=== PATIENT | male | born 1965 | race Caucasian/White ===

== ENCOUNTER 2017-01-27 14:23 | Inpatient (IN) ==
--- NOTE | 2017-01-27 16:00 | Emergency Department Note ---
Disposition Clinical Impression: Left upper arm pain Deep venous thrombosis of upper extremity Qualifiers: Affected thrombotic vein of extremity: other upper extremity vein Chronicity: acute Laterality: left Qualified Code(s): I82.622 - Acute embolism and thrombosis of deep veins of left upper extremity Disposition: Admitted As Inpatient Condition: Fair Time of Disposition: 19:52 General Adult HPI - General Chief complaint: ED Chest Pain Stated complaint: Left shoulder pain x 7 days Time Seen by Provider: 01/27/17 15:16 Source: patient Limitations: no limitations Nursing Notes Reviewed: Yes Vital Signs Reviewed: Yes - History of Present Illness HPI Narrative: [id number] male presents to ED for onset of left arm pain 8 days ago. Patient presents with abnormal vitals of tachycardia and hypertension, and is diaphoretic Patient states gradual onset of fairly noticeable pain that progressively worsened to 8 out of 10 sharp almost constant pain in his left arm. Patient states he has never had this before. Patient has a history of previous DVT in the right leg secondary to crush injury and muscle rupture. Patient has a history of hyper lipidemia, hypertension, diabetes, back fracture. Pain Scale: 8 - Related Data Home Medications Medication Instructions Recorded Confirmed metFORMIN [Glucophage] 1,000 mg PO BID 10/06/15 01/27/17 Amitriptyline [Elavil] 10 mg PO HS 01/27/17 01/27/17 Lisinopril/Hydrochlorothiazide 1 each PO QAM 01/27/17 01/27/17 [Zestoretic 20-12.5 mg Tablet] Meloxicam [Meloxicam] 7.5 mg PO DAILY 01/27/17 01/27/17 Metoprolol Succinate [Metoprolol 100 mg PO QPM 01/27/17 01/27/17 Succinate] amLODIPine [Norvasc] 5 mg PO DAILY 01/27/17 01/27/17 Allergies Allergy/AdvReac Type Severity Reaction Status Date / Time gabapentin AdvReac Gastrointestinal Verified 01/27/17 19:56 Upset Review of Systems: Patient denies fever, chills, cough, headache, nausea vomiting or diarrhea, vision changes, lightheadedness, chest pain, heart palpitations All systems ED: reviewed and negative except as stated. Review of Systems: As Per HPI Past Medical History - Past Medical History Attestation: Yes The following information was validated with the patient. Source: patient Medical history: Reports: DVT, diabetes, hypertension, kidney stones, other Psychiatric history: Reports: no psych history - Social History Smoking Status: Never smoker Smokeless Tobacco Status: Yes Alcohol use: Reports: occasionally Drug use: Reports: none Physical Exam Vital Signs Temperature 98.5 F 01/27/17 14:43 Pulse Rate 147 01/27/17 14:43 Respiratory Rate 20 01/27/17 14:43 Blood Pressure 144/94 01/27/17 14:43 O2 Sat by Pulse Oximetry 96 01/27/17 14:43 Temperature 97.5 F L 01/27/17 22:57 Pulse Rate 106 01/27/17 22:57 Respiratory Rate 18 01/27/17 22:57 Blood Pressure 130/95 01/27/17 22:57 O2 Sat by Pulse Oximetry 97 01/27/17 22:57 Oxygen Delivery Oxygen Delivery Room Air -General Appearance: Patient is a 51-year-old male who is alert and oriented 3 in no acute distress patient is uncomfortable secondary to pain in the left upper extremity -Neurological exam: Cranial nerves II-12 intact, no focal deficits observed, strength 5/5 right upper extremity and 4/5 of the upper extremity, no pronator drift, decreased sensation in left upper Extremity compared to right upper extremity, decreased net sql developer strength. Patient also has has decreased sensation to touch when compared to right upper extremity. No signs of trauma. - Head Head exam: atraumatic, normocephalic, normal inspection - Eye Eye exam: Present: normal appearance, PERRL, EOMI, negative for scleral icterus negative for conjunctival pallor - ENT ENT exam: normal exam, normal oropharynx, mucous membranes moist - Neck Neck exam: Present: normal inspection, full ROM, trachea midline, negative JVD - Chest Chest inspection: Present: Patient has bilateral equal rise and fall of chest wall. Non-tender to palpation. - Respiratory Respiratory exam: Clear to auscultation bilaterally without wheezes rales or rhonchi Cardiovascular Cardiovascular exam: Present: Fast rate normal rhythm no murmur rubs or gallops - Abdominal Exam Abdominal exam: Present: soft, nondistended, Non-Tender light and deep palpation in all quadrants. Bowel sounds normoactive throughout all 4 quadrants. Negative for hyper or hyperresonance. - Extremities Exam Extremities exam: Present: normal inspection, full ROM - Back Exam Back exam: Present: normal inspection, full ROM. Absent: tenderness, CVA tenderness (R), CVA tenderness (L) - Psychiatric Psychiatric exam: Present: normal affect, normal mood - Skin Skin exam: Present: warm, dry, intact, normal color - General Limitations: no limitations General appearance: alert Course - Reevaluation(s) Reevaluation #1: On reexamination patient's pain is 1/10 after 2 mg of morphine but still painful to palpation. Patient's skin tone and left upper extremity is more tender than right and slightly swollen. Patient has an elevated d-dimer 703 at this raises concern for possible DVT in her left upper extremity 1 and ACS at this time. We will perform X Violette Doppler. Patient's troponin is 0.00. Of note patient has a newly elevated creatinine for acute ALIREZA. Patient also states he has not IVC filter in place. Ordered 4 mg morphine as patient will be going for Doppler study. Time: 17:28 Reevaluation #2: Patient received a second dose of medications and is pain-free. Patient's Doppler study revealed DVT of basilic vein and left forearm. Patient has been informed and agrees to begin treatment with heparin and admission. Time: 19:46 - Consultations Consultation #1: Patient was scheduled for admission by hospitalist Dr. Jenkins Time: 19:56 Vital Signs Temperature 98.5 F 01/27/17 14:43 Pulse Rate 147 01/27/17 14:43 Respiratory Rate 20 01/27/17 14:43 Blood Pressure 144/94 01/27/17 14:43 O2 Sat by Pulse Oximetry 96 01/27/17 14:43 Temperature 97.5 F L 01/27/17 22:57 Pulse Rate 106 01/27/17 22:57 Respiratory Rate 18 01/27/17 22:57 Blood Pressure 130/95 01/27/17 22:57 O2 Sat by Pulse Oximetry 97 01/27/17 22:57 Oxygen Delivery Oxygen Delivery Room Air Medical Decision Making - [facility] Narrative Medical decision making narrative: Patient presented to the ED with concerns for possible ACS/NE, PE, DVT, CVA/ stroke/TIA, thoracic outlet obstruction. Given patient's history of previous DVT (provoked secondary to crush injury ) and worsening symptoms over the past 8 days along with presenting extremity showing slight edema and increase tanning of the skin from proximal forearm through distal part of forearm my clinical suspicion for DVT is high. I discussed this with my attending Dr. Plunkett who concurred with my assessment. After ruling out ACS with negative EKG, chest x-ray and troponins patient's d-dimer was elevated and so I ordered Doppler study of left upper extremity which showed basilic vein DVT. Patient was started on heparin and admitted to the hospital. Patient understands and agrees to treatment and plan. Patient's currently doing well in no acute distress and resting comfortably. - Medical Records Medical records reviewed: Yes I reviewed the patient's medical records. Old Records show MRI imaging for patient's history concerning lumbar fractures and patient has seen pain management past for his back injuries - Lab Data Lab results reviewed: Yes I reviewed the patient's lab results. Lab results narrative: Short CBC 01/27/17 Range/Units 15:38 WBC 6.3 (4.3-11.1) K/mcL Hgb 15.9 (12.9-16.9) g/dL Hct 46.5 (37.5-50.1) % Plt Count 193 (140-400) K/mcL Neutrophils # 4.1 (1.6-8.9) K/mcL BMP 01/27/17 Range/Units 15:38 Sodium 139 (136-145) mEq/L Potassium 4.4 (3.5-4.5) mEq/L Chloride 104 (98-109) mEq/L Carbon Dioxide 24 (19-29) mEq/L BUN 24 (8-26) mg/dL Creatinine 1.32 H (0.72-1.25) mg/dL Glucose 318 H (70-99) mg/dL Calcium 10.0 (8.6-10.8) mg/dL Cardiac Enzymes 01/27/17 01/27/17 Range/Units 20:27 15:38 Troponin I 0.00 0.00 (0-0.03) ng/mL Result diagrams: 01/27/17 15:38 01/27/17 15:38 Lab Results 01/27/17 01/27/17 01/27/17 Range/Units 15:38 15:38 15:38 WBC 6.3 (4.3-11.1) K/mcL RBC 5.37 (4.19-5.50) M/mcL Hgb 15.9 (12.9-16.9) g/dL Hct 46.5 (37.5-50.1) % MCV 86.6 (83.0-100.0) fL MCH 29.6 (28.0-33.3) pg MCHC 34.2 (31.6-35.5) g/dL RDW 12.5 (11.5-14.5) % Plt Count 193 (140-400) K/mcL MPV 10.1 (9.4-12.4) fL Immature Gran % 0.6 (0-4) % Seg Neutrophils % 64.6 % Lymphocytes % 25.6 % Monocytes % 7.0 % Eosinophils % 1.6 % Basophils % 0.6 % Neutrophils # 4.1 (1.6-8.9) K/mcL Lymphocytes # 1.6 (0.6-4.6) K/mcL Monocytes # 0.4 (0.0-1.3) K/mcL Eosinophils # 0.1 (0.0-0.6) K/mcL Basophils # 0.0 (0.0-0.2) K/mcL PT (9.4-12.1) Seconds INR APTT (26.0-36.0) Seconds Fibrinogen (169-393) mg/dL D-Dimer (0-500) ng/mLFEU Heparin Anti-Xa, Unfract (0.30-0.70) IU/mL Sodium 139 (136-145) mEq/L Potassium 4.4 (3.5-4.5) mEq/L Chloride 104 (98-109) mEq/L Carbon Dioxide 24 (19-29) mEq/L BUN 24 (8-26) mg/dL Creatinine 1.32 H (0.72-1.25) mg/dL Est GFR ( Amer) > 60 (> 60) Est GFR (Non-Af Amer) 58 L (> 60) BUN/Creatinine Ratio 18 (6-26) Glucose 318 H (70-99) mg/dL Calculated Osmolality 304 H (280-300) Calcium 10.0 (8.6-10.8) mg/dL Troponin I 0.00 (0-0.03) ng/mL 01/27/17 01/27/17 01/27/17 Range/Units 15:38 20:27 20:27 WBC (4.3-11.1) K/mcL RBC (4.19-5.50) M/mcL Hgb (12.9-16.9) g/dL Hct (37.5-50.1) % MCV (83.0-100.0) fL MCH (28.0-33.3) pg MCHC (31.6-35.5) g/dL RDW (11.5-14.5) % Plt Count (140-400) K/mcL MPV (9.4-12.4) fL Immature Gran % (0-4) % Seg Neutrophils % % Lymphocytes % % Monocytes % % Eosinophils % % Basophils % % Neutrophils # (1.6-8.9) K/mcL Lymphocytes # (0.6-4.6) K/mcL Monocytes # (0.0-1.3) K/mcL Eosinophils # (0.0-0.6) K/mcL Basophils # (0.0-0.2) K/mcL PT 10.5 (9.4-12.1) Seconds INR 1.0 APTT 24.8 L (26.0-36.0) Seconds Fibrinogen 267 (169-393) mg/dL D-Dimer 703 H 826 H (0-500) ng/mLFEU Heparin Anti-Xa, Unfract 0.01 L (0.30-0.70) IU/mL Sodium (136-145) mEq/L Potassium (3.5-4.5) mEq/L Chloride (98-109) mEq/L Carbon Dioxide (19-29) mEq/L BUN (8-26) mg/dL Creatinine (0.72-1.25) mg/dL Est GFR ( Amer) (> 60) Est GFR (Non-Af Amer) (> 60) BUN/Creatinine Ratio (6-26) Glucose (70-99) mg/dL Calculated Osmolality (280-300) Calcium (8.6-10.8) mg/dL Troponin I 0.00 (0-0.03) ng/mL - Radiology Data Radiology results reviewed: Yes I reviewed the patient's radiology results. Chest X-Ray 01/27/17 16:03 IMPRESSION: No acute process. D/ / Avni Temple MD / Avni Temple MD Interpreting Provider: Avni Temple MD
[2017-01-27] MEDS ORDERED: Aspirin 81 MG TAB.CHEW PO ONE (16:18)
--- NOTE | 2017-01-27 16:25 | Emergency Department Note ---
START Narrative - START START: I examined this patient and my medical decision-making was reviewed with the ELECTRIC MOTOR ASSEMBLER AND TESTER/PA/Advanced Practice Nurse/Resident Physician. I agree with the documented findings, disposition and treatment plan as described except to the extent set forth below. ED attending note: I saw this Patient with the emergency medicine resident Dr. BAEZ. Please see a copy of his note for details of the H&P, evaluation, management and disposition of this emergency Department patient. We independently had oepy-ca-eowy contact with the patient. Briefly: A 51-year-old male drove himself from the [facility] for 8 days of atraumatic left arm pain and numbness. Patient has past medical history significant for chronic back pain hypertension hyperlipidemia tobacco use and diabetes. He has had no cardiac workup in the past. His father had his first heart attack in his mid 30s. Patient arrives tachycardic between 125 and 135 sinus rhythm. He is slightly tremulous and appears anxious and he says he is "in a heck of a lot of pain". He states he gets like this when the pain gets real bad. Denies fever, sputum, chills, ill contacts, recent travel or medication changes. His neurologic examination showed that he has some dysesthesias but no focal motor weakness. He has no skin changes. Denies IV drug use. Denies any trauma to his upper extremity. States she has been feeling a little short of breath as well. Patient will be getting parenteral fluids anti-medics pain medicine and anxiolytics and will screen for acute coronary syndrome with troponin chest x-ray and other screening labs. Patient does have a prior history of DVT that was provoked from a muscle tear. We will also obtain a d-dimer since he is low risk. Providing 30 minutes of critical care services for this patient. Disposition pending.
[2017-01-27] MEDS ORDERED: 0.9 % Sodium Chloride 500 ML IVC ONE (16:26)
[2017-01-27] MEDS ORDERED: Ondansetron 4 MG/2 ML VIAL IVP ONE ×2 (16:27→20:02)
[2017-01-27] MEDS ORDERED: *HR* LORazepam 2 MG/ML VIAL IVP ONE ×2 (16:28→19:46)
[2017-01-27] MEDS ORDERED: *HR* Morphine 2 MG/ML SYRINGE IVP PRN (16:29)
[2017-01-27 16:45] LABS: Basophils % 0.6 %; Eosinophils # 0.1 K/mcL (0.0-0.6); Eosinophils % 1.6 %; Hematocrit 46.5 % (37.5-50.1); Hemoglobin 15.9 g/dL (12.9-16.9); Immature Granulocytes % 0.6 % (0-4); Lymphocytes # 1.6 K/mcL (0.6-4.6); Lymphocytes % 25.6 %; Mean Corpuscular HGB Conc 34.2 g/dL (31.6-35.5); Mean Corpuscular Hemoglobin 29.6 pg (28.0-33.3); Mean Corpuscular Volume 86.6 fL (83.0-100.0); Mean Platelet Volume 10.1 fL (9.4-12.4); Monocytes # 0.4 K/mcL (0.0-1.3); Neutrophils # 4.1 K/mcL (1.6-8.9); Platelet Count 193 K/mcL (140-400); Red Blood Count 5.37 M/mcL (4.19-5.50); Red Cell Distribution Width 12.5 % (11.5-14.5); Segmented Neutrophils % 64.6 %
[2017-01-27 16:52] LABS: BUN/Creatinine Ratio 18 (6-26); Blood Urea Nitrogen 24 mg/dL (8-26); Carbon Dioxide 24 mEq/L (19-29); Chloride 104 mEq/L (98-109); Glucose 318 mg/dL (70-99); Osmolality,Calculated 304 (280-300); Potassium 4.4 mEq/L (3.5-4.5); Sodium 139 mEq/L (136-145); eGFR For African Americans > 60 (> 60); eGFR For Non-African Americans 58 (> 60)
[2017-01-27] MEDS ORDERED: *HR* Morphine 2 MG/ML SYRINGE IVP ONE (17:26)
[2017-01-27] MEDS ORDERED: *HR* HYDROmorphone (PF) 1 MG/ML SYRINGE IVP ONE (18:41)
[2017-01-27] MEDS ORDERED: *HR* Heparin 5,000 UNIT/ML VIAL IVP PRN (19:45)
[2017-01-27] MEDS ORDERED: *HR* Heparin 5,000 UNIT/ML VIAL IVP ONE (19:45)
[2017-01-27 21:01] LABS: Heparin anti-factor XA UFH 0.01 IU/mL (0.30-0.70)
[2017-01-27 21:03] LABS: Activated Partial Thrombo Time 24.8 Seconds (26.0-36.0)
[2017-01-27 21:04] LABS: Prothrombin Time 10.5 Seconds (9.4-12.1)
[2017-01-27] MEDS ORDERED: Dextrose Gel 15 GM PO PRN ×2 (21:31)
[2017-01-27] MEDS ORDERED: *HR* Dextrose 50 % in Water (Syg) 50 ML SYRINGE IVP PRN (21:31)
[2017-01-27] MEDS ORDERED: D5% in Water 1,000 ML IVC PRN (21:31)
[2017-01-27] MEDS ORDERED: Acetaminophen 325 MG TABLET PO PRN (21:35)
--- NOTE | 2017-01-27 21:35 | Event Note ---
Date of Encounter: 01/27/17 Time of Encounter: 21:33 Patient seen and examined with nurse practitioner. Agree with that assessment and plan. Patients with prior history of provoked right leg DVT after crush injury in 2008 presents today with unprovoked left arm DVT. HyperCoagulable workup sent. Start antiregulation with heparin. Hematology consultation.
--- NOTE | 2017-01-27 21:39 | Internal Med History&Physical ---
Date of Encounter: 01/27/17 Time of Encounter: 21:39 Assessment and Plan (1) Deep venous thrombosis of upper extremity Current visit: Yes Status: Acute 1 patient has been experiencing left upper arm pain for approximately 8 days. Left upper extremity venous doppler done, patient appears positive for DVT, there is a thrombus seen in the left brachial vein. He denies any injury to his This appears to be unprovoked. We will obtain a hypercoagulable panel. Initiate heparin drip 2 we will consult heme/onc -due to unprovoked Qualifiers: Affected thrombotic vein of extremity: other upper extremity vein Chronicity: acute Laterality: left Qualified Code(s): I82.622 - Acute embolism and thrombosis of deep veins of left upper extremity (2) ALIREZA (acute kidney injury) Current visit: Yes Status: Acute Patient's creatinine is 1.31. His baseline less than 1. He has been taking NSAIDs OLU and diuretic. We will hold this for now we will give IV fluids overnight recheck creatinine in a.m. 2 avoid nephrotoxins (3) Diabetes Current visit: No Status: Chronic 1 Accu-Cheks before meals at bedtime with sliding scale insulin for now. We will hold metformin and resume once discharge 2 diabetic diet Qualifiers: Diabetes mellitus type: type 2 Diabetes mellitus complication status: without complication Diabetes mellitus terminal operations manager insulin use: without jail use Qualified Code(s): E11.9 - Type 2 diabetes mellitus without complications (4) Hypertension Current visit: No Status: Chronic 1 we will continue with home medications we will hold his lisinopril and hydrochlorothiazide for now due to some AK I resumed once back to baseline 2 low sodium diet Qualifiers: Hypertension type: essential hypertension Qualified Code(s): I10 - Essential (primary) hypertension (5) DVT prophylaxis Current visit: Yes Status: Acute 1 heparin drip Internal Medicine - H&P: HPI Chief complaint: L arm pain Admitted From: Emergency Dept Plans for Post Hospital Care: Home History of present illness: Mr. Knight is a 51 year old male with past medical history of diabetes per tension hyperlipidemia DVT secondary to trauma. Patient has been experiencing left arm pain which started approximately 8 days ago. This was a gradual onset starting at the shoulder and radiating down to just below the elbow. The pain progressively worsened over time to the point where he felt it was unbearable. He had 8 out of 10 and was constant and there were no relieving or aggravating factors. He did note that his left arm was swollen. He does have a past history of DVT in his right leg secondary to a trauma however he denies any other incidences of DVT. He states that his father had experienced blood clots in the past he had a MS at 38 and he from CVA in 2016. He denies any fevers chills nausea vomiting diarrhea, pain chest pain or shortness of breath this time. He presented to the ER the above complaints. Upon presentation patient was tachycardic and hypertensive and diaphoretic at work was obtained which did reveal some AK creatinine 1.2 his d-dimer was elevated at 73 troponin was 0. Left upper extremity venous Doppler completed which was positive for DVT thrombus in the left brachial vein. Patient has been admitted for further workup and evaluation. Presently the patient denies any chest pain or shortness of breath he does complain of left arm pain requesting pain medication as well as helping to eat. His lung sounds are clear heart sounds are regular S1 and S2 with no rubs clicks, murmurs noted. EKG sinus tachycardia left arm is swollen and tender to touch he has brisk capillary refill extremities pink and warm palpable pulses. I reviewed this case with DR Jenkins who agrees with plan Past Med Surg Social Fam HX - Past Medical History Medical history: DVT, diabetes, hypertension, kidney stones, other Psychiatric history: no psych history - Past Surgical History Surgical History: herniorrhaphy, vasectomy, other - Social History Smoking Status: Never smoker Smokeless Tobacco Status: Yes Alcohol use: occasionally Drug use: none - Family History Father Living Status: Cause of : CVA Hx Family Cardiac Disorders: Yes (MS) Mother Living Status: Cause of : Cancer Internal Medicine - H&P: Meds metFORMIN [Glucophage] 1,000 mg PO BID 10/06/15 [History] Amitriptyline [Elavil] 10 mg PO HS 01/27/17 [History] Lisinopril/Hydrochlorothiazide [Zestoretic 20-12.5 mg Tablet] 1 each PO QAM 09/10 [History] Meloxicam [Meloxicam] 7.5 mg PO DAILY 01/27/17 [History] Metoprolol Succinate [Metoprolol Succinate] 100 mg PO QPM 01/27/17 [History] amLODIPine [Norvasc] 5 mg PO DAILY 01/27/17 [History] Allergies gabapentin Adverse Reaction (Verified 01/27/17 19:56) Gastrointestinal Upset All Systems PM: A 10-system review of systems was performed and is negative for pertinent findings except as documented above in the HPI. - Constitutional Constitutional: no chills, no fever(s), no night sweats - EENT Eyes: no change in vision, no discharge, no pain, no photophobia Ears: no ear discharge, no ear pain, no tinnitus Nose, mouth and throat: no dysphagia, no nasal discharge, no neck pain, no sore throat - Cardiovascular Cardiovascular ROS IM: no chest pain, no diaphoresis, no dyspnea, no lightheadedness, no palpitations, no syncope - Respiratory Respiratory: no cough, no dyspnea, no wheezing, no excessive phlegm production - Musculoskeletal Musculoskeletal ROS IM: numbness Additional comments: Swelling to the left arm - Integumentary Integumentary IM: no rash, no unusual bruising - Neurological Neurological ROS: no confusion, no convulsions, no focal weakness, no numbness, no tingling, no tremor(s) - Hematologic/Lymphatic Hematologic/Lymphatic: no easy bruising - Constitutional Vitals: Temp Pulse Resp BP Pulse Ox 98.5 F 109 16 141/101 97 01/27/17 14:43 01/27/17 18:46 01/27/17 21:03 01/27/17 21:03 01/27/17 18:46 General appearance: Present: A&O X 3, answers questions appropriately - Head Head exam: Present: atraumatic, normocephalic - Eye Eye exam: Present: PERRL, conjuntiva pink, sclera anicteric Pupils: Present: PERRL - Neck Neck exam general surgery: Present: supple, trachea midline. Absent: lymphadenopathy - Respiratory Respiratory exam: Present: CTAB. Absent: accessory muscle use, rales, rhonchi, wheezes - Cardiovascular Cardiovascular exam: Present: RRR, +S1, +S2. Absent: diastolic murmur, gallop, rubs, systolic murmur - GI/Abdominal GI/Abdominal exam: Present: normal bowel sounds, soft, no peritoneal signs. Absent: distended, tenderness - Extremities Exam Extremities exam: Present: warm, radial pulses palpable and symetrical. Absent : calf tenderness, cyanotic, pedal edema - Expanded Upper Extremities Exam Upper Arm exam: Present: swelling, tenderness Internal Med - H&P Results - Labs CBC & Chem 7: 01/27/17 15:38 01/27/17 15:38 - EKG Data EKG shows normal: sinus rhythm Rate: tachycardia - EKG Data Prior EKG available for review: yes When compared to previous EKG: there is no significant change - Diagnostic Studies Other Images Additional comments: Chest X-Ray 01/27/17 16:03 IMPRESSION: No acute process. D/ / Avni Temple MD / Avni Temple MD Interpreting Provider: Avni Temple MD
[2017-01-27] MEDS ORDERED: 0.9 % Sodium Chloride 1,000 ML IVC SCH (21:45)
[2017-01-27] MEDS: Metoprolol XL (24 HR) Succ 50 MG TAB.ER.24H PO SCH (22:45)
[2017-01-27] MEDS: *HR* HYDROcodone/Acet 5/325 mg TABLET PO PRN (22:45)
[2017-01-27] MEDS: Heparin 25,000 UNIT/500 ML D5W 25,000 UNIT/500 ML MLS IVC SCH (23:01)
[2017-01-28] MEDS: hydrOXYzine pamoate 25 MG CAPSULE PO PRN ×2 (00:06→21:06)
[2017-01-28] MEDS: *HR* HYDROcodone/Acet 5/325 mg TABLET PO PRN ×4 (04:32→22:52)
[2017-01-28] MEDS ORDERED: *HR* HYDROmorphone (PF) 1 MG/ML SYRINGE IVP ONE (04:37)
[2017-01-28] MEDS: Ondansetron 4 MG/2 ML VIAL IVP PRN ×2 (05:19→15:37)
[2017-01-28 05:27] LABS: Basophils % 0.4 %; Eosinophils # 0.1 K/mcL (0.0-0.6); Eosinophils % 1.8 %; Immature Granulocytes % 0.4 % (0-4); Lymphocytes # 1.5 K/mcL (0.6-4.6); Lymphocytes % 25.7 %; Mean Corpuscular HGB Conc 34.3 g/dL (31.6-35.5); Mean Corpuscular Volume 87.7 fL (83.0-100.0); Mean Platelet Volume 9.9 fL (9.4-12.4); Monocytes # 0.3 K/mcL (0.0-1.3); Neutrophils # 3.7 K/mcL (1.6-8.9); Platelet Count 156 K/mcL (140-400); Red Blood Count 4.56 M/mcL (4.19-5.50); Red Cell Distribution Width 12.5 % (11.5-14.5); Segmented Neutrophils % 65.7 %
[2017-01-28 05:28] LABS: Hemoglobin 13.7 g/dL (12.9-16.9)
[2017-01-28 05:46] LABS: BUN/Creatinine Ratio 18 (6-26); Blood Urea Nitrogen 21 mg/dL (8-26); Calcium 9.3 mg/dL (8.6-10.8); Carbon Dioxide 26 mEq/L (19-29); Chloride 102 mEq/L (98-109); Chol/HDL Ratio 6.8 (0-4.9); Glucose 277 mg/dL (70-99); HDL Cholesterol 35 mg/dL (40-59); Magnesium 1.4 mg/dL (1.6-2.6); Osmolality,Calculated 295 (280-300); Potassium 4.7 mEq/L (3.5-4.5); Sodium 136 mEq/L (136-145); Triglycerides 462 mg/dL (< 150); eGFR For African Americans > 60 (> 60); eGFR For Non-African Americans > 60 (> 60)
[2017-01-28 05:47] LABS: Cholesterol 239 mg/dL (< 200)
[2017-01-28] MEDS: Insulin LISPRO 300 UNITS/3 ML VIAL SQ SCH ×4 (07:59→21:20)
[2017-01-28] MEDS: amLODIPine 5 MG TABLET PO SCH (07:59)
[2017-01-28] MEDS ORDERED: Magnesium Sulfate 2 GM in D5% in Water 100 ML IVPB ONE (08:10)
--- NOTE | 2017-01-28 08:21 | Internal Med Progress Note ---
Date of Encounter: 01/28/17 Time of Encounter: 08:19 - Assessment and plan (1) Deep venous thrombosis of upper extremity Current Visit: Yes Status: Acute Assessment and plan: Protocol plan workup pending hematology consult pending patient on IV heparin Qualifiers: Affected thrombotic vein of extremity: other upper extremity vein Chronicity: acute Laterality: left Qualified Code(s): I82.622 - Acute embolism and thrombosis of deep veins of left upper extremity (2) Dyslipidemia associated with type 2 diabetes mellitus Current Visit: Yes Status: Acute Assessment and plan: Accu-Chek 4 times a day with sliding scale coverage. Hemoglobin A1c ordered and pending. 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 Qualifiers: Hypertension type: essential hypertension Qualified Code(s): I10 - Essential (primary) hypertension - Subjective Interval history: Mr. Kale Knight is a 51-year-old male past medical history significant for diabetes, hypertension and dyslipidemia. His presented with left brachial vein DVT and while correlation workup is pending he is on IV heparin. Oncology is consulted by admitting team. This hematology agrees he can be started on longer lasting form of anticoagulation. His cholesterol and triglycerides are noted quite elevated and I have some doubts that probably his diabetes is not very well controlled with just the Glucophage either. I will start him on Lipitor considering the multiple risk factor but also add hemoglobin A1c. His renal function were normal initially but resolved spontaneously with IV hydration. Magnesium is noted low and will be supplemented. Accu-Chek 4 times a day with sliding scale coverage for diabetes and daily blood pressure monitoring. Discussed with hematology who recommended some bone lysis. In interventional radiology contacted who referred us to vascular surgery. Discussed the case with vascular surgery who will see the patient however not in favor of embolectomy or thrombus lysis. Patient is complaining of sore excruciating pain. I examined his left arm and brachial vein area was seems quite unremarkable without any superficial erythema or swelling which could indicate underlying thrombophlebitis. Good radial pulse. Discussed with nurse and for now I think combination of her [place] and breakthrough low-dose Dilaudid is adequate we may give her Dilaudid at every 2 intervals if it is really necessary during the night however keep the dose around 0.5. Patient is planned to be discharged tomorrow on oral anticoagulation if vascular surgery agrees. - Constitutional Vitals: Temp Pulse Resp BP Pulse Ox 97.8 F 99 14 116/73 96 01/28/17 06:59 01/28/17 06:59 01/28/17 06:59 01/28/17 06:59 01/28/17 06:59 General appearance: Present: A&O X 3, answers questions appropriately - Head Head exam: Present: atraumatic, normocephalic - Eye Eye exam: Present: PERRL, conjuntiva pink, sclera anicteric Pupils: Present: PERRL - Neck Neck exam general surgery: Present: supple, trachea midline. Absent: lymphadenopathy - Respiratory Respiratory exam: Present: CTAB. Absent: accessory muscle use, rales, rhonchi, wheezes - Cardiovascular Cardiovascular exam: Present: RRR, +S1, +S2. Absent: diastolic murmur, gallop, rubs, systolic murmur - GI/Abdominal GI/Abdominal exam: Present: normal bowel sounds, soft, no peritoneal signs. Absent: distended, tenderness - Extremities Exam Extremities exam: Present: warm, radial pulses palpable and symetrical. Absent : calf tenderness, cyanotic, pedal edema - Neurological Exam Neurological exam: Present: CN II-XII intact, oriented X3, no focal deficits. Absent: pronater drift, facial droop, speech deficit - Skin Skin exam: Present: dry, intact Internal Medicine: Result - Labs CBC & Chem 7: 01/28/17 04:56 01/28/17 04:56 Labs: Short CBC 01/28/17 Range/Units 04:56 WBC 5.7 (4.3-11.1) K/mcL Hgb 13.7 D (12.9-16.9) g/dL Hct 40.0 (37.5-50.1) % Plt Count 156 (140-400) K/mcL Neutrophils # 3.7 (1.6-8.9) K/mcL BMP 01/28/17 04:56 Sodium 136 Potassium 4.7 H Chloride 102 Carbon Dioxide 26 BUN 21 Creatinine 1.16 Glucose 277 H Calcium 9.3 Cardiac Enzymes 01/28/17 Range/Units 04:56 Troponin I 0.00 (0-0.03) ng/mL - ABG Interpretation ABG results: PT/INR, D-dimer PT 10.5 Seconds (9.4-12.1) 01/27/17 20:27 D-Dimer 826 ng/mLFEU (0-500) H 01/27/17 20:27 - VTE Documentation of Mechanical Device: Graduated compression elastic hosiery Consult Discharge Plan - Plan Referrals: NONE,PCP [Non-Partnered Physician] -
--- NOTE | 2017-01-28 09:40 | Oncology Inp Consult Note ---
Date of Encounter: 01/28/17 Time of Encounter: 09:29 Assessment and Plan (1) Deep venous thrombosis of upper extremity Status: Acute Assessment and plan: Mr. Knight's current episode of left upper extremity DVT ( involving the left brachial vein ) seems to be consistent with an unprovoked event. In view of the acute presentation, and that he is acutely symptomatic, I would recommend urgent consult to IR or vascular to consider mechanical and chemical thrombolysis. At this time I would recommend to continue heparin drip, APTT goal between 1.5-2.6 of control. He is tolerating anticoagulation well, without bleeding issues. Reports not significant history of bleeding events. - Regarding pain management, in view that he is still very symptomatic even after a dose of norco, I would recommend to escalate on his pain management. - He does not have contra indications to full anticoagulation or any of the new anticoagulants. For now I would recommend to continue heparin drip, but I'll see him in AM to assess the appropriate time to transition to apixaban ( 5 mg PO BID). - He will need anticoagulation at least for 3 months. It may need a longer course depending of the duration of his hypercoagulable work up and depending of clinical progression or resolution of his symptoms. I'd recommend to complete an hypercoagulable work up and arranging for an outpatient hematology follow up to review the results and discuss final recommendations regarding the duration of anticoagulation. - Hypercoagulable work up: Factor V leiden, Prothrombin gene mutation, anti cardiolipin antibodies ( IgG, IgM), beta 2 glycoprotein, Protein C, protein S, homocystein , anti thrombin III. he is aware that these tests are sent out and probably will take several days and wont be available during the course of his hospitalization. I will hold off on lupus anticoagulant for now in view that heparin can cause false positive results . - He has an IVC filter in place. In view that it has been on place for several years, I would not recommend to remove it. He was advised to continue using compression stockings in his right lower extremity. Qualifiers: Affected thrombotic vein of extremity: other upper extremity vein Chronicity: acute Laterality: left Qualified Code(s): I82.622 - Acute embolism and thrombosis of deep veins of left upper extremity - Data of Consult Requesting Physician: Luis E Perez Primary Care Provider: Vince George, - Consult Narrative Reason for consult: management of acute left upper extremity thrombosis History of present illness: Mr. Knight is a 51 year old male with history of DM, hyperlipidemia, HTN, provoked right lower extremity DVT secondary to trauma in 2008 for which he reports treatment with 6 months of anticoagulation ( coumadin) and placement of IVC filter that has not been removed( apparently placed due to the extensiveness of the clot, since there was not associated bleeding or contra indications to anticoagulation). He presented with a history of left arm pain that started 9 days ago but got significantly worse 3 days ago in despite of being taking tylenol and NSAIDs. He was diagnosed in the ED after US showed a thrombus in the left brachial vein ( preliminary report) and started on heparin drip. His symptoms were mainly caracterized for pain, although there was slight left upper extremity swelling at presentation ( that still persists at the time of the visit today). He reports significant improvement of his pain yesterday after receiving IV opiates, but the effect was short, spending most of the night awake due to pain, and rating his pain as an 8/10 during the visit in despite of having received norco recently. He reports that in 2008 he was diagnosed with a clot following a work related accident. Reports not history of recurrent clots since then. Denies any family history of VTE, but her father experienced an IL in the late 30s and eventually due to what he believes was pancreatic cancer. He reports that his treatment in 2008 consisted in 6 months of anticoagulation with coumadin, that was well tolerated without bleeding complications. He reports that an IVC filter was placed for acute management of his DVT, but was never removed. At the time of the placement of the IVC filter there were not bleeding events or other contra indications to anticoagulation. He denies any recent episode of CP, SOB, nausea, vomiting. He tolerated breakfast early today around 8 AM, with not complaints. Past Med Surg Social Fam HX - Past Medical History Medical history: DVT, diabetes, hypertension, kidney stones, other Psychiatric history: no psych history - Past Surgical History Surgical History: herniorrhaphy, vasectomy, other - Social History Smoking Status: Never smoker Smokeless Tobacco Status: Yes Alcohol use: occasionally Drug use: none - Family History Father Living Status: Cause of : CVA Hx Family Cardiac Disorders: Yes ([place]) Mother Living Status: Cause of : Cancer Medications and Allergies metFORMIN [Glucophage] 1,000 mg PO BID 10/06/15 [History] Amitriptyline [Elavil] 10 mg PO HS 01/27/17 [History] Lisinopril/Hydrochlorothiazide [Zestoretic 20-12.5 mg Tablet] 1 each PO QAM 09/10 [History] Meloxicam [Meloxicam] 7.5 mg PO DAILY 01/27/17 [History] Metoprolol Succinate [Metoprolol Succinate] 100 mg PO QPM 01/27/17 [History] amLODIPine [Norvasc] 5 mg PO DAILY 01/27/17 [History] Allergies gabapentin Adverse Reaction (Verified 01/27/17 19:56) Gastrointestinal Upset Constitutional: Present: frequent falls. Absent: fever(s), lethargy Eyes: Present: as per HPI Cardiovascular: Absent: chest pain, chest pain at rest, chest pain with activity , claudication, irregular heart rhythm Respiratory: Absent: cough, pain on inspiration, excessive phlegm production Gastrointestinal: Absent: abdominal pain Additional comments: left arm at rest and with active ROM. slight swelling of left arm, and forearm. distal radial pulse present. Neurological: Absent: behavioral changes, loss of vision Psychiatric: Absent: confusion Hematologic/Lymphatic: Present: as per HPI Oncology - Exam - Constitutional Vitals: Temp Pulse Resp BP Pulse Ox 97.8 F 99 14 116/73 96 01/28/17 06:59 01/28/17 06:59 01/28/17 06:59 01/28/17 06:59 01/28/17 06:59 General appearance: obese - Head Head exam: Present: normal inspection - Eye Eye exam: Present: EOMI - ENT ENT exam: Present: normal exam - Neck Neck exam: Present: normal inspection - Respiratory Respiratory exam: Present: CTAB - Cardiovascular Cardiovascular exam: Present: RRR - GI/Abdominal GI/Abdominal exam: Present: normal bowel sounds. Absent: organomegaly, rebound , tenderness - Extremities Exam Extremities exam: Present: tenderness - Neurological Exam Neurological exam: Present: oriented X3, strengths equal and symetr throughout - Psychiatric Psychiatric exam: Present: normal affect Oncology - Results - Labs Labs: Short CBC 01/28/17 Range/Units 04:56 WBC 5.7 (4.3-11.1) K/mcL Hgb 13.7 D (12.9-16.9) g/dL Hct 40.0 (37.5-50.1) % Plt Count 156 (140-400) K/mcL Neutrophils # 3.7 (1.6-8.9) K/mcL BMP 01/28/17 04:56 Sodium 136 Potassium 4.7 H Chloride 102 Carbon Dioxide 26 BUN 21 Creatinine 1.16 Glucose 277 H Calcium 9.3 Cardiac Enzymes 01/28/17 Range/Units 04:56 Troponin I 0.00 (0-0.03) ng/mL Consult Discharge Plan - Plan Referrals: NONE,PCP [Non-Partnered Physician] -
[2017-01-28] MEDS: *HR* HYDROmorphone (PF) 1 MG/ML SYRINGE IVP PRN ×4 (09:43→20:59)
[2017-01-28] MEDS: *HR* Heparin 5,000 UNIT/ML VIAL IVP PRN ×2 (11:10→19:08)
--- NOTE | 2017-01-28 11:39 | Electrocardiograph Report ---
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
[2017-01-28 12:17] LABS: Plt Function ADP Closure TIME 71 Seconds (65-109); Plt Function Epi Closure Time 116 Seconds (87-175)
[2017-01-28] MEDS: Metoprolol XL (24 HR) Succ 50 MG TAB.ER.24H PO SCH (17:27)
--- NOTE | 2017-01-28 18:03 | Venous Imaging Report ---
UE Venous Duplex Patient Name:Kale Knight Order Number:[id number] Procedure Date:01/27/2017 Date:1965Age:51 yrs Gender:Male Location:[facility] ED Room #: 25 Modeling Agent:Martín Boucher Referring MD:Cain Ac DO molecular modeler:None Reading MD:Levi Buckley MD , FACS Primary Indications:Possible upper extremity DVT Secondary Indications: Risk Factors Yes/No Hx of DVT Yes Spring Filter Yes Impressions: Upper extremity abnormal deep exam: left Brachial vein acute thrombosis. Left upper extremity: normal superficial exam. Right upper extremity: normal contralateral exam. Recommendations: Critical findings reported to Dr. Ac in person by Martín Boucher. Findings Venous Duplex Results: Left: There is a thrombus seen in the left brachial. Prior Study: No prior study available for comparison. Upper Extremity Venous Duplex Side Vein Compress Spontaneous Flow Augment Left Jugular Normal Yes Phasic Yes Left Subclavian Normal Yes Phasic Yes Left Axillary Normal Yes Phasic Yes Left Brachial None no Absent no Left Cephalic Normal Yes Phasic Yes Left Basilic Normal Yes Phasic Yes Left Radial Normal Yes Phasic Yes Left Ulnar Normal Yes Phasic Yes Right Subclavian Normal Yes Phasic Yes Updated by Levi Buckley MD, FACS on 01/28/2017 5:56:44 PM Levi Buckley MD electronically signed on 01/28/2017 5:57:04 PM with status of Final
[2017-01-28] MEDS: Heparin 25,000 UNIT/500 ML D5W 25,000 UNIT/500 ML MLS IVC SCH (19:53)
--- NOTE | 2017-01-28 20:31 | Vascular/Endovasc Consult Note ---
Date of Encounter: 01/28/17 Time of Encounter: 20:28 Assessment and Plan (1) Deep venous thrombosis of upper extremity Current Visit: Yes Status: Acute The patient has an unexplained left upper extremity DVT. He denies any provocative behavior or positions that would lead to the DVT. The isolated nature of the DVT does not explain all the patient's pain as he actually has pain out of proportion to what would be expected with this deep venous thrombosis location. Use of thrombolytic agents is not indicated for such an isolated issue with no signs of vascular compromise. I discussed this in full with the patient and his family. All questions were answered. Patient was recommended to proceed with a course of anticoagulation with conversion to oral medications and mechanical assistance with elevation of the upper extremity. I see no findings to suggest compartment syndrome or left upper extremity phlegmasia. Qualifiers: Affected thrombotic vein of extremity: brachial Chronicity: acute Laterality: left Qualified Code(s): I82.622 - Acute embolism and thrombosis of deep veins of left upper extremity (2) Left upper arm pain Current Visit: Yes Status: Acute Left upper extremity pain secondary to DVT. However as noted above the pain is out of proportion to the findings on noninvasive testing. There are no findings of vascular compromise. - History of Present Illness Consult date: 01/28/17 Consult reason: Left upper extremity DVT Chief complaint: Left upper extremity pain History of present illness: Mr. Knight is a 51 year old male Seen in consultation this evening for evaluation of left upper extremity issues. The patient states that about 8 days ago he had the abrupt onset of discomfort in the left upper extremity. The pain began at the area of the deltoid region anteriorly and extended distally into the proximal lateral aspect of the left forearm. He specifically denies any type of trauma or injury or unusual behavior or position that predated these symptoms. He has not had any previous similar symptoms. He denies any injuries to his neck or upper thoracic region. A venous duplex scan was performed last night which revealed an isolated thrombus in the left brachial vein. I have personally reviewed these images. His past history is positive for a right lower extremity deep venous thrombosis in 2008. The patient relates this to some type of work event and work rhythm. He was diagnosed T says having a thrombus that extended from the femoral to the tibial areas. He also had an IVC filter placed by Dr. Millard at that time. The patient does not give a history of pulmonary embolization. The patient is a right-handed individual. He is not employed. He states he is on disability due to lumbar spine fracture and other orthopedic concerns. Past Med Surg Social Fam HX - Past Medical History Medical history: DVT, diabetes, hypertension, kidney stones, other Psychiatric history: no psych history - Past Surgical History Surgical History: herniorrhaphy, IVC Filter ([address] Millard), vasectomy, other - Social History Smoking Status: Never smoker Smokeless Tobacco Status: Yes Alcohol use: occasionally Drug use: none - Family History Father Living Status: Cause of : CVA Hx Family Cardiac Disorders: Yes ([place]) Mother Living Status: Cause of : Cancer Medications and Allergies metFORMIN [Glucophage] 1,000 mg PO BID 10/06/15 [History] Amitriptyline [Elavil] 10 mg PO HS 01/27/17 [History] Lisinopril/Hydrochlorothiazide [Zestoretic 20-12.5 mg Tablet] 1 each PO QAM 09/10 [History] Meloxicam [Meloxicam] 7.5 mg PO DAILY 01/27/17 [History] Metoprolol Succinate [Metoprolol Succinate] 100 mg PO QPM 01/27/17 [History] amLODIPine [Norvasc] 5 mg PO DAILY 01/27/17 [History] Allergies gabapentin Adverse Reaction (Verified 01/27/17 19:56) Gastrointestinal Upset All Systems Review: A 10-system review of systems was performed and is negative for pertinent findings except as documented above in the HPI. Exam Vital Signs, Last 4 Hours Temp Pulse Resp BP Pulse Ox 01/28/17 19:14 98.3 F 98 16 149/101 95 General: Present: Conversant, No Apparent Distress, Well developed, Well nourished HEENT: Present: Atraumatic, Normocephaly, Trachea midline Neck: Absent: JVD, Lymphadenopathy, Left Carotid bruit, Right Carotid bruit, Midline deformity, Tracheal deviation, Thyromegaly Cardiac: Present: Reg Rate and Rhythm, Normal S1 and S2, No Murmur. Absent: Irregular Rhythm Lungs: Present: Normal Breath Sounds, No Wheeze, Rales, Rhonchi, Other (Normal contour to clavicular and shoulder and posterior neck anatomy.) Neuro: Present: Alert and responsive, No focal deficits noted, Cranial nerves grossly intact, Motor nerves grossly intact Abdomen: Present: Other (Obese abdomen) Vascular: Present: Normal capillary refill, Pulse, normal (2+ and symmetrical upper extremity pulses), Other (The patient demonstrates no distended left upper extremity superficial veins. There are no findings of left upper extremity ecchymosis or petechiae.). Absent: Clubbing, Cyanosis, Edema, Surgical incisions Skin: Present: No rashes noted on visualized skin. Absent: Wound/ulcer(s) Musculoskeletal: Present: No Chest Wall Tenderness Consult Discharge Plan - Plan Referrals: NONE,PCP [Non-Partnered Physician] -
[2017-01-29] MEDS: *HR* HYDROmorphone (PF) 1 MG/ML SYRINGE IVP PRN ×8 (00:36→20:45)
[2017-01-29 01:20] LABS: Basophils % 0.6 %; Eosinophils # 0.1 K/mcL (0.0-0.6); Eosinophils % 2.4 %; Hematocrit 41.4 % (37.5-50.1); Hemoglobin 13.9 g/dL (12.9-16.9); Immature Granulocytes % 0.6 % (0-4); Lymphocytes % 39.7 %; Mean Corpuscular HGB Conc 33.6 g/dL (31.6-35.5); Mean Corpuscular Hemoglobin 29.3 pg (28.0-33.3); Mean Corpuscular Volume 87.3 fL (83.0-100.0); Mean Platelet Volume 10.3 fL (9.4-12.4); Monocytes # 0.3 K/mcL (0.0-1.3); Monocytes % 6.5 %; Neutrophils # 2.5 K/mcL (1.6-8.9); Platelet Count 164 K/mcL (140-400); Red Blood Count 4.74 M/mcL (4.19-5.50); Red Cell Distribution Width 12.2 % (11.5-14.5); Segmented Neutrophils % 50.2 %
[2017-01-29] MEDS: *HR* HYDROcodone/Acet 5/325 mg TABLET PO PRN ×4 (06:53→23:27)
[2017-01-29] MEDS: amLODIPine 5 MG TABLET PO SCH (08:05)
[2017-01-29] MEDS: Insulin LISPRO 300 UNITS/3 ML VIAL SQ SCH ×4 (08:06→20:33)
--- NOTE | 2017-01-29 10:46 | Oncology Inp Progress Note ---
Date of Encounter: 01/29/17 Time of Encounter: 10:43 (1) Deep venous thrombosis of upper extremity Current Visit: Yes Status: Acute Assessment and plan: - I appreciate vascular input. No indication for chemical or mechanical thrombolysis. Management: full anticoagulation. Duration: at least 3 months. Will need to follow up with hematology as outpatient. Please set up appointment in 6-8 weeks to discuss results of hypercoagulable work up and further recommendations. - Start apixaban 5 mg PO BID 30-60 minutes after heparin drip has been discontinued. Probably would be convenient for him to transition late in the afternoon ( around 6 PM) in view of the BID schedule. From the hematology point of view he can be discharged home. Qualifiers: Affected thrombotic vein of extremity: brachial Chronicity: acute Laterality: left Qualified Code(s): I82.622 - Acute embolism and thrombosis of deep veins of left upper extremity Oncology: Subj Interval history: Chief complaint: left arm pain. Reports persistent left arm pain, from the forearm to the left shoulder, worse with active and passive ROM. feels that his pain is now down to 3-4 after receiving IV dilaudid and po norco ( previously 7-8 out of 10). He was aware of the recommendations from vascular against thrombolysis or other invasive procedures. he is tolerating anticoagulation well. denies bleeding events. no clinical findings suggestive of arterial thrombosis. REview of system negative for bleeding, chest pain, shortness of breath. Positive for persistent left arm pain. - Constitutional Vitals: Vital Signs Temp Pulse Resp BP Pulse Ox 01/29/17 07:30 93 01/29/17 07:20 98.2 F 90 16 127/84 93 01/29/17 03:39 97.8 F 87 16 108/73 96 01/29/17 00:06 98.0 F 102 16 102/64 96 01/28/17 19:14 98.3 F 98 16 149/101 95 01/28/17 15:04 97.4 F L 95 16 150/105 95 01/28/17 11:22 97.7 F 97 18 138/91 96 Intake and Output 01/28/17 01/29/17 01/29/17 23:59 07:59 15:59 Intake Total 446.4 / 446.4 349 / 349 Balance 446.4 / 446.4 349 / 349 Intake: IV Fluids 446.4 / 446.4 349 / 349 Heparin 25,000 UNIT/500 446.4 / 446.4 349 / 349 ML D5W 25,000 unit In 500 ml @ 14 UNIT/KG/HR 24. 131 mls/hr IVC .[id number] RUSLAN Rx#:[id number] Other: Meal Breakfast Percent of Meal Consumed 100% Weight 197 kg 91.217 kg Blood Glucose* 169 170 Patient Weight 01/29/17 23:59 Weight 91.217 kg - Extremities Exam Additional comments: left arm pain with palpation at the level of forearm, arm and left shoulder. pain s worse with active and passive ROM. Radial pulse present, normal. normal distal capillary refill. no skin coloration changes. Swelling seems to have resolved or probably only minimal. Alert and oriented x 3. pleasant. CVS s1s2 RRR . no MGR Lungs CTA BL Oncology: Obj Data - Labs CBC & Chem 7: 01/29/17 00:55 01/28/17 04:56 Labs: Laboratory Results - last 24 hr 01/28/17 01/28/17 01/28/17 10:06 16:43 17:25 WBC RBC Hgb Hct MCV MCH MCHC RDW Plt Count MPV Immature Gran % Seg Neutrophils % Lymphocytes % Monocytes % Eosinophils % Basophils % Neutrophils # Lymphocytes # Monocytes # Eosinophils # Basophils # APTT 43.2 H Plt Func Collagen/Epi 116 Plt Func Collagen/ADP 71 POC Glucose 234 H Est Mean Plasma Glucose Hemoglobin A1c TSH 01/28/17 01/29/17 01/29/17 21:17 00:55 00:55 WBC 4.9 RBC 4.74 Hgb 13.9 Hct 41.4 MCV 87.3 MCH 29.3 MCHC 33.6 RDW 12.2 Plt Count 164 MPV 10.3 Immature Gran % 0.6 Seg Neutrophils % 50.2 Lymphocytes % 39.7 Monocytes % 6.5 Eosinophils % 2.4 Basophils % 0.6 Neutrophils # 2.5 Lymphocytes # 2.0 Monocytes # 0.3 Eosinophils # 0.1 Basophils # 0.0 APTT Plt Func Collagen/Epi Plt Func Collagen/ADP POC Glucose 169 H Est Mean Plasma Glucose 183 Hemoglobin A1c 8.0 H TSH 01/29/17 01/29/17 01/29/17 00:55 00:55 07:09 WBC RBC Hgb Hct MCV MCH MCHC RDW Plt Count MPV Immature Gran % Seg Neutrophils % Lymphocytes % Monocytes % Eosinophils % Basophils % Neutrophils # Lymphocytes # Monocytes # Eosinophils # Basophils # APTT 88.2 H D 74.4 H Plt Func Collagen/Epi Plt Func Collagen/ADP POC Glucose Est Mean Plasma Glucose Hemoglobin A1c TSH 1.940 - ABG Interpretation ABG results: PT/INR, D-dimer PT 10.5 Seconds (9.4-12.1) 01/27/17 20:27 D-Dimer 826 ng/mLFEU (0-500) H 01/27/17 20:27 Consult Discharge Plan - Plan Referrals: NONE,PCP [Non-Partnered Physician] -
--- NOTE | 2017-01-29 10:50 | Discharge Summary ---
Date of Encounter: 01/29/17 Time of Encounter: 10:48 - Discharge Diagnosis (1) Deep venous thrombosis of upper extremity Priority: Primary Status: Acute Qualifiers: Affected thrombotic vein of extremity: brachial Chronicity: acute Laterality: left Qualified Code(s): I82.622 - Acute embolism and thrombosis of deep veins of left upper extremity (2) Dyslipidemia associated with type 2 diabetes mellitus Priority: Secondary Status: Acute (3) Hypomagnesemia Priority: Secondary Status: Acute (4) ALIREZA (acute kidney injury) Priority: Secondary Status: Acute (5) Diabetes Priority: Secondary Status: Chronic Qualifiers: Diabetes mellitus type: type 2 Diabetes mellitus complication status: without complication Diabetes mellitus terminal press operator insulin use: without terminal press operator use Qualified Code(s): E11.9 - Type 2 diabetes mellitus without complications (6) Hypertension Priority: Secondary Status: Chronic Qualifiers: Hypertension type: essential hypertension Qualified Code(s): I10 - Essential (primary) hypertension - Discharge Medications Prescriptions: HYDROcodone/Acet 5/325 mg [[place] 5-325 mg] 1 tab PO Q6HR PRN #15 tab PRN Reason: Moderate Pain Apixaban [Eliquis] 5 mg PO BID #60 tablet Atorvastatin [Lipitor] 20 mg PO HS #30 tab Home Medications: metFORMIN [Glucophage] 1,000 mg PO BID 10/06/15 [History] Amitriptyline [Elavil] 10 mg PO HS 01/27/17 [History] Lisinopril/Hydrochlorothiazide [Zestoretic 20-12.5 mg Tablet] 1 each PO QAM 09/10 [History] Meloxicam 7.5 mg PO DAILY 01/27/17 [History] Metoprolol Succinate 100 mg PO QPM 01/27/17 [History] amLODIPine [Norvasc] 5 mg PO DAILY 01/27/17 [History] Acetaminophen [Tylenol] 650 mg PO Q6HR PRN tab 01/29/17 [Rx] Apixaban [Eliquis] 5 mg PO BID #60 tablet 01/29/17 [Rx] Atorvastatin [Lipitor] 20 mg PO HS #30 tab 01/29/17 [Rx] HYDROcodone/Acet 5/325 mg [[place] 5-325 mg] 1 tab PO Q6HR PRN #15 tab 01/29/17 [ Rx] Allergies/Adverse Reactions: Allergies gabapentin Adverse Reaction (Verified 01/27/17 19:56) Gastrointestinal Upset Date of admission: 01/27/17 20:34 Primary care physician: Vince George, Consults: 01/27/17 21:33 Consult to Oncology [CONS] Routine Consulting Provider: [facility] Reason for Consult: unprovoked DVT-L arm Time Notified: 21:34 Call Completed: No 01/28/17 09:36 Consult to Vascular Surgery [CONS] Routine Consulting Provider: Vascular Surgery [facility] Reason for Consult: Left brachial thrombo-lysis Time Notified: 09:37 Call Completed: No Discharging clinician: Rigo Smith Anticipated date of discharge: 01/29/17 - Patient Status Disposition: Home, Self-Care Condition: Fair Functional capacity at discharge: independent ambulation Overall status at discharge: patient is progressing back to baseline - Discharge Instructions Follow Up With: NONE,PCP [Non-Partnered Physician] - - Diet and Activity Activity: resume usual activities as tolerated Diet: advance to your usual diet Hospital course: Mr. Kale Knight is a 51-year-old male past medical history significant for diabetes, hypertension and dyslipidemia. His presented with Unprovoked left brachial vein DVT and while Coagulation workup is pending he Was put on IV heparin. Oncology was consulted by admitting team. The hematology agrees he can be started on longer lasting form of anticoagulation. His cholesterol and triglycerides are noted quite elevated and I have some doubts that probably his diabetes is not very well controlled with just the Glucophage either. I will start him on Lipitor considering the multiple risk factor . His renal function were abnormal initially but resolved spontaneously with IV hydration. Magnesium is noted low and supplemented. Vascular surgery was consulted and Dr. Lizarraga saw the patient who does not feel that he needs any more invasive procedure like, lysis of embolectomy. Patient is planned to be discharged on Eliis. Patient will follow with Hematology as outpatient as several of blood test results are still pending. - Time Spent with Patient Total time spent providing and/or coordinating discharge services: Greater than 30 minutes - Constitutional Vitals: Temp Pulse Resp BP Pulse Ox 98.2 F 90 16 127/84 93 01/29/17 07:20 01/29/17 07:20 01/29/17 07:20 01/29/17 07:20 01/29/17 07:30 General appearance: Present: A&O X 3, answers questions appropriately - Head Head exam: Present: atraumatic, normocephalic - Eye Eye exam: Present: PERRL, conjuntiva pink, sclera anicteric Pupils: Present: PERRL - Neck Neck exam general surgery: Present: supple, trachea midline. Absent: lymphadenopathy - Respiratory Respiratory exam: Present: CTAB. Absent: accessory muscle use, rales, rhonchi, wheezes - Cardiovascular Cardiovascular exam: Present: RRR, +S1, +S2. Absent: diastolic murmur, gallop, rubs, systolic murmur - GI/Abdominal GI/Abdominal exam: Present: normal bowel sounds, soft, no peritoneal signs. Absent: distended, tenderness - Extremities Exam Extremities exam: Present: warm, radial pulses palpable and symetrical. Absent : calf tenderness, cyanotic, pedal edema - Neurological Exam Neurological exam: Present: CN II-XII intact, oriented X3, no focal deficits. Absent: pronater drift, facial droop, speech deficit - Skin Skin exam: Present: dry, intact - VTE Documentation of Mechanical Device: Graduated compression elastic hosiery
[2017-01-29] MEDS: Ondansetron 4 MG/2 ML VIAL IVP PRN (11:06)
[2017-01-29] MEDS: Heparin 25,000 UNIT/500 ML D5W 25,000 UNIT/500 ML MLS IVC SCH (12:03)
[2017-01-29] MEDS: Metoprolol XL (24 HR) Succ 50 MG TAB.ER.24H PO SCH (17:31)
[2017-01-29] MEDS: APIXABAN 5 MG TABLET PO SCH (19:44)
[2017-01-30] MEDS ORDERED: *HR* Enoxaparin 100 MG/ML SYRINGE SQ ONE (00:43)
[2017-01-30] MEDS: *HR* HYDROmorphone (PF) 1 MG/ML SYRINGE IVP PRN ×8 (00:51→22:55)
[2017-01-30 03:53] LABS: Basophils % 0.7 %; Eosinophils # 0.1 K/mcL (0.0-0.6); Eosinophils % 1.8 %; Hematocrit 45.1 % (37.5-50.1); Hemoglobin 14.8 g/dL (12.9-16.9); Immature Granulocytes % 0.4 % (0-4); Lymphocytes # 2.1 K/mcL (0.6-4.6); Lymphocytes % 37.8 %; Mean Corpuscular HGB Conc 32.8 g/dL (31.6-35.5); Mean Corpuscular Hemoglobin 28.8 pg (28.0-33.3); Mean Corpuscular Volume 87.7 fL (83.0-100.0); Mean Platelet Volume 9.8 fL (9.4-12.4); Monocytes # 0.5 K/mcL (0.0-1.3); Monocytes % 8.7 %; Neutrophils # 2.7 K/mcL (1.6-8.9); Platelet Count 185 K/mcL (140-400); Red Blood Count 5.14 M/mcL (4.19-5.50); Red Cell Distribution Width 12.1 % (11.5-14.5); Segmented Neutrophils % 50.6 %
[2017-01-30] MEDS: Insulin LISPRO 300 UNITS/3 ML VIAL SQ SCH ×4 (08:44→20:37)
[2017-01-30] MEDS: amLODIPine 5 MG TABLET PO SCH (08:45)
[2017-01-30] MEDS: *HR* HYDROcodone/Acet 5/325 mg TABLET PO PRN ×3 (08:45→21:58)
[2017-01-30] MEDS: APIXABAN 5 MG TABLET PO SCH ×2 (08:45→20:20)
--- NOTE | 2017-01-30 10:34 | Oncology Inp Progress Note ---
Date of Encounter: 01/30/17 Time of Encounter: 10:32 (1) Deep venous thrombosis of upper extremity Current Visit: Yes Status: Acute Assessment and plan: - Clinically improving. Transitioned to apixaban 5 mg PO BID yesterday PM, well tolerated. There are not bleeding events. - Discharge home on apixaban 5 mg BID. Duration of anticoagulation: at least 3 months, but may need senior care anticoagulation depending of the results of hypercoagulable work up ( still pending). - Please set up an outpatient hematology appointment in 6-8 weeks to discuss results of hypercoagulable work up and further recommendations. Qualifiers: Affected thrombotic vein of extremity: brachial Chronicity: acute Laterality: left Qualified Code(s): I82.622 - Acute embolism and thrombosis of deep veins of left upper extremity Oncology: Subj Interval history: CC: left arm pain - Reports that left arm pain has improved, although still persistent. Denies coloration changes or acute pain in left arm. tolerating meals. denies bleeding events. - Constitutional Vitals: Vital Signs Pulse Ox 01/30/17 09:12 94 Intake and Output 01/29/17 01/30/17 01/30/17 23:59 07:59 15:59 Other: Weight 91.127 kg Blood Glucose* 154 Patient Weight 01/30/17 23:59 Weight 91.127 kg - Respiratory Respiratory exam: Present: CTAB - Cardiovascular Cardiovascular exam: Present: RRR - GI/Abdominal GI/Abdominal exam: Present: normal bowel sounds - Extremities Exam Additional comments: left arm: radial pulse present, normal. normal capilary refill. no skin coloration changes. normal ROM of left upper extremity. - Skin Skin exam: Present: normal color Oncology: Obj Data - Labs CBC & Chem 7: 01/30/17 03:28 01/28/17 04:56 - ABG Interpretation ABG results: PT/INR, D-dimer PT 10.5 Seconds (9.4-12.1) 01/27/17 20:27 D-Dimer 826 ng/mLFEU (0-500) H 01/27/17 20:27 Consult Discharge Plan - Plan Referrals: NONE,PCP [Non-Partnered Physician] -
[2017-01-30] MEDS: Ondansetron 4 MG/2 ML VIAL IVP PRN ×2 (10:53→20:20)
--- NOTE | 2017-01-30 14:48 | Internal Med Progress Note ---
Date of Encounter: 01/30/17 Time of Encounter: 14:46 - Assessment and plan (1) Deep venous thrombosis of upper extremity Current Visit: Yes Status: Acute Qualifiers: Affected thrombotic vein of extremity: brachial Chronicity: acute Laterality: left Qualified Code(s): I82.622 - Acute embolism and thrombosis of deep veins of left upper extremity (2) Dyslipidemia associated with type 2 diabetes mellitus Current Visit: Yes Status: Acute (3) Hypomagnesemia Current Visit: Yes Status: Acute (4) ALIREZA (acute kidney injury) Current Visit: Yes Status: Acute (5) Diabetes Current Visit: Yes Status: Chronic Qualifiers: Diabetes mellitus type: type 2 Diabetes mellitus complication status: without complication Diabetes mellitus care home insulin use: without care home use Qualified Code(s): E11.9 - Type 2 diabetes mellitus without complications (6) Hypertension Current Visit: Yes Status: Chronic Qualifiers: Hypertension type: essential hypertension Qualified Code(s): I10 - Essential (primary) hypertension - Subjective Interval history: Mr. Kale Knight is a 51-year-old male past medical history significant for diabetes, hypertension and dyslipidemia. His presented with left brachial vein DVT and while correlation workup is pending he is on IV heparin. Oncology is consulted by admitting team. This hematology agrees he can be started on longer lasting form of anticoagulation. His cholesterol and triglycerides are noted quite elevated and I have some doubts that probably his diabetes is not very well controlled with just the Glucophage either. I will start him on Lipitor considering the multiple risk factor but also add hemoglobin A1c. His renal function were normal initially but resolved spontaneously with IV hydration. Magnesium is noted low and will be supplemented. Accu-Chek 4 times a day with sliding scale coverage for diabetes and daily blood pressure monitoring. Discussed with hematology who recommended some bone lysis. In interventional radiology contacted who referred us to vascular surgery. Discussed the case with vascular surgery who will see the patient however not in favor of embolectomy or thrombus lysis. Patient is complaining of sore excruciating pain. I examined his left arm and brachial vein area was seems quite unremarkable without any superficial erythema or swelling which could indicate underlying thrombophlebitis. Good radial pulse. Discussed with nurse and for now I think combination of her [place] and breakthrough low-dose Dilaudid is adequate we may give her Dilaudid at every 2 intervals if it is really necessary during the night however keep the dose around 0.5. Patient is planned to be discharged tomorrow on oral anticoagulation if vascular surgery agrees. Awaiting for Ginny to be approved by insurance company after which he can be discharged - Constitutional Vitals: Temp Pulse Resp BP Pulse Ox 98.7 F 104 18 159/104 90 01/30/17 11:36 01/30/17 11:36 01/30/17 11:36 01/30/17 11:46 01/30/17 11:36 General appearance: Present: A&O X 3, answers questions appropriately - Head Head exam: Present: atraumatic, normocephalic - Eye Eye exam: Present: PERRL, conjuntiva pink, sclera anicteric Pupils: Present: PERRL - Neck Neck exam general surgery: Present: supple, trachea midline. Absent: lymphadenopathy - Respiratory Respiratory exam: Present: CTAB. Absent: accessory muscle use, rales, rhonchi, wheezes - Cardiovascular Cardiovascular exam: Present: RRR, +S1, +S2. Absent: diastolic murmur, gallop, rubs, systolic murmur - GI/Abdominal GI/Abdominal exam: Present: normal bowel sounds, soft, no peritoneal signs. Absent: distended, tenderness - Extremities Exam Extremities exam: Present: warm, radial pulses palpable and symetrical. Absent : calf tenderness, cyanotic, pedal edema - Neurological Exam Neurological exam: Present: CN II-XII intact, oriented X3, no focal deficits. Absent: pronater drift, facial droop, speech deficit - Skin Skin exam: Present: dry, intact Internal Medicine: Result - Labs CBC & Chem 7: 01/30/17 03:28 01/28/17 04:56 - ABG Interpretation ABG results: PT/INR, D-dimer PT 10.5 Seconds (9.4-12.1) 01/27/17 20:27 D-Dimer 826 ng/mLFEU (0-500) H 01/27/17 20:27 - VTE Documentation of Mechanical Device: Graduated compression elastic hosiery Consult Discharge Plan - Plan Referrals: NONE,PCP [Non-Partnered Physician] -
[2017-01-30] MEDS: Metoprolol XL (24 HR) Succ 50 MG TAB.ER.24H PO SCH (17:12)
[2017-01-30 18:09] LABS: APTT (LE Anticoag) 34 sec (32-48); Diluted Russell Viper Venom 37 sec (33-44); PT (LE-Anticoag) 12.3 sec (12.0-15.5)
[2017-01-31] MEDS: *HR* HYDROmorphone (PF) 1 MG/ML SYRINGE IVP PRN (02:16)
[2017-01-31 04:57] LABS: Basophils % 0.8 %; Eosinophils # 0.1 K/mcL (0.0-0.6); Eosinophils % 2.1 %; Hematocrit 44.3 % (37.5-50.1); Hemoglobin 15.2 g/dL (12.9-16.9); Immature Granulocytes % 0.4 % (0-4); Lymphocytes # 1.6 K/mcL (0.6-4.6); Lymphocytes % 29.9 %; Mean Corpuscular HGB Conc 34.3 g/dL (31.6-35.5); Mean Corpuscular Hemoglobin 29.5 pg (28.0-33.3); Mean Platelet Volume 9.8 fL (9.4-12.4); Monocytes # 0.4 K/mcL (0.0-1.3); Monocytes % 7.9 %; Neutrophils # 3.1 K/mcL (1.6-8.9); Platelet Count 168 K/mcL (140-400); Red Blood Count 5.15 M/mcL (4.19-5.50); Segmented Neutrophils % 58.9 %
[2017-01-31] MEDS: *HR* HYDROcodone/Acet 5/325 mg TABLET PO PRN (05:19)
[2017-01-31 07:35] LABS: Homocysteine 12 umol/L (<=10)
[2017-01-31 07:53] LABS: Protein S Antigen, Total 190 % (84-134); Protein S, Functional 137 % (66-143)
[2017-01-31 08:09] VITALS: BP 105/71
--- NOTE | 2017-01-31 08:33 | Internal Med Progress Note ---
Date of Encounter: 01/31/17 Time of Encounter: 08:32 - Assessment and plan (1) Deep venous thrombosis of upper extremity Current Visit: Yes Status: Acute Qualifiers: Affected thrombotic vein of extremity: brachial Chronicity: acute Laterality: left Qualified Code(s): I82.622 - Acute embolism and thrombosis of deep veins of left upper extremity (2) Dyslipidemia associated with type 2 diabetes mellitus Current Visit: Yes Status: Acute (3) Hypomagnesemia Current Visit: Yes Status: Acute (4) ALIREZA (acute kidney injury) Current Visit: Yes Status: Acute (5) Diabetes Current Visit: Yes Status: Chronic Qualifiers: Diabetes mellitus type: type 2 Diabetes mellitus complication status: without complication Diabetes mellitus half-way insulin use: without half-way use Qualified Code(s): E11.9 - Type 2 diabetes mellitus without complications (6) Hypertension Current Visit: Yes Status: Chronic Qualifiers: Hypertension type: essential hypertension Qualified Code(s): I10 - Essential (primary) hypertension - Subjective Interval history: Mr. Kale Knight is a 51-year-old male past medical history significant for diabetes, hypertension and dyslipidemia. His presented with left brachial vein DVT and while correlation workup is pending he is on IV heparin. Oncology is consulted by admitting team. This hematology agrees he can be started on longer lasting form of anticoagulation. His cholesterol and triglycerides are noted quite elevated and I have some doubts that probably his diabetes is not very well controlled with just the Glucophage either. I will start him on Lipitor considering the multiple risk factor but also add hemoglobin A1c. His renal function were normal initially but resolved spontaneously with IV hydration. Magnesium is noted low and will be supplemented. Accu-Chek 4 times a day with sliding scale coverage for diabetes and daily blood pressure monitoring. Discussed with hematology who recommended some bone lysis. In interventional radiology contacted who referred us to vascular surgery. Discussed the case with vascular surgery who will see the patient however not in favor of embolectomy or thrombus lysis. Patient is complaining of sore excruciating pain. I examined his left arm and brachial vein area was seems quite unremarkable without any superficial erythema or swelling which could indicate underlying thrombophlebitis. Good radial pulse. Discussed with nurse and for now I think combination of her [place] and breakthrough low-dose Dilaudid is adequate we may give her Dilaudid at every 2 intervals if it is really necessary during the night however keep the dose around 0.5. Patient is planned to be discharged tomorrow on oral anticoagulation if vascular surgery agrees. Awaiting for Ginny to be approved by insurance company after which he can be discharged - Constitutional Vitals: Temp Pulse Resp BP Pulse Ox 98.1 F 97 17 105/71 90 01/31/17 08:03 01/31/17 08:03 01/31/17 08:03 01/31/17 08:03 01/31/17 08:03 General appearance: Present: A&O X 3, answers questions appropriately - Head Head exam: Present: atraumatic, normocephalic - Eye Eye exam: Present: PERRL, conjuntiva pink, sclera anicteric Pupils: Present: PERRL - Neck Neck exam general surgery: Present: supple, trachea midline. Absent: lymphadenopathy - Respiratory Respiratory exam: Present: CTAB. Absent: accessory muscle use, rales, rhonchi, wheezes - Cardiovascular Cardiovascular exam: Present: RRR, +S1, +S2. Absent: diastolic murmur, gallop, rubs, systolic murmur - GI/Abdominal GI/Abdominal exam: Present: normal bowel sounds, soft, no peritoneal signs. Absent: distended, tenderness - Extremities Exam Extremities exam: Present: warm, radial pulses palpable and symetrical. Absent : calf tenderness, cyanotic, pedal edema - Neurological Exam Neurological exam: Present: CN II-XII intact, oriented X3, no focal deficits. Absent: pronater drift, facial droop, speech deficit - Skin Skin exam: Present: dry, intact Internal Medicine: Result - Labs CBC & Chem 7: 01/31/17 04:37 01/28/17 04:56 Labs: Short CBC 01/31/17 Range/Units 04:37 WBC 5.2 (4.3-11.1) K/mcL Hgb 15.2 (12.9-16.9) g/dL Hct 44.3 (37.5-50.1) % Plt Count 168 (140-400) K/mcL Neutrophils # 3.1 (1.6-8.9) K/mcL - ABG Interpretation ABG results: PT/INR, D-dimer PT 10.5 Seconds (9.4-12.1) 01/27/17 20:27 D-Dimer 826 ng/mLFEU (0-500) H 01/27/17 20:27 - VTE Documentation of Mechanical Device: Graduated compression elastic hosiery Consult Discharge Plan - Plan Referrals: NONE,PCP [Non-Partnered Physician] -
[2017-01-31] MEDS: amLODIPine 5 MG TABLET PO SCH (10:06)
[2017-01-31] MEDS: APIXABAN 5 MG TABLET PO SCH (10:06)
[2017-01-31] MEDS: Insulin LISPRO 300 UNITS/3 ML VIAL SQ SCH (10:07)
[2017-01-31 20:20] LABS: FACV Specimen WHOLE BLOOD
[2017-02-01 07:11] LABS: Antithrombin III, Activity 118 % (76-128)
[2017-02-01 07:12] LABS: Fac V Leiden R506Q Mut Result HETEROZYGOUS; Protein C, Functional >250 % (83-168)
[2017-02-01 19:19] LABS: Prothrombin G20210A Specimen WHOLE BLOOD
[2017-02-02 08:30] LABS: Prothrombin G20210A Mut Result NEGATIVE
== END 2017-01-31 12:31 | disposition home or self-care (01) | DRG 300 ==
LOC: EMEROO 14:23 → 3NENU 14:23 → 3BNU 01-28 17:14
PROVIDERS: ADMIT Hospitalist; ATTEND Family Medicine

== ENCOUNTER 2017-04-26 09:05 | Observation (INO) ==
[2017-04-26 09:44] LABS: Basophils % 0.5 %; Eosinophils # 0.2 K/mcL (0.0-0.6); Eosinophils % 2.5 %; Hematocrit 41.2 % (37.5-50.1); Immature Granulocytes % 0.3 % (0-4); Lymphocytes # 1.6 K/mcL (0.6-4.6); Lymphocytes % 25.6 %; Mean Corpuscular Hemoglobin 29.6 pg (28.0-33.3); Mean Corpuscular Volume 87.1 fL (83.0-100.0); Mean Platelet Volume 9.6 fL (9.4-12.4); Monocytes # 0.5 K/mcL (0.0-1.3); Monocytes % 7.6 %; Platelet Count 195 K/mcL (140-400); Red Blood Count 4.73 M/mcL (4.19-5.50); Red Cell Distribution Width 12.8 % (11.5-14.5); Segmented Neutrophils % 63.5 %
[2017-04-26] MEDS ORDERED: *HR* Morphine 2 MG/ML SYRINGE IVP ONE (09:44)
[2017-04-26] MEDS ORDERED: Ondansetron 4 MG/2 ML VIAL IVP ONE ×2 (09:44→13:45)
[2017-04-26] MEDS ORDERED: 0.9 % Sodium Chloride 1,000 ML IVC ONE (09:45)
[2017-04-26 09:47] LABS: Prothrombin Time 10.4 Seconds (9.4-12.1)
[2017-04-26 09:50] LABS: Activated Partial Thrombo Time 28.2 Seconds (26.0-36.0)
--- NOTE | 2017-04-26 09:50 | Emergency Department Note ---
Disposition Clinical Impression: Hemoptysis GI bleed Qualifiers: GI bleed type/associated pathology: unspecified gastrointestinal hemorrhage type Qualified Code(s): K92.2 - Gastrointestinal hemorrhage, unspecified Chest pain Qualifiers: Chest pain type: unspecified Qualified Code(s): R07.9 - Chest pain, unspecified Disposition: Admitted As Inpatient Condition: Fair Referrals: Thomas Garcia MD [Primary Care Provider] - Forms: ED Satisfaction Letter Time of Disposition: 12:06 GI Bleed HPI - General Chief complaint: ED GI Bleed Stated complaint: bloody stool Time Seen by Provider: 04/26/17 09:12 Source: patient Limitations: no limitations Nursing Notes Reviewed: Yes Vital Signs Reviewed: Yes - History of Present Illness HPI Narrative: Nontoxic-appearing 51-year-old male presents for an initial complaint of gross bloody stools. He states that his first passage of dark bloody stools occurred yesterday evening. He has had 2 additional bloody stools since then, however states that the amount has improved since the initial episode. He states that this is accompanied with some suprapubic to umbilical abdominal pain. He states that this is a sharp pain in nature and denies any aggravating factors. He states that this abdominal pain is somewhat relieved with the passage of a bowel movement. He also complains of difficulty urinating. Upon further questioning, the patient admits to an approximately 1 week history of intermittent left-sided chest pain that radiates into his left neck and left upper extremity. He denies any pleuritic component to this chest pain however admits to multiple episodes of hemoptysis, with "coughing up clots" over the past several days. He denies any fevers, chills, vomiting, diarrhea, or constipation. He states that his bowel movements are loose but will not describe them as diarrhea. He was recently discontinued from Eliquis for treatment for a left upper extremity DVT. 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 He does have an IVC filter in place. He admits that he has had several episodes of bloody stools over the past 2 years however has not had a formal evaluation. Pt Subjective Complaint: gross bloody stools, other (Delfin pain) Onset (ago): day(s) (Since yesterday evening) Number of episodes: 3 Consistency: Improving Severity: moderate Improves with: bowel movement Worsens with: nothing Context: anticoagulant use Associated symptoms: Reports: abdominal pain, nausea, shortness of breath, other (Chest pain, hemoptysis) Treatments Prior to Arrival: none - Related Data Home Medications Medication Instructions Recorded Confirmed metFORMIN [Glucophage] 1,000 mg PO BID 10/06/15 02/22/17 Amitriptyline [Elavil] 10 mg PO HS 01/27/17 02/22/17 Metoprolol Succinate 100 mg PO QPM 01/27/17 02/22/17 amLODIPine [Norvasc] 5 mg PO DAILY 01/27/17 02/22/17 Gabapentin [Neurontin] 400 mg PO TID 02/22/17 02/22/17 Losartan/HCTZ [Hyzaar 50-12.5 1 each PO DAILY 02/22/17 02/22/17 Tablet] Previous Rx's Medication Instructions Recorded Acetaminophen [Tylenol] 650 mg PO Q6HR PRN tab 01/29/17 Apixaban [Eliquis] 5 mg PO BID #60 tablet 01/29/17 Atorvastatin [Lipitor] 20 mg PO HS #30 tab 01/29/17 HYDROcodone/Acet 5/325 mg [[place] 1 tab PO Q6HR PRN #15 tab 01/29/17 5-325 mg] Allergies Allergy/AdvReac Type Severity Reaction Status Date / Time wasp vemon AdvReac See Uncoded 03/14/17 17:13 Comments All systems ED: reviewed and negative except as stated. Constitutional: Denies: fever, chills, weakness, weight change Eyes: Denies: eye pain, eye discharge, vision change ENT ED: Denies: ear pain, throat pain, dental pain, hearing loss, epistaxis, congestion, dysphagia Cardiovascular: Reports: as per HPI, chest pain. Denies: palpitations, dyspnea on exertion, edema, syncope Respiratory: Reports: as per HPI, cough, dyspnea, hemoptysis. Denies: wheezes, stridor Gastrointestinal: Reports: as per HPI, abdominal pain, nausea, other ("dark bloody stools"). Denies: vomiting, diarrhea, constipation, hematemesis, melena , hematochezia Genitourinary: Denies: urgency, dysuria, frequency, hematuria Musculoskeletal: Denies: back pain, neck pain, arthralgia, myalgia Integumentary: Denies: rash, abrasion, lesions Neurological: Denies: headache, weakness, numbness, paresthesias, confusion, abnormal gait, vertigo Psychiatric: Denies: anxiety, depression, suicidal thoughts, homicidal thoughts , auditory hallucinations, visual hallucinations Endocrine: Denies: fatigue Hematological/Lymphatic: Denies: easy bleeding, easy bruising Allergic/Immunologic: Denies: facial swelling, urticaria Past Medical History - Past Medical History Attestation: Yes The following information was validated with the patient. Source: patient, nursing notes reviewed Medical history: Reports: DVT, diabetes, hypertension, kidney stones, other Surgical history: Reports: herniorrhaphy, IVC Filter ([address] Millard), vasectomy, other Psychiatric history: Reports: no psych history - Social History Smoking Status: Never smoker Smokeless Tobacco Status: No Alcohol use: Reports: none Drug use: Reports: none Physical Exam - General Limitations: no limitations General appearance: alert, in no apparent distress - Head Head exam: atraumatic, normocephalic, normal inspection - Eye Eye exam: Present: normal appearance, PERRL, EOMI. Absent: nystagmus - ENT ENT exam: mucous membranes moist - Neck Neck exam: Present: normal inspection, full ROM, trachea midline - Chest Chest inspection: Present: normal inspection, symmetric chest wall rise - Respiratory Respiratory exam: Present: wheezes (Faint expiratory wheezes noted bilaterally) . Absent: respiratory distress, stridor, accessory muscle use, prolonged expiratory phase - Cardiovascular Cardiovascular exam: Present: regular rate, normal rhythm, normal heart sounds - Abdominal Exam Abdominal exam: Present: soft, tenderness, normal bowel sounds. 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 Absent: fecal impaction, hemorrhoids, tenderness - Extremities Exam Extremities exam: Present: normal inspection, full ROM. Absent: tenderness, pedal edema - Neurological Exam Neurological exam: Present: alert, oriented X3 - Psychiatric Psychiatric exam: Present: normal affect, normal mood - Skin Skin exam: Present: warm, dry, intact, normal color Course Course Narrative: I have discussed this patient's case with Dr. Adolfo Marcano. Dr. Marcano has had a face- to-face evaluation with this patient and agrees with the aforementioned plan. Upon my initial examination, the patient denies any active chest pain or shortness of breath. Upon further consultation and repeat examination, the patient discloses that he is having active chest pain that he rates an 8 out of 10 on a 10 point scale. I discussed these findings with Dr. Marcano. Given that there is no CT evidence to account for the patient's rectal bleeding, in conjunction with only a very faintly positive Hemoccult test, She recommends administration of 324 mg of aspirin and a nitroglycerin trial. I have had a discussion with the patient that this chest pain warrants further investigation. He has agreed to admission to the hospital service for ACS rule out and probable gastroenterology consult. 1205: I discussed this patient's case with Dr. Marino, of the hospitalist service who has accepted the patient for admission to his service for acute coronary syndrome rule out and further evaluation of his gastrointestinal bleeding. Vital Signs Temperature 98 F 04/26/17 09:07 Pulse Rate 105 04/26/17 09:07 Respiratory Rate 18 04/26/17 09:07 Blood Pressure 138/90 04/26/17 09:07 O2 Sat by Pulse Oximetry 97 04/26/17 09:07 Temperature 98 F 04/26/17 09:07 Pulse Rate 92 04/26/17 11:27 Respiratory Rate 16 04/26/17 11:27 Blood Pressure 104/67 04/26/17 11:27 O2 Sat by Pulse Oximetry 96 04/26/17 11:27 Oxygen Delivery Oxygen Delivery Room Air GI Bleed - Medical Records Medical records reviewed: Yes I reviewed the patient's medical records. - Lab Data Lab results reviewed: Yes I reviewed the patient's lab results. Lab results narrative: Laboratory Last Values WBC 6.3 K/mcL (4.3-11.1) 04/26/17 09:35 RBC 4.73 M/mcL (4.19-5.50) 04/26/17 09:35 Hgb 14.0 g/dL (12.9-16.9) 04/26/17 09:35 Hct 41.2 % (37.5-50.1) 04/26/17 09:35 MCV 87.1 fL (83.0-100.0) 04/26/17 09:35 MCH 29.6 pg (28.0-33.3) 04/26/17 09:35 MCHC 34.0 g/dL (31.6-35.5) 04/26/17 09:35 RDW 12.8 % (11.5-14.5) 04/26/17 09:35 Plt Count 195 K/mcL (140-400) 04/26/17 09:35 MPV 9.6 fL (9.4-12.4) 04/26/17 09:35 Immature Gran % 0.3 % (0-4) 04/26/17 09:35 Seg Neutrophils % 63.5 % 04/26/17 09:35 Lymphocytes % 25.6 % 04/26/17 09:35 Monocytes % 7.6 % 04/26/17 09:35 Eosinophils % 2.5 % 04/26/17 09:35 Basophils % 0.5 % 04/26/17 09:35 Neutrophils # 4.0 K/mcL (1.6-8.9) 04/26/17 09:35 Lymphocytes # 1.6 K/mcL (0.6-4.6) 04/26/17 09:35 Monocytes # 0.5 K/mcL (0.0-1.3) 04/26/17 09:35 Eosinophils # 0.2 K/mcL (0.0-0.6) 04/26/17 09:35 Basophils # 0.0 K/mcL (0.0-0.2) 04/26/17 09:35 PT 10.4 Seconds (9.4-12.1) 04/26/17 09:35 INR 1.0 04/26/17 09:35 APTT 28.2 Seconds (26.0-36.0) 04/26/17 09:35 Sodium 140 mEq/L (136-145) 04/26/17 09:35 Potassium 4.2 mEq/L (3.5-4.5) 04/26/17 09:35 Chloride 102 mEq/L (98-109) 04/26/17 09:35 Carbon Dioxide 28 mEq/L (19-29) 04/26/17 09:35 BUN 11 mg/dL (8-26) 04/26/17 09:35 Creatinine 0.95 mg/dL (0.72-1.25) 04/26/17 09:35 Est GFR ( Amer) > 60 (> 60) 04/26/17 09:35 Est GFR (Non-Af Amer) > 60 (> 60) 04/26/17 09:35 BUN/Creatinine Ratio 12 (6-26) 04/26/17 09:35 Glucose 118 mg/dL (70-99) H 04/26/17 09:35 Calculated Osmolality 290 (280-300) 04/26/17 09:35 Lactic Acid 2.3 mmol/L (0.5-2.2) H 04/26/17 09:35 Calcium 10.2 mg/dL (8.6-10.8) 04/26/17 09:35 Total Bilirubin 0.6 mg/dL (0.2-1.2) 04/26/17 09:35 AST 26 Units/L (5-34) 04/26/17 09:35 ALT 34 Units/L (0-55) 04/26/17 09:35 Alkaline Phosphatase 61 Units/L (38-126) 04/26/17 09:35 Troponin I 0.01 ng/mL (0-0.03) 04/26/17 09:35 Serum Total Protein 8.0 g/dL (6.0-8.3) 04/26/17 09:35 Albumin 4.3 g/dL (3.5-5.0) 04/26/17 09:35 Globulin 3.7 g/dL (2.4-3.5) H 04/26/17 09:35 Albumin/Globulin Ratio 1.2 (1.1-2.2) 04/26/17 09:35 Lipase 31 Units/L (8-78) 04/26/17 09:35 Blood Type A POSITIVE 04/26/17 09:35 Antibody Screen NEGATIVE 04/26/17 09:35 Result diagrams: 04/26/17 09:35 04/26/17 09:35 Lab Results 04/26/17 04/26/17 04/26/17 Range/Units 09:35 09:35 09:35 WBC 6.3 (4.3-11.1) K/mcL RBC 4.73 (4.19-5.50) M/mcL Hgb 14.0 (12.9-16.9) g/dL Hct 41.2 (37.5-50.1) % MCV 87.1 (83.0-100.0) fL MCH 29.6 (28.0-33.3) pg MCHC 34.0 (31.6-35.5) g/dL RDW 12.8 (11.5-14.5) % Plt Count 195 (140-400) K/mcL MPV 9.6 (9.4-12.4) fL Immature Gran % 0.3 (0-4) % Seg Neutrophils % 63.5 % Lymphocytes % 25.6 % Monocytes % 7.6 % Eosinophils % 2.5 % Basophils % 0.5 % Neutrophils # 4.0 (1.6-8.9) K/mcL Lymphocytes # 1.6 (0.6-4.6) K/mcL Monocytes # 0.5 (0.0-1.3) K/mcL Eosinophils # 0.2 (0.0-0.6) K/mcL Basophils # 0.0 (0.0-0.2) K/mcL PT 10.4 (9.4-12.1) Seconds INR 1.0 APTT 28.2 (26.0-36.0) Seconds Sodium 140 (136-145) mEq/L Potassium 4.2 (3.5-4.5) mEq/L Chloride 102 (98-109) mEq/L Carbon Dioxide 28 (19-29) mEq/L BUN 11 (8-26) mg/dL Creatinine 0.95 (0.72-1.25) mg/dL Est GFR ( Amer) > 60 (> 60) Est GFR (Non-Af Amer) > 60 (> 60) BUN/Creatinine Ratio 12 (6-26) Glucose 118 H (70-99) mg/dL Calculated Osmolality 290 (280-300) Lactic Acid (0.5-2.2) mmol/L Calcium 10.2 (8.6-10.8) mg/dL Total Bilirubin 0.6 (0.2-1.2) mg/dL AST 26 (5-34) Units/L ALT 34 (0-55) Units/L Alkaline Phosphatase 61 (38-126) Units/L Troponin I (0-0.03) ng/mL Serum Total Protein 8.0 (6.0-8.3) g/dL Albumin 4.3 (3.5-5.0) g/dL Globulin 3.7 H (2.4-3.5) g/dL Albumin/Globulin Ratio 1.2 (1.1-2.2) Lipase 31 (8-78) Units/L Blood Type Antibody Screen 04/26/17 04/26/17 04/26/17 Range/Units 09:35 09:35 09:35 WBC (4.3-11.1) K/mcL RBC (4.19-5.50) M/mcL Hgb (12.9-16.9) g/dL Hct (37.5-50.1) % MCV (83.0-100.0) fL MCH (28.0-33.3) pg MCHC (31.6-35.5) g/dL RDW (11.5-14.5) % Plt Count (140-400) K/mcL MPV (9.4-12.4) fL Immature Gran % (0-4) % Seg Neutrophils % % Lymphocytes % % Monocytes % % Eosinophils % % Basophils % % Neutrophils # (1.6-8.9) K/mcL Lymphocytes # (0.6-4.6) K/mcL Monocytes # (0.0-1.3) K/mcL Eosinophils # (0.0-0.6) K/mcL Basophils # (0.0-0.2) K/mcL PT (9.4-12.1) Seconds INR APTT (26.0-36.0) Seconds Sodium (136-145) mEq/L Potassium (3.5-4.5) mEq/L Chloride (98-109) mEq/L Carbon Dioxide (19-29) mEq/L BUN (8-26) mg/dL Creatinine (0.72-1.25) mg/dL Est GFR ( Amer) (> 60) Est GFR (Non-Af Amer) (> 60) BUN/Creatinine Ratio (6-26) Glucose (70-99) mg/dL Calculated Osmolality (280-300) Lactic Acid 2.3 H (0.5-2.2) mmol/L Calcium (8.6-10.8) mg/dL Total Bilirubin (0.2-1.2) mg/dL AST (5-34) Units/L ALT (0-55) Units/L Alkaline Phosphatase (38-126) Units/L Troponin I 0.01 (0-0.03) ng/mL Serum Total Protein (6.0-8.3) g/dL Albumin (3.5-5.0) g/dL Globulin (2.4-3.5) g/dL Albumin/Globulin Ratio (1.1-2.2) Lipase (8-78) Units/L Blood Type A POSITIVE Antibody Screen NEGATIVE - Radiology Data Radiology results reviewed: Yes I reviewed the patient's radiology results. Abdomen/Pelvis CT 04/26/17 09:14 IMPRESSION: 1. No acute process demonstrated. 2. No evidence of pulmonary embolism 3. No findings to account for rectal bleeding 4. Nonobstructing bilateral nephrolithiasis 5. Stable left adrenal adenoma D/ / Levi Leal MD / Levi Leal MD Interpreting Provider: Levi Leal MD Chest CTA 04/26/17 09:14 IMPRESSION: 1. No acute process demonstrated. 2. No evidence of pulmonary embolism 3. No findings to account for rectal bleeding 4. Nonobstructing bilateral nephrolithiasis 5. Stable left adrenal adenoma D/ / Levi Leal MD / Levi Leal MD Interpreting Provider: Levi Leal MD Chest X-Ray 04/26/17 09:44 IMPRESSION: No acute cardiopulmonary process. D/ / 04/26/2017 10:32:28 Thomas Santamaria MD / Leonarda Ying Interpreting Provider: Thomas Santamaria MD - EKG Data EKG attestation: Yes I reviewed and interpreted this EKG. EKG results narrative: EKG reviewed by Dr. Adolfo Marcano as well. EKG shows a sinus tachycardia at a rate of 109 beats per minute. NV interval 150, QRS duration 85, QT/QTc intervals 299 /36 3. No ectopy noted. No STEMI. [email or web address] - Chapo Situation: Demographics, MOA Background: Presenting Complaint, Relevant PMH, Meds, & Allergies Assessment: Vital Signs, Course and respsone to treatment, Exam Concerns, Patient/Family Expectation, Pertinant Lab Results, Outstanding Labs Recommendation: Barrier(s) to disposition, Recommendation based on pending studies, treatments, or consults Chapo Report Given to: Dr. Krys Cowan Repor Time: 11:25 Attestation Statement - Attestation Attestation: For this encounter, I have reviewed the FACULTY HEAD or PA documentation, treatment plan, and medical decision making; and I have had face to face time with this patient. 51 year old male who I took report from pain management and states that the patient was scheduled for a epidural pain inection secondary to chronic cervical radiculotpahty and he has been on eliquis for an upper extremity DVT for the pat 3 month and then off of it for the past few days although on arrival he was complainig about bloody stools and hemopytosis. WE will do CTA chest and CT abdomen wiht IV contrast for evlauation and likely admit to medicine for GI bleed if ther are unstable labs, otherwise may be able to do outpatient colonoscpy if H/H is stable.
[2017-04-26 10:00] LABS: Alanine Aminotransferase 34 Units/L (0-55); Albumin 4.3 g/dL (3.5-5.0); Albumin/Globulin Ratio 1.2 (1.1-2.2); Alkaline Phosphatase 61 Units/L (38-126); Aspartate Amino Transferase 26 Units/L (5-34); BUN/Creatinine Ratio 12 (6-26); Bilirubin,Total 0.6 mg/dL (0.2-1.2); Blood Urea Nitrogen 11 mg/dL (8-26); Calcium 10.2 mg/dL (8.6-10.8); Carbon Dioxide 28 mEq/L (19-29); Chloride 102 mEq/L (98-109); Globulin 3.7 g/dL (2.4-3.5); Glucose 118 mg/dL (70-99); Lipase 31 Units/L (8-78); Osmolality,Calculated 290 (280-300); Potassium 4.2 mEq/L (3.5-4.5); Sodium 140 mEq/L (136-145); eGFR For African Americans > 60 (> 60); eGFR For Non-African Americans > 60 (> 60)
[2017-04-26] MEDS ORDERED: Aspirin 81 MG TAB.CHEW PO ONE (12:04)
[2017-04-26] MEDS: Nitroglycerin 0.4 MG TAB.SUBL SL PRN ×3 (12:10→12:21)
[2017-04-26] MEDS ORDERED: *HR* FentaNYL (PF) 100 MCG/2 ML VIAL IVP ONE (12:36)
[2017-04-26] MEDS ORDERED: Pantoprazole 80 MG in 0.9 % Sodium Chloride 50 ML IVPB ONE (15:37)
[2017-04-26] MEDS ORDERED: Naloxone 0.4 MG/ML INJ IVP PRN (16:11)
[2017-04-26] MEDS ORDERED: Ondansetron 4 MG/2 ML VIAL IVP PRN (16:11)
[2017-04-26] MEDS ORDERED: Dextrose Gel 15 GM PO PRN ×2 (16:15)
[2017-04-26] MEDS ORDERED: D5% in Water 1,000 ML IVC PRN (16:15)
[2017-04-26] MEDS ORDERED: *HR* Dextrose 50 % in Water (Syg) 50 ML SYRINGE IVP PRN (16:15)
--- NOTE | 2017-04-26 16:29 | Internal Med History&Physical ---
<Joni Peoples - Last Filed: 04/26/17 17:40> Date of Encounter: 04/26/17 Time of Encounter: 16:29 Assessment and Plan (1) GI bleed Current visit: Yes Status: Acute Began approximately 2 days ago. Reporting dark blood in stool, less blood with each subsequent bowel movement. Continues to have abdominal pain GI consulted-nothing by mouth after midnight plan is for EGD in the morning 80 mg IVPB Protonix 1 Start 40 mg IVPB Protonix twice a day tomorrow Every 6 H&H 3 Qualifiers: GI bleed type/associated pathology: unspecified gastrointestinal hemorrhage type Qualified Code(s): K92.2 - Gastrointestinal hemorrhage, unspecified (2) ACS (acute coronary syndrome) Current visit: Yes Status: Acute Intermittent chest pain throughout the last week. No history of CAD, no prior stress or echo. Continues to have intermittent chest pain. 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 Continue ARB/HCTZ, BB, CCB Qualifiers: Hypertension type: essential hypertension Qualified Code(s): I10 - Essential (primary) hypertension (6) DVT prophylaxis Current visit: Yes Status: Acute Withhold SC dvt prophylaxis d/t GI bleed and new hemoptysis mechanical DVT prophylaxis Internal Medicine - H&P: HPI Chief complaint: GI bleed Admitted From: Home Plans for Post Hospital Care: Transfer [facility] Rehab Fac History of present illness: Mr. Knight is a 51 year old male with a PMH of DVT, DM, HTN, and kidney stones. He presents today with dark bloody stools which began yesterday evening. He reports having 2 additional bloody stools since yesterday evening last one being this morning. He admits that he is passing less blood with each subsequent stool. Reports suprapubic and umbilical abdominal pain that is described as sharp. Additionally, He reports some left-sided exertional chest pain described as dull with radiation to the left neck and left arm and some new hemoptysis, "I have been coughing up clots" for the past few days. Denies any fever, chills, fatigue, night sweats. admits to intermittent chest pain with exertion, abdominal pain, and intermittent nausea. Hemeglobin and hematocrit stable Being admitted for workup and evaluation Past Med Surg Social Fam HX - Past Medical History Medical history: DVT, diabetes, hypertension, kidney stones, other Psychiatric history: no psych history - Past Surgical History Surgical History: herniorrhaphy, IVC Filter ([address] Millard), vasectomy, other - Social History Smoking Status: Never smoker Smokeless Tobacco Status: No Alcohol use: none Drug use: none - Family History Father Living Status: Hx Family Cardiac Disorders: Yes ([place]) Mother Living Status: Internal Medicine - H&P: Meds metFORMIN [Glucophage] 1,000 mg PO BID 10/06/15 [History] Metoprolol Succinate 100 mg PO QPM 01/27/17 [History] amLODIPine [Norvasc] 5 mg PO DAILY 01/27/17 [History] Acetaminophen [Tylenol] 650 mg PO Q6HR PRN tab 01/29/17 [Rx] Apixaban [Eliquis] 5 mg PO BID #60 tablet 01/29/17 [Rx] HYDROcodone/Acet 5/325 mg [[place] 5-325 mg] 1 tab PO Q6HR PRN #15 tab 01/29/17 [ Rx] Losartan/HCTZ [Hyzaar 50-12.5 Tablet] 1 each PO DAILY 02/22/17 [History] Amitriptyline HCl 100 mg PO HS 04/26/17 [History] Gabapentin [Neurontin] 600 mg PO TID 04/26/17 [History] Tizanidine HCl 4 mg PO Q8H 04/26/17 [History] 3 Allergy/AdvReac Type Severity Reaction Status Date / Time wasp vemon AdvReac See Uncoded 03/14/17 17:13 Comments All Systems PM: A 10-system review of systems was performed and is negative for pertinent findings except as documented above in the HPI. - Constitutional Constitutional: no chills, no fatigue, no fever(s), no night sweats, no weakness - EENT Eyes: no change in vision, no discharge, no pain, no photophobia Ears: no ear discharge, no ear pain, no tinnitus Nose, mouth and throat: no dysphagia, no nasal discharge, no neck pain, no sore throat - Cardiovascular Cardiovascular ROS IM: as per HPI, chest pain, no diaphoresis, no dyspnea, no dyspnea on exertion, no edema, no irregular heart rhythm, no lightheadedness, no palpitations, no syncope - Respiratory Respiratory: as per HPI, cough, hemoptysis, no dyspnea, no dyspnea on exertion, no wheezing, no pain on inspiration, no excessive phlegm production, no pain with cough - Gastrointestinal Gastrointestinal: as per HPI, abdominal pain, melena, no diarrhea, no hematemesis, no hematochezia, no nausea, no vomiting - Musculoskeletal Musculoskeletal ROS IM: no numbness, no tingling - Integumentary Integumentary IM: no rash, no unusual bruising - Neurological Neurological ROS: no confusion, no convulsions, no focal weakness, no numbness, no tingling, no tremor(s) - Hematologic/Lymphatic Hematologic/Lymphatic: no easy bruising - Constitutional Vitals: Temp Pulse Resp BP Pulse Ox 98.4 F 100 18 129/91 97 04/26/17 15:49 04/26/17 15:49 04/26/17 15:49 04/26/17 15:49 04/26/17 15:49 General appearance: Present: cooperative, A&O X 3, no acute distress, answers questions appropriately - Head Head exam: Present: atraumatic, normocephalic - Eye Eye exam: Present: PERRL, conjuntiva pink, sclera anicteric Pupils: Present: PERRL - Neck Neck exam general surgery: Present: supple, trachea midline. Absent: lymphadenopathy - Respiratory Respiratory exam: Present: CTAB. Absent: accessory muscle use, rales, rhonchi, wheezes - Cardiovascular Cardiovascular exam: Present: RRR, +S1, +S2. Absent: diastolic murmur, gallop, rubs, systolic murmur - GI/Abdominal GI/Abdominal exam: Present: normal bowel sounds, soft, tenderness (mild diffuse tenderness noted to palpation ), no peritoneal signs. Absent: distended, firm, hepatomegaly, mass, splenomegaly - Extremities Exam Extremities exam: Present: normal capillary refill, warm, radial pulses palpable and symmetrical. Absent: calf tenderness, cyanotic, pedal edema - Neurological Exam Neurological exam: Present: alert, CN II-XII intact, oriented X3, no focal deficits. Absent: pronater drift, facial droop, speech deficit - Skin Skin exam: Present: dry, intact Internal Med - H&P Results - Labs CBC & Chem 7: 04/26/17 16:27 04/26/17 09:35 - Diagnostic Studies Chest x-ray Status: image reviewed by me Additional comments: no acute pulmonary process Other Images Status: image reviewed by me Additional comments: CTA CHEST NEGATIVE FOR PE CT scan - abdomen Status: image reviewed by me Additional comments: There are nonobstructing bilateral renal calculi. There is a stable 2.6 cm left adrenal nodule. Remaining solid abdominal organs and gallbladder unremarkable. GI/Bowel: No gastrointestinal abnormality is demonstrated. There are no diverticular changes. The appendix is normal. Pelvis: Streak artifact from a right hip prosthesis. Urinary bladder grossly unremarkable. No pelvic fluid or adenopathy Peritoneum/Retroperitoneum: Aorta normal in caliber. There is an IVC filter. No retroperitoneal adenopathy. No ascites or pneumoperitoneum <Rustam Marino - Last Filed: 04/27/17 19:37> Date of Encounter: 04/27/17 Internal Medicine - H&P: HPI History of present illness: Mr. Knight is a 51 year old male All Systems PM: A 10-system review of systems was performed and is negative for pertinent findings except as documented above in the HPI. - Constitutional Vitals: Temp Pulse Resp BP Pulse Ox 98.7 F 119 15 105/66 94 04/26/17 18:55 04/26/17 18:55 04/26/17 18:55 04/26/17 18:55 04/26/17 18:55 Internal Med - H&P Results - Labs CBC & Chem 7: 04/27/17 15:42 04/27/17 15:42 Labs: Short CBC 04/26/17 Range/Units 16:27 Hgb 14.2 (12.9-16.9) g/dL Hct 41.5 (37.5-50.1) % Cardiac Enzymes 04/26/17 Range/Units 16:27 Troponin I 0.00 (0-0.03) ng/mL - Attending Attestation I have personally performed a face to face evaluation on this patient. I have reviewed and agree with the care plan. History and Exam by me shows: 51-year-old male came to the hospital was complaining of blood in stool. Patient is complaining of neck pain patient is status is supposed to have epidural injection which was canceled. Patient stated also has chest pain, had some trouble with urination occasionally Chest clear to auscultation Heart S1-S2 normal regular rate and rhythm Abdomen soft Extremity no edema Assessment and plan Possible GI bleeding Chest pain Neck pain Difficulty with urination Check bladder scan, pain medication as needed every 4 hour, check PSA, check bladder scan, close monitoring for any arrhythmia overnight, discussed with manager fine dining EGD tomorrow morning
[2017-04-26 16:43] LABS: Hematocrit 41.5 % (37.5-50.1); Hemoglobin 14.2 g/dL (12.9-16.9)
--- NOTE | 2017-04-26 17:21 | Electrocardiograph Report ---
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
[2017-04-26] MEDS: *HR* HYDROcodone/Acet 5/325 mg TABLET PO PRN ×2 (17:55→22:27)
[2017-04-26] MEDS: Gabapentin 300 MG CAPSULE PO SCH ×2 (17:57→22:27)
[2017-04-26] MEDS: Metoprolol XL (24 HR) Succ 50 MG TAB.ER.24H PO SCH (17:57)
[2017-04-26] MEDS: tiZANidine 4 MG TABLET PO SCH (17:57)
[2017-04-26] MEDS: Pantoprazole 80 MG in 0.9 % Sodium Chloride 250 ML IVC SCH (17:58)
[2017-04-26] MEDS: Insulin LISPRO 300 UNITS/3 ML VIAL SQ SCH (17:59)
[2017-04-26] MEDS ORDERED: *HR* Morphine 2 MG/ML SYRINGE IVP PRN (20:50)
[2017-04-26] MEDS: 0.9 % Sodium Chloride 1,000 ML IVC SCH (21:50)
[2017-04-26 22:11] LABS: Hematocrit 37.4 % (37.5-50.1); Hemoglobin 12.8 g/dL (12.9-16.9)
[2017-04-27] MEDS: tiZANidine 4 MG TABLET PO SCH ×3 (00:19→15:59)
[2017-04-27] MEDS: Insulin LISPRO 300 UNITS/3 ML VIAL SQ SCH ×4 (01:28→18:47)
[2017-04-27] MEDS: Pantoprazole 80 MG in 0.9 % Sodium Chloride 250 ML IVC SCH ×2 (03:15→14:36)
[2017-04-27 04:28] LABS: Basophils % 0.4 %; Eosinophils # 0.2 K/mcL (0.0-0.6); Eosinophils % 3.4 %; Hematocrit 35.1 % (37.5-50.1); Immature Granulocytes % 0.4 % (0-4); Lymphocytes # 1.9 K/mcL (0.6-4.6); Lymphocytes % 35.8 %; Mean Corpuscular HGB Conc 34.2 g/dL (31.6-35.5); Mean Corpuscular Hemoglobin 30.3 pg (28.0-33.3); Mean Corpuscular Volume 88.6 fL (83.0-100.0); Mean Platelet Volume 10.2 fL (9.4-12.4); Monocytes # 0.5 K/mcL (0.0-1.3); Monocytes % 8.9 %; Neutrophils # 2.7 K/mcL (1.6-8.9); Platelet Count 160 K/mcL (140-400); Red Blood Count 3.96 M/mcL (4.19-5.50); Red Cell Distribution Width 12.9 % (11.5-14.5); Segmented Neutrophils % 51.1 %
[2017-04-27 04:54] LABS: Alanine Aminotransferase 25 Units/L (0-55); Alkaline Phosphatase 52 Units/L (38-126); Aspartate Amino Transferase 17 Units/L (5-34); BUN/Creatinine Ratio 9 (6-26); Bilirubin,Total 0.2 mg/dL (0.2-1.2); Blood Urea Nitrogen 11 mg/dL (8-26); Calcium 8.9 mg/dL (8.6-10.8); Carbon Dioxide 23 mEq/L (19-29); Chloride 115 mEq/L (98-109); Globulin 3.3 g/dL (2.4-3.5); Glucose 165 mg/dL (70-99); Osmolality,Calculated 303 (280-300); Sodium 145 mEq/L (136-145); Total Protein 6.7 g/dL (6.0-8.3); eGFR For African Americans > 60 (> 60); eGFR For Non-African Americans > 60 (> 60)
[2017-04-27 05:20] LABS: Albumin 3.4 g/dL (3.5-5.0); Potassium 5.9 mEq/L (3.5-4.5)
[2017-04-27] MEDS: 0.9 % Sodium Chloride 1,000 ML IVC SCH ×3 (06:01→18:45)
[2017-04-27] MEDS: Pantoprazole 40 MG VIAL IVP SCH ×2 (06:02→17:26)
[2017-04-27] MEDS: amLODIPine 5 MG TABLET PO SCH (10:37)
[2017-04-27] MEDS: Gabapentin 300 MG CAPSULE PO SCH ×3 (10:37→20:24)
[2017-04-27] MEDS: Losartan/HCTZ 50-12.5 TABLET PO SCH (10:37)
[2017-04-27] MEDS: *HR* HYDROcodone/Acet 5/325 mg TABLET PO PRN ×3 (10:41→20:25)
--- NOTE | 2017-04-27 11:30 | Gastroenterology Consult Note ---
<Kale Hoyt Mckenzie - Last Filed: 04/27/17 11:28> Date of Encounter: 04/27/17 Time of Encounter: 10:45 - Assessment and plan (1) GI bleed Current Visit: Yes Status: Acute Assessment and plan: He has been having dark red BMs and coughing/vomiting blood for the past "few" days. Continue PPI drip. Plan for EGD today to r/o esophagitis, gastritis, duodenitis, PUD, MW tear, or AVM. Consider colonoscopy tomorrow. Qualifiers: GI bleed type/associated pathology: unspecified gastrointestinal hemorrhage type Qualified Code(s): K92.2 - Gastrointestinal hemorrhage, unspecified (2) Hemoptysis Current Visit: Yes Status: Acute Assessment and plan: Pulmonology consulted. - Time Spent With Patient Total time spent is greater than 50% in coordination of care (as documented) at patient's floor/unit and/or counseling patient: GI History of Present Illness - Data of Consult Patient: new to practice Consult date: 04/27/17 Requesting Physician: Gertrudis Brannon CNP - Consult Narrative Reason for consult: Possible upper GI bleed History of present illness: Mr. Knight is a 51 year old male with PMHx of DVT, DM, HTN, and kidney stones who presented to the ED with dark bloody stools that started the day prior to admission. He reports a total of 3 bloody BMs, with less blood with each subsequent BM. He reports he has been coughing or vomiting bright red blood as well. He denies any coughing/vomiting blood since admission. He denies fever, chills, fatigue, constipation, or diarrhea. CTA chest with no PE and CT A/P with no gastrointestinal abnormality is demonstrated. There are no diverticular changes. No findings to account for rectal bleeding. He was started on PPI BID. Hgb on admission was 14 and this AM Hgb 12. Procedures: None NSAIDs: None Anticoagulation: Eliquis Past Med Surg Social Fam HX - Past Medical History Medical history: DVT, diabetes, hypertension, kidney stones, other Psychiatric history: no psych history - Past Surgical History Surgical History: herniorrhaphy, IVC Filter ([address] Millard), vasectomy, other - Social History Smoking Status: Never smoker Smokeless Tobacco Status: No Alcohol use: none Drug use: none - Family History Father Living Status: Hx Family Cardiac Disorders: Yes ([place]) Mother Living Status: - Gastrointestinal Gastrointestinal: Present: as per HPI - Constitutional Constitutional: as per HPI - EENT Eyes: as per HPI Ears: Present: as per HPI Nose, mouth and throat: Present: as per HPI - Cardiovascular Cardiovascular ROS: Present: as per HPI - Respiratory Respiratory IM: Present: as per HPI - Genitourinary Genitourinary: Absent: change in color, Urinary frequency - Neurological ROS Neurological GI: Present: as per HPI - Hematologic/Lymphatic Hematologic/Lymphatic pediatric: Present: as per HPI - Musculoskeletal Musculoskeletal ROS GI: Present: as per HPI - Integumentary Integumentary GI: Present: as per HPI - Psychiatric ROS Psychiatric GI: Present: as per HPI - Endocrine Endocrine IM: Present: as per HPI - Constitutional Vitals: Temp Pulse Resp BP Pulse Ox 97.7 F 98 18 142/88 97 04/27/17 11:25 04/27/17 11:25 04/27/17 11:25 04/27/17 11:25 04/27/17 11:25 General appearance: Present: cooperative, A&O X 3, no acute distress, answers questions appropriately - Head Head exam: Present: atraumatic, normocephalic - Eye Eye exam: Present: normal appearance, sclera anicteric - ENT ENT exam: Present: mucous membranes dry - Neck Neck exam general surgery: Present: normal inspection, trachea midline - Respiratory Respiratory exam: Present: CTAB. Absent: rales, rhonchi, wheezes - Cardiovascular Cardiovascular exam: Present: RRR, +S1, +S2 - GI/Abdominal GI/Abdominal exam: Present: soft, no peritoneal signs. Absent: distended, firm , guarding, tenderness - Rectal Rectal exam: Present: deferred - Extremities Exam Extremities exam: Present: warm - Neurological Exam Neurological exam: Present: no focal deficits - Psychiatric Psychiatric exam: Present: normal affect, normal mood - Skin Skin exam: Present: dry, intact, normal color, warm Results - Labs CBC & Chem 7: 04/27/17 03:48 04/27/17 03:48 Labs: Last Result Calcium 8.9 mg/dL (8.6-10.8) 04/27/17 03:48 Troponin I 0.00 ng/mL (0-0.03) 04/26/17 16:27 Entire Visit Hgb 12.0 g/dL (12.9-16.9) L 04/27/17 03:48 Hct 35.1 % (37.5-50.1) L 04/27/17 03:48 PT 10.4 Seconds (9.4-12.1) 04/26/17 09:35 Total Bilirubin 0.2 mg/dL (0.2-1.2) 04/27/17 03:48 AST 17 Units/L (5-34) 04/27/17 03:48 ALT 25 Units/L (0-55) 04/27/17 03:48 Lipase 31 Units/L (8-78) 04/26/17 09:35 - ABG ABG results: PT/INR, D-dimer PT 10.4 Seconds (9.4-12.1) 04/26/17 09:35 - Impressions Impressions Echocardiogram 04/26/17 17:35 Impressions: LVEF 65%. Mild left ventricular diastolic dysfunction. Normal right ventricular structure and function. No significant valvular dysfunction. No pulmonary hypertension. Left Ventricular Wall Motion: Rest Echo Findings All wall segments showed normal motion. Findings: Study Quality * Technically adequate exam. ECG Findings * Normal sinus rhythm. Left Ventricle * Normal LV chamber size, wall thickness and function. * LVEF 65%. * Mild left ventricular diastolic dysfunction. Right Ventricle * Normal right ventricular structure and function. Left Atrium * Normal left atrial size. Right Atrium * Normal right atrial size. Aortic Valve * No aortic regurgitation. * Trileaflet aortic valve. * Normal aortic valve structure. * No aortic stenosis. Mitral Valve * Normal mitral valve structure. * No mitral stenosis. * Trace mitral regurgitation. Tricuspid Valve * No tricuspid regurgitation. * Normal tricuspid valve structure. * Estimated RA pressure is 3 mmHg. Pulmonic Valve * Pulmonic valve is not well visualized. * No pulmonic stenosis. * No pulmonic regurgitation. Pulmonary Artery * Normal visualized portions of the main pulmonary artery. Aorta * Normally sized aortic root. Pericardium * There is no pericardial effusion present. Interatrial Septum * No evidence of PFO by color Doppler. IVC * Normal IVC dimensions and inspiratory collapse. Consult Discharge Plan - Plan Referrals: Thomas Garcia MD [Primary Care Provider] - <Benjamin Kevin - Last Filed: 04/27/17 13:13> Date of Encounter: 04/27/17 Time of Encounter: 13:00 - Time Spent With Patient Total time spent is greater than 50% in coordination of care (as documented) at patient's floor/unit and/or counseling patient: GI History of Present Illness - Data of Consult Requesting Physician: Gertrudis Brannon CNP - Consult Narrative History of present illness: Mr. Knight is a 51 year old male - Constitutional Vitals: Temp Pulse Resp BP Pulse Ox 97.8 F 92 18 135/74 95 04/27/17 12:49 04/27/17 12:49 04/27/17 12:49 04/27/17 12:49 04/27/17 12:49 Results - Labs CBC & Chem 7: 04/27/17 03:48 04/27/17 03:48 Labs: Last Result Calcium 8.9 mg/dL (8.6-10.8) 04/27/17 03:48 Troponin I 0.00 ng/mL (0-0.03) 04/26/17 16:27 Entire Visit Hgb 12.0 g/dL (12.9-16.9) L 04/27/17 03:48 Hct 35.1 % (37.5-50.1) L 04/27/17 03:48 PT 10.4 Seconds (9.4-12.1) 04/26/17 09:35 Total Bilirubin 0.2 mg/dL (0.2-1.2) 04/27/17 03:48 AST 17 Units/L (5-34) 04/27/17 03:48 ALT 25 Units/L (0-55) 04/27/17 03:48 Lipase 31 Units/L (8-78) 04/26/17 09:35 - ABG ABG results: PT/INR, D-dimer PT 10.4 Seconds (9.4-12.1) 04/26/17 09:35 - Impressions Impressions Echocardiogram 04/26/17 17:35 Impressions: LVEF 65%. Mild left ventricular diastolic dysfunction. Normal right ventricular structure and function. No significant valvular dysfunction. No pulmonary hypertension. Left Ventricular Wall Motion: Rest Echo Findings All wall segments showed normal motion. Findings: Study Quality * Technically adequate exam. ECG Findings * Normal sinus rhythm. Left Ventricle * Normal LV chamber size, wall thickness and function. * LVEF 65%. * Mild left ventricular diastolic dysfunction. Right Ventricle * Normal right ventricular structure and function. Left Atrium * Normal left atrial size. Right Atrium * Normal right atrial size. Aortic Valve * No aortic regurgitation. * Trileaflet aortic valve. * Normal aortic valve structure. * No aortic stenosis. Mitral Valve * Normal mitral valve structure. * No mitral stenosis. * Trace mitral regurgitation. Tricuspid Valve * No tricuspid regurgitation. * Normal tricuspid valve structure. * Estimated RA pressure is 3 mmHg. Pulmonic Valve * Pulmonic valve is not well visualized. * No pulmonic stenosis. * No pulmonic regurgitation. Pulmonary Artery * Normal visualized portions of the main pulmonary artery. Aorta * Normally sized aortic root. Pericardium * There is no pericardial effusion present. Interatrial Septum * No evidence of PFO by color Doppler. IVC * Normal IVC dimensions and inspiratory collapse. - Attending Attestation I examined this patient and my medical decision-making was reviewed with the Resident Physician. I agree with the documented findings, disposition and treatment plan as described except to the extent set forth below. Patient with dark bloody bowel movement along with some vomiting of blood. We will do an EGD to rule out esophagitis gastritis peptic ulcer disease if EGD negative then patient will need a colonoscopy in am
[2017-04-27] MEDS: *HR* HYDROmorphone (PF) 1 MG/ML SYRINGE IVP PRN ×2 (12:29→21:37)
[2017-04-27] MEDS ORDERED: Famotidine 20 MG/2 ML VIAL IVP ONE (12:57)
[2017-04-27] MEDS ORDERED: Metoclopramide 10 MG/2 ML VIAL IVP PRN (12:58)
[2017-04-27] MEDS ORDERED: Metoclopramide 10 MG/2 ML VIAL ONE (12:59)
[2017-04-27] MEDS ORDERED: Famotidine 20 MG/2 ML VIAL ONE (13:00)
--- NOTE | 2017-04-27 13:04 | Anesthesia Evaluation PreOp ---
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 ASSISTANT History: Other (Peripheral Neuropathy maintained on Gabapentin, Amitryptiline) Other Medical History: Bleeding (Hx DVT s/p [place] filter 2008 maintained on Eliquis), Diabetes Type II (maintained on Metformin) Anesthesia History: No Prior Anesthetic Complications, Past Anesthesia (Hernia repair, IVC filter 2008, Vasectomy) Alcohol Use: none Drug use: none Medications and Allergies metFORMIN [Glucophage] 1,000 mg PO BID 10/06/15 [History] Metoprolol Succinate 100 mg PO QPM 01/27/17 [History] amLODIPine [Norvasc] 5 mg PO DAILY 01/27/17 [History] Acetaminophen [Tylenol] 650 mg PO Q6HR PRN tab 01/29/17 [Rx] Apixaban [Eliquis] 5 mg PO BID #60 tablet 01/29/17 [Rx] HYDROcodone/Acet 5/325 mg [[place] 5-325 mg] 1 tab PO Q6HR PRN #15 tab 01/29/17 [ Rx] Losartan/HCTZ [Hyzaar 50-12.5 Tablet] 1 each PO DAILY 02/22/17 [History] Amitriptyline HCl 100 mg PO HS 04/26/17 [History] Gabapentin [Neurontin] 600 mg PO TID 04/26/17 [History] Tizanidine HCl 4 mg PO Q8H 04/26/17 [History] 3 Allergy/AdvReac Type Severity Reaction Status Date / Time wasp vemon AdvReac See Uncoded 03/14/17 17:13 Comments - Meds/Allergy Pre-op Review Medications Reviewed: Yes Allergies Reviewed: Yes Beta Blockers on Current Med List: No Anesthesia Results - Labs 04/27/17 03:48 04/27/17 03:48 Laboratory Results Impressions Abdomen/Pelvis CT 04/26/17 09:14 IMPRESSION: 1. No acute process demonstrated. 2. No evidence of pulmonary embolism 3. No findings to account for rectal bleeding 4. Nonobstructing bilateral nephrolithiasis 5. Stable left adrenal adenoma D/ / Levi Leal MD / Levi Leal MD Interpreting Provider: Levi Leal MD Chest CTA 04/26/17 09:14 IMPRESSION: 1. No acute process demonstrated. 2. No evidence of pulmonary embolism 3. No findings to account for rectal bleeding 4. Nonobstructing bilateral nephrolithiasis 5. Stable left adrenal adenoma D/ / Levi Leal MD / Levi Leal MD Interpreting Provider: Levi Leal MD Chest X-Ray 04/26/17 09:44 IMPRESSION: No acute cardiopulmonary process. D/ / 04/26/2017 10:32:28 Thomas Santamaria MD / Leonarda Ying Interpreting Provider: Thomas Santamaria MD Echocardiogram 04/26/17 17:35 Impressions: LVEF 65%. Mild left ventricular diastolic dysfunction. Normal right ventricular structure and function. No significant valvular dysfunction. No pulmonary hypertension. Left Ventricular Wall Motion: Rest Echo Findings All wall segments showed normal motion. Findings: Study Quality * Technically adequate exam. ECG Findings * Normal sinus rhythm. Left Ventricle * Normal LV chamber size, wall thickness and function. * LVEF 65%. * Mild left ventricular diastolic dysfunction. Right Ventricle * Normal right ventricular structure and function. Left Atrium * Normal left atrial size. Right Atrium * Normal right atrial size. Aortic Valve * No aortic regurgitation. * Trileaflet aortic valve. * Normal aortic valve structure. * No aortic stenosis. Mitral Valve * Normal mitral valve structure. * No mitral stenosis. * Trace mitral regurgitation. Tricuspid Valve * No tricuspid regurgitation. * Normal tricuspid valve structure. * Estimated RA pressure is 3 mmHg. Pulmonic Valve * Pulmonic valve is not well visualized. * No pulmonic stenosis. * No pulmonic regurgitation. Pulmonary Artery * Normal visualized portions of the main pulmonary artery. Aorta * Normally sized aortic root. Pericardium * There is no pericardial effusion present. Interatrial Septum * No evidence of PFO by color Doppler. IVC * Normal IVC dimensions and inspiratory collapse. - Imaging EKG: image reviewed Anesthesia Exam Vital Signs Temp Pulse Resp BP Pulse Ox 04/27/17 12:49 97.8 F 92 18 135/74 95 04/27/17 11:25 97.7 F 98 18 142/88 97 04/27/17 10:44 96 04/27/17 06:41 97.6 F 88 18 128/94 96 04/27/17 04:14 97.6 F 80 16 120/76 98 04/26/17 23:30 98.0 F 103 20 108/72 94 04/26/17 18:55 98.7 F 119 15 105/66 94 04/26/17 16:55 94 04/26/17 15:49 98.4 F 100 18 129/91 97 04/26/17 14:26 108 145/99 96 04/26/17 13:43 99 18 116/78 97 Intake and Output 04/26/17 04/27/17 04/27/17 23:59 07:59 15:59 Intake Total 240 / 240 1250 / 1250 Output Total 600 / 600 1200 / 1200 Balance -360 / -360 1250 / 1250 -1200 / -1200 Intake: IV Fluids 1250 / 1250 0.9 % Sodium Chloride 1,000 ML 1000 / 1000 @ 125 mls/hr IVC .Q8H RUSLAN Rx#: [id number] Protonix 80 MG In 0.9 % Sodium 250 / 250 Chloride 250 ML @ 25 mls/hr IVC .Q10H [facility]US[facility]AN Rx#:[id number] Oral 240 / 240 Output: Urine 600 / 600 1200 / 1200 Other: Meal Dinner Percent of Meal Consumed 100% Weight 90.293 kg 92.261 kg Blood Glucose* 221 255 143 Patient Weight 04/27/17 23:59 Weight 92.261 kg Height: 5'6" Weight: 203# bmi = 33 NPO (# of Hours): mnoC - HEENT Pupil (Motor): Pupils equal, EOMI Mallampati: III Teeth: Poor dentition Oral Opening: Greater than 3 - CORPORATE LAW ASSISTANT LOC: Oriented CORPORATE LAW ASSISTANT Motor: Normal RUE, Normal LUE, Normal RLE, Normal LLE, Normal Face CORPORATE LAW ASSISTANT Sensory: Normal: RUE, LUE, RLE, LLE, Face - Cardiac Rhythm: Regular Murmur: None - Pulmonary Breath Sounds: bilateral Clear Respiratory Effort: Symmetrical Anesthesia Assess/Plan ASA Score: 3 (DM, HTN, Chol, obesity, Hx of PE) Modified Lucio Scale for Level of Consciousness: Cooperative, oriented, and tranquil Anesthetic Plan: MAC Monitoring Plan: A-Line Recovery Plan: Other Anes Supervising Prov Stmt: PT seen/evaluated, R&B Discussed, questions answered and consent obtained. Bob Hernandez MD
[2017-04-27] MEDS ORDERED: *HR* Propofol 200 MG/20 ML VIAL IVP ONE (13:13)
[2017-04-27] MEDS ORDERED: 0.9 % Sodium Chloride 1,000 ML IVC SCH (13:15)
[2017-04-27] MEDS ORDERED: SODIUM CHLORIDE/NAHCO3/KCL/PEG 4,000 ML SOLN.RECON PO ONE (14:12)
[2017-04-27 15:48] LABS: Hematocrit 38.5 % (37.5-50.1); Hemoglobin 12.9 g/dL (12.9-16.9)
--- NOTE | 2017-04-27 15:48 | Internal Med Progress Note ---
Date of Encounter: 04/27/17 Time of Encounter: 13:00 - Assessment and plan (1) Melena Current Visit: Yes Status: Acute Assessment and plan: Kale Knight is a 51-year-old male with past medical history diabetes and hypertension who presented to [facility] on 04[facility]26/2017 with complaints of melena and chest pain. His placed in observation status for ACS rule out and GI evaluation. 1. Melena: Patient reports black stools for 2 days prior to presentation, with associated abdominal pain. Received IV PPI in ED. Hgb 14 on arrival and dropped to 12. Hemodynamically stable, no tachycardia no hypertension. 2016 EGD with gastritis. Continue IV PPI, monitor H&H. Transfuse for Hgb less than 7. Holding home eliquis. NPO at midnight for colonoscopy. GI following 2. Atypical chest pain: with intermittent chest pain for 1 week prior to presentation. Serial troponins negative, EKG without acute ST changes. Stress test negative for ischemia, infarct. Do not suspect cardiac etiology, possibly secondary to GI source. 3. Essential hypertension: per hx. BP controlled. Continue home BP medications. Monitor BP and titrate PRN 4. Hyperkalemia: K 5.9. Received IV boluses and maintenance IV fluid. STAT potassium pending. 5. Elevated lactic acid: lactic acid 2.3. No obvious infectious source. Possibly secondary to home metformin. Treated with IV fluids. Monitor repeat lactic acid. 6. 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 Treated with Lovenox and Coumadin for 6 months. Has IVC filter in place. With recent left upper extremity DVT on 01/2017. Started on Eliquis at that time. Evaluated by hematology who recommended lifelong anticoagulation due to to unprovoked DVTs. Home Eliquis on hold prior to arrival due to to planned cervical epidural injection. 5. Diabetes: per hx. Holding home oral medication. SSI. Monitor blood sugar and titrate PRN. Hgb A1c pending 6. DVT prophylaxis: SCDs (2) Chest pain Current Visit: Yes Status: Acute Qualifiers: Chest pain type: unspecified Qualified Code(s): R07.9 - Chest pain, unspecified (3) Diabetes Current Visit: No Status: Chronic Qualifiers: Diabetes mellitus type: type 2 Diabetes mellitus complication status: without complication Diabetes mellitus medical terminologist insulin use: without medical terminologist use Qualified Code(s): E11.9 - Type 2 diabetes mellitus without complications (4) HTN (hypertension) Current Visit: Yes Status: Acute Qualifiers: Hypertension type: essential hypertension Qualified Code(s): I10 - Essential (primary) hypertension - Subjective Interval history: Seen and examined at bedside. Patient is new to me, information obtained from chart review and patient report. Patient just returned from EGD a little while ago. It made him aware of results. He has no real complaints, denies chest pain. Says he has intermittent abdominal pain. No hematochezia or melena since arrival. - Constitutional Vitals: Temp Pulse Resp BP Pulse Ox 97.5 F L 88 18 134/94 99 04/27/17 15:04 04/27/17 15:04 04/27/17 15:04 04/27/17 15:04 04/27/17 15:04 General appearance: Present: cooperative, A&O X 3, morbidly obese, no acute distress, answers questions appropriately - Head Head exam: Present: atraumatic, normocephalic - Eye Eye exam: Present: PERRL, conjuntiva pink, sclera anicteric Pupils: Present: PERRL - Neck Neck exam general surgery: Present: supple, trachea midline. Absent: lymphadenopathy - Respiratory Respiratory exam: Present: CTAB. Absent: accessory muscle use, rales, rhonchi, wheezes - Cardiovascular Cardiovascular exam: Present: RRR, +S1, +S2. Absent: diastolic murmur, gallop, rubs, systolic murmur - GI/Abdominal GI/Abdominal exam: Present: normal bowel sounds, soft, no peritoneal signs. Absent: distended, tenderness - Extremities Exam Extremities exam: Present: warm, radial pulses palpable and symmetrical. Absent : calf tenderness, cyanotic, pedal edema - Neurological Exam Neurological exam: Present: CN II-XII intact, oriented X3, no focal deficits. Absent: pronater drift, facial droop, speech deficit - Skin Skin exam: Present: dry, intact Internal Medicine: Result - Labs CBC & Chem 7: 04/27/17 03:48 04/27/17 03:48 Labs: Short CBC 04/26/17 04/26/17 04/27/17 Range/Units 16:27 22:03 03:48 WBC 5.3 (4.3-11.1) K/mcL Hgb 14.2 12.8 L 12.0 L (12.9-16.9) g/dL Hct 41.5 37.4 L 35.1 L (37.5-50.1) % Plt Count 160 (140-400) K/mcL Neutrophils # 2.7 (1.6-8.9) K/mcL BMP 04/27/17 03:48 Sodium 145 Potassium 5.9 H D Chloride 115 H Carbon Dioxide 23 BUN 11 Creatinine 1.18 Glucose 165 H Calcium 8.9 Cardiac Enzymes 04/26/17 Range/Units 16:27 Troponin I 0.00 (0-0.03) ng/mL Liver Function 04/27/17 Range/Units 03:48 Total Bilirubin 0.2 (0.2-1.2) mg/dL AST 17 (5-34) Units/L ALT 25 (0-55) Units/L Alkaline Phosphatase 52 (38-126) Units/L Albumin 3.4 L D (3.5-5.0) g/dL - ABG Interpretation ABG results: PT/INR, D-dimer PT 10.4 Seconds (9.4-12.1) 04/26/17 09:35 - Impressions Impressions Echocardiogram 04/26/17 17:35 Impressions: LVEF 65%. Mild left ventricular diastolic dysfunction. Normal right ventricular structure and function. No significant valvular dysfunction. No pulmonary hypertension. Left Ventricular Wall Motion: Rest Echo Findings All wall segments showed normal motion. Findings: Study Quality * Technically adequate exam. ECG Findings * Normal sinus rhythm. Left Ventricle * Normal LV chamber size, wall thickness and function. * LVEF 65%. * Mild left ventricular diastolic dysfunction. Right Ventricle * Normal right ventricular structure and function. Left Atrium * Normal left atrial size. Right Atrium * Normal right atrial size. Aortic Valve * No aortic regurgitation. * Trileaflet aortic valve. * Normal aortic valve structure. * No aortic stenosis. Mitral Valve * Normal mitral valve structure. * No mitral stenosis. * Trace mitral regurgitation. Tricuspid Valve * No tricuspid regurgitation. * Normal tricuspid valve structure. * Estimated RA pressure is 3 mmHg. Pulmonic Valve * Pulmonic valve is not well visualized. * No pulmonic stenosis. * No pulmonic regurgitation. Pulmonary Artery * Normal visualized portions of the main pulmonary artery. Aorta * Normally sized aortic root. Pericardium * There is no pericardial effusion present. Interatrial Septum * No evidence of PFO by color Doppler. IVC * Normal IVC dimensions and inspiratory collapse. Consult Discharge Plan - Plan Referrals: Thomas Garcia MD [Primary Care Provider] - 05/05/17 10:40 am
[2017-04-27] MEDS ORDERED: 0.9 % Sodium Chloride 1,000 ML IVC ONE (17:08)
[2017-04-27] MEDS: Metoprolol XL (24 HR) Succ 50 MG TAB.ER.24H PO SCH (17:25)
[2017-04-28] MEDS: Insulin LISPRO 300 UNITS/3 ML VIAL SQ SCH ×5 (00:10→23:24)
[2017-04-28] MEDS: tiZANidine 4 MG TABLET PO SCH ×4 (00:13→23:06)
[2017-04-28] MEDS: *HR* HYDROmorphone (PF) 1 MG/ML SYRINGE IVP PRN ×4 (04:34→21:53)
[2017-04-28] MEDS: Pantoprazole 40 MG VIAL IVP SCH ×2 (04:34→18:21)
[2017-04-28] MEDS: 0.9 % Sodium Chloride 1,000 ML IVC SCH ×2 (04:35→13:45)
[2017-04-28 04:55] LABS: Hematocrit 35.1 % (37.5-50.1); Hemoglobin 11.8 g/dL (12.9-16.9); Mean Corpuscular HGB Conc 33.6 g/dL (31.6-35.5); Mean Corpuscular Hemoglobin 29.6 pg (28.0-33.3); Mean Platelet Volume 10.1 fL (9.4-12.4); Platelet Count 154 K/mcL (140-400); Red Blood Count 3.99 M/mcL (4.19-5.50); Red Cell Distribution Width 12.8 % (11.5-14.5)
[2017-04-28 05:21] LABS: Alanine Aminotransferase 26 Units/L (0-55); Albumin 3.2 g/dL (3.5-5.0); Albumin/Globulin Ratio 1.1 (1.1-2.2); Alkaline Phosphatase 47 Units/L (38-126); Aspartate Amino Transferase 19 Units/L (5-34); BUN/Creatinine Ratio 7 (6-26); Bilirubin,Total 0.4 mg/dL (0.2-1.2); Blood Urea Nitrogen 6 mg/dL (8-26); Calcium 8.5 mg/dL (8.6-10.8); Carbon Dioxide 27 mEq/L (19-29); Chloride 108 mEq/L (98-109); Glucose 112 mg/dL (70-99); Osmolality,Calculated 292 (280-300); Sodium 142 mEq/L (136-145); Total Protein 6.2 g/dL (6.0-8.3); eGFR For African Americans > 60 (> 60); eGFR For Non-African Americans > 60 (> 60)
[2017-04-28] MEDS: Gabapentin 300 MG CAPSULE PO SCH ×3 (08:03→23:07)
[2017-04-28] MEDS: *HR* HYDROcodone/Acet 5/325 mg TABLET PO PRN ×3 (08:04→18:20)
[2017-04-28] MEDS: amLODIPine 5 MG TABLET PO SCH (08:04)
[2017-04-28] MEDS: Losartan/HCTZ 50-12.5 TABLET PO SCH (08:04)
[2017-04-28] MEDS ORDERED: *HR* Propofol 500 MG/50 ML BOTTLE IVC ONE (11:01)
--- NOTE | 2017-04-28 12:57 | Anesthesia Evaluation PreOp ---
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: Other (Peripheral Neuropathy) Other Medical History: Bleeding (Hx DVT s/p [place] filter 2008), Diabetes Type II, Other (abdominal pain, melena, hemoptysis) Anesthesia History: No Prior Anesthetic Complications, Past Anesthesia (Hernia repair, IVC filter 2008, Vasectomy, EGD 04/27/2017) Alcohol Use: none Drug use: none Medications and Allergies metFORMIN [Glucophage] 1,000 mg PO BID 10/06/15 [History] Metoprolol Succinate 100 mg PO QPM 01/27/17 [History] amLODIPine [Norvasc] 5 mg PO DAILY 01/27/17 [History] Acetaminophen [Tylenol] 650 mg PO Q6HR PRN tab 01/29/17 [Rx] Apixaban [Eliquis] 5 mg PO BID #60 tablet 01/29/17 [Rx] HYDROcodone/Acet 5/325 mg [[place] 5-325 mg] 1 tab PO Q6HR PRN #15 tab 01/29/17 [ Rx] Losartan/HCTZ [Hyzaar 50-12.5 Tablet] 1 each PO DAILY 02/22/17 [History] Amitriptyline HCl 100 mg PO HS 04/26/17 [History] Gabapentin [Neurontin] 600 mg PO TID 04/26/17 [History] Tizanidine HCl 4 mg PO Q8H 04/26/17 [History] 3 Allergy/AdvReac Type Severity Reaction Status Date / Time wasp vemon AdvReac See Uncoded 03/14/17 17:13 Comments - Meds/Allergy Pre-op Review Medications Reviewed: Yes Allergies Reviewed: Yes Beta Blockers on Current Med List: No Anesthesia Results - Labs 04/28/17 04:11 04/28/17 04:11 Abdomen/Pelvis CT 04/26/17 09:14 IMPRESSION: 1. No acute process demonstrated. 2. No evidence of pulmonary embolism 3. No findings to account for rectal bleeding 4. Nonobstructing bilateral nephrolithiasis 5. Stable left adrenal adenoma Chest CTA 04/26/17 09:14 IMPRESSION: 1. No acute process demonstrated. 2. No evidence of pulmonary embolism 3. No findings to account for rectal bleeding 4. Nonobstructing bilateral nephrolithiasis 5. Stable left adrenal adenoma Echocardiogram 04/26/17 17:35 Impressions: LVEF 65%. Mild left ventricular diastolic dysfunction. Normal right ventricular structure and function. No significant valvular dysfunction. No pulmonary hypertension. - Imaging EKG: image reviewed (ST) Chest x-ray: report reviewed (Chest X-Ray 04/26/17 09:44 IMPRESSION: No acute cardiopulmonary process.) Anesthesia Exam O2 Sat Weight 94.483 kg O2 Sat by Pulse Oximetry 98 O2 Sat by Pulse Oximetry 93 O2 Sat by Pulse Oximetry 97 O2 Sat by Pulse Oximetry 94 O2 Sat by Pulse Oximetry 98 O2 Sat by Pulse Oximetry 99 O2 Sat by Pulse Oximetry 95 Vital Signs Temp Pulse Resp BP Pulse Ox 98 F 105 18 138/90 97 04/26/17 09:07 04/26/17 09:07 04/26/17 09:07 04/26/17 09:07 04/26/17 09:07 Vital Signs/O2 Sat, Most Current Temp Pulse Resp BP Pulse Ox 97.7 F 101 20 130/83 98 04/28/17 11:41 04/28/17 11:41 04/28/17 06:38 04/28/17 11:41 04/28/17 11:41 Height: 5'6'' Weight: 208# NPO (# of Hours): > 8 hrs Pain Scale: 0 Pain Scale Used: Numeric (1 - 10) - HEENT Pupil (Motor): Pupils equal, EOMI Mallampati: III Teeth: Poor dentition Oral Opening: Greater than 3 - INFORMATION ASSURANCE OFFICER LOC: Oriented INFORMATION ASSURANCE OFFICER Motor: Normal RUE, Normal LUE, Normal RLE, Normal LLE, Normal Face INFORMATION ASSURANCE OFFICER Sensory: Normal: RUE, LUE, RLE, LLE, Face - Cardiac Rhythm: Regular Murmur: None JVD: No Carotid Bruit: No - Pulmonary Breath Sounds: bilateral Clear Respiratory Effort: Symmetrical Anesthesia Assess/Plan ASA Score: 3 Modified Lucio Scale for Level of Consciousness: Cooperative, oriented, and tranquil Anesthetic Plan: MAC Autologous Blood: Yes Monitoring Plan: Standard Monitors Recovery Plan: PACU
[2017-04-28] MEDS ORDERED: 0.9 % Sodium Chloride 500 ML IVC SCH (14:15)
--- NOTE | 2017-04-28 15:08 | Internal Med Progress Note ---
Date of Encounter: 04/28/17 Time of Encounter: 14:53 - Assessment and plan (1) Melena Current Visit: Yes Status: Acute Assessment and plan: Kale Knight is a 51-year-old male with past medical history diabetes and hypertension who presented to [facility] on 04/26/2017 with complaints of melena and chest pain. His placed in observation status for ACS rule out and GI evaluation. 1. Melena: Patient reports black stools for 2 days prior to presentation, with associated abdominal pain. Received IV PPI in ED. Hgb 14 on arrival and dropped to 11.8. Hemodynamically stable, no tachycardia no hypertension. 2016 EGD with gastritis. Continue IV PPI, monitor H&H. Transfuse for Hgb less than 7. Holding home eliquis. Colonoscopy. GI following 2. Atypical chest pain: with intermittent chest pain for 1 week prior to presentation. Serial troponins negative, EKG without acute ST changes. Stress test negative for ischemia, infarct. Do not suspect cardiac etiology, possibly secondary to GI source. 3. Essential hypertension: per hx. BP controlled. Continue home BP medications. Monitor BP and titrate PRN 4. Hyperkalemia: K 5.9. Received IV boluses and maintenance IV fluid. STAT potassium pending. 5. Elevated lactic acid: lactic acid 2.3. No obvious infectious source. Possibly secondary to home metformin. Treated with IV fluids. Repeat lactic acid normal. 6. 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 Treated with Lovenox and Coumadin for 6 months. Has IVC filter in place. With recent left upper extremity DVT on 01/2017. Started on Eliquis at that time. Evaluated by hematology who recommended lifelong anticoagulation due to 2 unprovoked DVTs. Home Eliquis on hold prior to arrival due to to planned cervical epidural injection. Discussed with Dr. Schwartz on 04/28/2017 and will resume Eliquis at discharge pending no bleeding. If patient is to have cervical epidural that he can be off anticoagulations for 3 days prior and resume anticoagulation the evening after procedure. 5. Diabetes: per hx. Hgb A1c 7%. Holding home oral medication. SSI. Monitor blood sugar and titrate PRN. 6. DVT prophylaxis: SCDs (2) Chest pain Current Visit: Yes Status: Acute Qualifiers: Chest pain type: unspecified Qualified Code(s): R07.9 - Chest pain, unspecified (3) Diabetes Current Visit: No Status: Chronic Qualifiers: Diabetes mellitus type: type 2 Diabetes mellitus complication status: without complication Diabetes mellitus skiff operator insulin use: without mcfp use Qualified Code(s): E11.9 - Type 2 diabetes mellitus without complications (4) HTN (hypertension) Current Visit: Yes Status: Acute Qualifiers: Hypertension type: essential hypertension Qualified Code(s): I10 - Essential (primary) hypertension - Subjective Interval history: Seen and examined at bedside. Laying in bed, appears comfortable. Says he does not feel well today, has a headache. No further melena/hematochezia. Regarding his eliquis, he tells me Dr. Schwartz approved him stopping for cervical epidural. Denies chest pain, no shortness of breath. - Constitutional Vitals: Temp Pulse Resp BP Pulse Ox 97.7 F 101 18 130/83 98 04/28/17 14:04 04/28/17 14:04 04/28/17 14:04 04/28/17 14:04 04/28/17 14:04 General appearance: Present: cooperative, A&O X 3, morbidly obese, no acute distress, answers questions appropriately - Head Head exam: Present: atraumatic, normocephalic - Eye Eye exam: Present: PERRL, conjuntiva pink, sclera anicteric Pupils: Present: PERRL - Neck Neck exam general surgery: Present: supple, trachea midline. Absent: lymphadenopathy - Respiratory Respiratory exam: Present: CTAB. Absent: accessory muscle use, rales, rhonchi, wheezes - Cardiovascular Cardiovascular exam: Present: RRR, +S1, +S2. Absent: diastolic murmur, gallop, rubs, systolic murmur - GI/Abdominal GI/Abdominal exam: Present: normal bowel sounds, soft, no peritoneal signs. Absent: distended, tenderness - Extremities Exam Extremities exam: Present: warm, radial pulses palpable and symmetrical. Absent : calf tenderness, cyanotic, pedal edema - Neurological Exam Neurological exam: Present: CN II-XII intact, oriented X3, no focal deficits. Absent: pronater drift, facial droop, speech deficit - Skin Skin exam: Present: dry, intact Internal Medicine: Result - Labs CBC & Chem 7: 04/28/17 04:11 04/28/17 04:11 Labs: Short CBC 04/27/17 04/28/17 Range/Units 15:42 04:11 WBC 5.3 (4.3-11.1) K/mcL Hgb 12.9 11.8 L (12.9-16.9) g/dL Hct 38.5 35.1 L (37.5-50.1) % Plt Count 154 (140-400) K/mcL BMP 04/27/17 04/28/17 15:42 04:11 Sodium 142 Potassium 4.4 D 4.0 Chloride 108 Carbon Dioxide 27 BUN 6 L Creatinine 0.82 Glucose 112 H Calcium 8.5 L Liver Function 04/28/17 Range/Units 04:11 Total Bilirubin 0.4 (0.2-1.2) mg/dL AST 19 (5-34) Units/L ALT 26 (0-55) Units/L Alkaline Phosphatase 47 (38-126) Units/L Albumin 3.2 L (3.5-5.0) g/dL - ABG Interpretation ABG results: PT/INR, D-dimer PT 10.4 Seconds (9.4-12.1) 04/26/17 09:35 Consult Discharge Plan - Plan Referrals: Thomas Garcia MD [Primary Care Provider] - 05/05/17 10:40 am
[2017-04-28] MEDS: Metoprolol XL (24 HR) Succ 50 MG TAB.ER.24H PO SCH (18:21)
[2017-04-29 03:18] LABS: Hemoglobin 11.7 g/dL (12.9-16.9); Mean Corpuscular HGB Conc 34.4 g/dL (31.6-35.5); Mean Corpuscular Hemoglobin 29.8 pg (28.0-33.3); Mean Corpuscular Volume 86.5 fL (83.0-100.0); Platelet Count 163 K/mcL (140-400); Red Blood Count 3.93 M/mcL (4.19-5.50); Red Cell Distribution Width 12.8 % (11.5-14.5)
[2017-04-29 03:37] LABS: Alanine Aminotransferase 25 Units/L (0-55); Albumin 3.1 g/dL (3.5-5.0); Albumin/Globulin Ratio 0.9 (1.1-2.2); Alkaline Phosphatase 53 Units/L (38-126); Aspartate Amino Transferase 19 Units/L (5-34); BUN/Creatinine Ratio 13 (6-26); Bilirubin,Total 0.3 mg/dL (0.2-1.2); Blood Urea Nitrogen 13 mg/dL (8-26); Carbon Dioxide 27 mEq/L (19-29); Chloride 105 mEq/L (98-109); Globulin 3.3 g/dL (2.4-3.5); Glucose 173 mg/dL (70-99); Osmolality,Calculated 294 (280-300); Potassium 4.4 mEq/L (3.5-4.5); Sodium 140 mEq/L (136-145); Total Protein 6.4 g/dL (6.0-8.3); eGFR For African Americans > 60 (> 60); eGFR For Non-African Americans > 60 (> 60)
[2017-04-29] MEDS: Insulin LISPRO 300 UNITS/3 ML VIAL SQ SCH (05:49)
[2017-04-29] MEDS: Pantoprazole 40 MG VIAL IVP SCH (05:49)
[2017-04-29 07:08] VITALS: BP 116/71
--- NOTE | 2017-04-29 09:26 | Discharge Summary ---
Date of Encounter: 04/29/17 Time of Encounter: 09:31 - Discharge Diagnosis (1) Melena Priority: Primary Status: Acute Comments: Kale Knight is a 51-year-old male with past medical history diabetes and hypertension who presented to [facility] on 04/26/2017 with complaints of melena and chest pain. His placed in observation status for ACS rule out and GI evaluation. He was discharged home on 04/29/2017 in stable condition with outpatient follow-up. 1. Melena: reported black stools for 2 days prior to presentation, with associated abdominal pain. IV PPI started in ED. Hgb 14 on arrival and dropped to 11.8. Remained hemodynamically stable, no tachycardia no hypertension. 04/27/2017 EGD showed gastritis, C-scope showed non-bleeding polyps and hemorrhoids (biopsies taken and pending). No recurrence of melena or hematochezia while inpatient. Discussed with Dr. Lombardo and will need outpatient capsule study and repeat C-scope in 3 years, otherwise no further GI testing/workup indicated at this time. Okay to resume Eliquis per discussion with Dr. Lombardo. Cont PPI. Recommend repeat CBC within 5-7 days with PCP. 2. Atypical chest pain: with intermittent chest pain for 1 week prior to presentation. Serial troponins negative, EKG without acute ST changes. Stress test negative for ischemia, infarct. No chest pain recurrence while inpatient. Possible GI etiology. Plan as noted above 3. Essential hypertension: per hx. BP controlled. Continue home BP medications. 5. Elevated lactic acid: lactic acid 2.3. No obvious infectious source. Possibly secondary to diabetes and home metformin. Treated with IV fluids. Repeat lactic acid normal. 6. 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 Treated with Lovenox and Coumadin for 6 months. Has IVC filter in place. With recent left upper extremity DVT on 01/2017. Started on Eliquis at that time. Evaluated by hematology who recommended lifelong anticoagulation due to 2 unprovoked DVTs. Home Eliquis on hold prior to arrival due to to planned cervical epidural injection. Resume Eliquis at discharge. Patient advised to discuss with hematology before discontinuing for invasive or surgical procedures. 5. Diabetes: per hx. Hgb A1c 7%. Resume home diabetes medication regimen. (2) Chest pain Priority: Primary Status: Acute Qualifiers: Chest pain type: unspecified Qualified Code(s): R07.9 - Chest pain, unspecified (3) Diabetes Priority: Primary Status: Chronic Qualifiers: Diabetes mellitus type: type 2 Diabetes mellitus complication status: without complication Diabetes mellitus shelter insulin use: without terminal gauger use Qualified Code(s): E11.9 - Type 2 diabetes mellitus without complications (4) HTN (hypertension) Priority: Primary Status: Acute Qualifiers: Hypertension type: essential hypertension Qualified Code(s): I10 - Essential (primary) hypertension - Discharge Medications Prescriptions: Melatonin 3 mg PO HS PRN #30 tablet PRN Reason: Insomnia Pantoprazole Sodium 40 mg PO DAILY #30 tablet. Home Medications: metFORMIN [Glucophage] 1,000 mg PO BID 10/06/15 [History] Metoprolol Succinate 100 mg PO QPM 01/27/17 [History] amLODIPine [Norvasc] 5 mg PO DAILY 01/27/17 [History] Acetaminophen [Tylenol] 650 mg PO Q6HR PRN tab 01/29/17 [Rx] Apixaban [Eliquis] 5 mg PO BID #60 tablet 01/29/17 [Rx] HYDROcodone/Acet 5/325 mg [[place] 5-325 mg] 1 tab PO Q6HR PRN #15 tab 01/29/17 [ Rx] Losartan/HCTZ [Hyzaar 50-12.5 Tablet] 1 each PO DAILY 02/22/17 [History] Amitriptyline HCl 100 mg PO HS 04/26/17 [History] Gabapentin [Neurontin] 600 mg PO TID 04/26/17 [History] Tizanidine HCl 4 mg PO Q8H 04/26/17 [History] Melatonin 3 mg PO HS PRN #30 tablet 04/29/17 [Rx] Pantoprazole Sodium 40 mg PO DAILY #30 tablet. 04/29/17 [Rx] Allergies/Adverse Reactions: 3 Allergy/AdvReac Type Severity Reaction Status Date / Time wasp vemon AdvReac See Uncoded 03/14/17 17:13 Comments Procedures/tests Complete & Pending: Procedures Performed prior 72 hours Category Date Time Status NM michelle perf SPECT multi [NM] Routine Exams 04/27/17 06:31 Taken EV echocardiogram Routine Y 04/26/17 17:35 Completed SP exercise nuclear stress Routine Y 04/27/17 06:30 Completed Date of admission: 04/26/17 13:12 Primary care physician: Thomas Garcia MD Consults: 04/26/17 15:35 Consult to Gastroenterology [CONS] Routine Consulting Provider: Sania Davidson Reason for Consult: Possible upper GI bleeding Call Completed: Yes 04/26/17 17:39 Consult to Pulmonology [CONS] Routine Consulting Provider: [facility] Reason for Consult: New Hemoptysis Call Completed: No Discharging clinician: Gertrudis Brannon Anticipated date of discharge: 04/29/17 - Patient Status Disposition: Home, Self-Care Condition: Good Functional capacity at discharge: independent ambulation Overall status at discharge: patient is back to baseline - Discharge Instructions Instructions: Apixaban (By mouth), Gastrointestinal Bleeding (DC), Capsule Endoscopy (DC) Follow Up With: [facility] [Provider Group] (We have web requested you an appointment with Dr. Kevin. They will be calling you with a follow up appointment in the next few days.) Thomas Garcia MD [Primary Care Provider] - 05/05/17 10:40 am Maurice Schwartz MD [Partnered Physician] - 05/11/17 8:40 am Additional Instructions: Follow Up Appointments: 1. Please keep appt with your primary care doctors as scheduled. 2. You will be contacted by Dr. Blackman office for follow-up appointment 3. Continue taking Eliquis as prescribed. Do not stop unless you actively bleeding or advised to do so by her gear straightener 4. Return to hospital if you experience recurrence of chest pain, shortness of breath or bleeding. - Diet and Activity Activity: increase activity as tolerated Diet: diabetic diet, low fat, low cholesterol Interval History: Seen and examined at bedside. Patient is sleeping, has no complaints. Says he wants to go home today. Discussed with Dr. Lombardo and no further GI testing needed at this time. He does recommend a capsule study which can be done outpatient. Okay to resume Eliquis as long as no active bleeding. Discussed with patient importance of taking anticoagulation due to risk of DVT recurrence. Also advised him to discuss with Dr. Schwartz before stopping anticoagulation prior to plan cervical epidural. Patient was initially agreeable to discharge and actually wanted to go home however after speaking with he was concerned about being discharged with his hemoglobin dropping and resuming Elquis. Patient and both stated they wanted him to stay in the hospital to be monitored. Advised patient that he was stable for discharge and he should return to the hospital if he noticed any active/overt bleeding. updated extensively via phone. Patient and his verbally expressed frustration and concern the patient was being discharged. Discussed with patient fiorella gongora who was willing to discuss with patient and however patient changed his mind again and decided that he did want to be discharged and left. Hospital course: See assessment and plan for hospital course - Time Spent with Patient Total time spent providing and/or coordinating discharge services: - Constitutional Vitals: Temp Pulse Resp BP Pulse Ox 97.4 F L 96 18 116/71 96 04/29/17 07:03 04/29/17 07:03 04/29/17 07:03 04/29/17 07:03 04/29/17 07:03 General appearance: Present: cooperative, A&O X 3, morbidly obese, no acute distress, answers questions appropriately - Head Head exam: Present: atraumatic, normocephalic - Eye Eye exam: Present: PERRL, conjuntiva pink, sclera anicteric Pupils: Present: PERRL - Neck Neck exam general surgery: Present: supple, trachea midline. Absent: lymphadenopathy - Respiratory Respiratory exam: Present: CTAB. Absent: accessory muscle use, rales, rhonchi, wheezes - Cardiovascular Cardiovascular exam: Present: RRR, +S1, +S2. Absent: diastolic murmur, gallop, rubs, systolic murmur - GI/Abdominal GI/Abdominal exam: Present: normal bowel sounds, soft, no peritoneal signs. Absent: distended, tenderness - Extremities Exam Extremities exam: Present: warm, radial pulses palpable and symmetrical. Absent : calf tenderness, cyanotic, pedal edema - Neurological Exam Neurological exam: Present: CN II-XII intact, oriented X3, no focal deficits. Absent: pronater drift, facial droop, speech deficit - Skin Skin exam: Present: dry, intact
== END 2017-04-29 11:02 | disposition home or self-care (01) ==
LOC: EMEROO 09:05 → 3BNU 09:05
PROVIDERS: ADMIT Family Medicine; ATTEND Registered Nurse
PROC: ENDOEBX (2017-04-27 13:45)

== ENCOUNTER 2017-08-04 00:34 | Observation (INO) ==
[2017-08-04] MEDS ORDERED: Naloxone 0.4 MG/ML INJ IVP PRN (03:05)
[2017-08-04] MEDS ORDERED: Nitroglycerin 0.4 MG TAB.SUBL SL PRN (03:08)
[2017-08-04] MEDS ORDERED: Acetaminophen 325 MG TABLET PO PRN (03:08)
[2017-08-04] MEDS ORDERED: *HR* Dextrose 50 % in Water (Syg) 50 ML SYRINGE IVP PRN (03:10)
[2017-08-04] MEDS ORDERED: D5% in Water 1,000 ML IVC PRN (03:10)
[2017-08-04] MEDS ORDERED: Dextrose Gel 15 GM/37.5 ML TUBE PO PRN ×2 (03:10)
[2017-08-04] MEDS ORDERED: Melatonin 3 MG TABLET PO PRN (03:11)
[2017-08-04] MEDS ORDERED: 0.9 % Sodium Chloride 1,000 ML IVC SCH (03:15)
--- NOTE | 2017-08-04 03:21 | Internal Med History&Physical ---
Date of Encounter: 08/04/17 Time of Encounter: 02:30 Assessment and Plan (1) Chest pain Current visit: No Status: Acute Etiology is undertermined. CTA has been done, PE is ruled out and seems aortic dissection unlikely. Need to r/o CAD. - Place pt on cardiac monitoring - track serial troponin - Echo in AM - Pain control - Pt may need a stress test to r/o CAD, however, he has current pain now, may consider when pt is pain free. Qualifiers: Chest pain type: precordial pain Qualified Code(s): R07.2 - Precordial pain (2) DVT prophylaxis Current visit: No Status: Acute Pt is on Eliquis (3) Diabetes Current visit: No Status: Acute Place pt on SSI Qualifiers: Diabetes mellitus type: type 2 Diabetes mellitus complication status: without complication Diabetes mellitus jail insulin use: without local company intermodal truck driver use Qualified Code(s): E11.9 - Type 2 diabetes mellitus without complications (4) HTN (hypertension) Current visit: No Status: Acute Cont home med, increase amlodipine to 10mg daily, hold losartan and HCTZ b/o ALIREZA Qualifiers: Hypertension type: essential hypertension Qualified Code(s): I10 - Essential (primary) hypertension (5) Acute renal failure Current visit: Yes Status: Acute Cr 1.34 in [facility], mildly elevated from baseline. Pt had CTA in [facility]. Will give IVF at 75ml/hour. Hold Losartan and HCTZ, avoid nephrotoxic meds. Follow renal function. Qualifiers: Acute renal failure type: unspecified Qualified Code(s): N17.9 - Acute kidney failure, unspecified (6) EDEN (obstructive sleep apnea) Current visit: Yes Status: Acute Place pt on CPAP (7) Hx pulmonary embolism Current visit: Yes Status: Acute Pt has heterozygous Factor V leiden, on Eliquis and had IVC filter. Repeat CTA today shows no PE. Internal Medicine - H&P: HPI Chief complaint: Chest pain Admitted From: Home Plans for Post Hospital Care: Home History of present illness: Mr. Knight is a 52 year old male with Hx of HTN, DM, chronic back and hip pain, heterozygous Factor V Leiden with hx of PE and DVT on Eliquis and s/p IVC filter , present to [facility] for chest pain. Pt said he has on and off chest for 2-3 weeks. The pain located cross his chest, pressure like, 6-8/10, radiated to left neck and shoulder. Pt has SOB when he has chest pain. Denies nausea or diaphoresis. Every episode of chest pain last about 2 hour and intermittent on a less than once a day frequency. In [facility], CTA shows negative to PE, two sets of troponin with 2 hour apart are negative, EKG unremarkable. Pt was transfered to our hospital for further management. Pt report frequent fall but denies syncope or dizziness, he thought his fall is due to his weak leg. Past Med Surg Social Fam HX - Past Medical History Medical history: DVT, diabetes, hypertension, kidney stones, other Psychiatric history: no psych history - Past Surgical History Surgical History: herniorrhaphy, IVC Filter, vasectomy, other - Social History Smoking Status: Never smoker Smokeless Tobacco Status: No Alcohol use: none Drug use: none - Family History Father Living Status: Hx Family Cardiac Disorders: Yes ([place]) Mother Living Status: Hx Family Musculoskeletal Disorders: Yes (Elda Gehrigs disease) Internal Medicine - H&P: Meds metFORMIN [Glucophage] 1,000 mg PO BID 10/06/15 [History] Metoprolol Succinate 100 mg PO QPM 01/27/17 [History] amLODIPine [Norvasc] 5 mg PO DAILY 01/27/17 [History] Apixaban [Eliquis] 5 mg PO BID #60 tablet 01/29/17 [Rx] Amitriptyline HCl 100 mg PO HS 04/26/17 [History] Gabapentin [Neurontin] 600 mg PO TID 04/26/17 [History] Tizanidine HCl 4 mg PO Q8H 04/26/17 [History] Melatonin 3 mg PO HS PRN #30 tablet 04/29/17 [Rx] Losartan/Hydrochlorothiazide [Losartan-Hctz 100-12.5 mg Tab] 1 each PO DAILY 02/11 [History] 3 Allergy/AdvReac Type Severity Reaction Status Date / Time wasp vemon AdvReac See Uncoded 05/04/17 10:50 Comments All Systems PM: A 10-system review of systems was performed and is negative for pertinent findings except as documented above in the HPI. - Constitutional Vitals: Temp Pulse Resp BP Pulse Ox 98.1 F 118 16 157/95 94 08/04/17 03:06 08/04/17 03:06 08/04/17 03:06 08/04/17 03:06 08/04/17 03:06 General appearance: Present: A&O X 3, no acute distress, answers questions appropriately Internal Med - H&P Results - EKG Data -: EKG Interpreted by Myself EKG shows normal: sinus rhythm Rate: tachycardia
[2017-08-04] MEDS: *HR* HYDROcodone/Acet 5/325 mg TABLET PO PRN ×2 (03:44→09:50)
[2017-08-04 05:13] LABS: Basophils % 0.5 %; Eosinophils # 0.1 K/mcL (0.0-0.6); Eosinophils % 1.9 %; Hemoglobin 13.3 g/dL (12.9-16.9); Immature Granulocytes % 0.4 % (0-4); Lymphocytes # 1.9 K/mcL (0.6-4.6); Mean Corpuscular HGB Conc 33.3 g/dL (31.6-35.5); Mean Corpuscular Hemoglobin 28.8 pg (28.0-33.3); Mean Corpuscular Volume 86.6 fL (83.0-100.0); Monocytes # 0.3 K/mcL (0.0-1.3); Monocytes % 5.7 %; Neutrophils # 3.3 K/mcL (1.6-8.9); Platelet Count 190 K/mcL (140-400); Red Blood Count 4.62 M/mcL (4.19-5.50); Red Cell Distribution Width 12.1 % (11.5-14.5); Segmented Neutrophils % 58.5 %
[2017-08-04 05:21] LABS: BUN/Creatinine Ratio 17 (6-26); Blood Urea Nitrogen 18 mg/dL (6-20); Calcium 9.1 mg/dL (8.6-10.3); Carbon Dioxide 27 mEq/L (23-29); Chloride 100 mEq/L (98-107); Glucose 289 mg/dL (70-105); Magnesium 1.5 mg/dL (1.6-2.6); Osmolality,Calculated 294 (280-300); Potassium 3.9 mEq/L (3.5-5.1); Sodium 136 mEq/L (136-145); eGFR For African Americans > 60 (> 60); eGFR For Non-African Americans > 60 (> 60)
[2017-08-04] MEDS: tiZANidine 4 MG TABLET PO SCH ×2 (05:30→13:20)
[2017-08-04] MEDS: Gabapentin 300 MG CAPSULE PO SCH ×2 (08:21→14:18)
[2017-08-04] MEDS: Insulin LISPRO 300 UNITS/3 ML VIAL SQ SCH ×2 (08:24→13:19)
[2017-08-04] MEDS ORDERED: amLODIPine 5 MG TABLET PO SCH ×2 (09:00)
[2017-08-04] MEDS ORDERED: NON-FORMULARY MEDICATION 1 EACH EACH (Losartan/Hydrochlorothiazide [Losartan-Hctz 100-12.5 PO SCH (09:00)
[2017-08-04] MEDS ORDERED: Apixaban 5 MG TABLET PO SCH (09:00)
[2017-08-04] MEDS ORDERED: Regadenoson 0.4 MG/5 ML SYRINGE IVP ONE (10:27)
--- NOTE | 2017-08-04 11:49 | Cardiology Consult Note ---
Date of Encounter: 08/04/17 Time of Encounter: 11:49 Assessment and Plan Discussion w patient/family: The assessment and plan as outlined above was discussed with the patient and/or family members who expressed understanding and agreement. All questions were answered. Thank you for involving us in the care of your patient. Please call with any questions. History of Present Illness History of present illness: Mr. Knight is a 52 year old male Past Med Surg Social Fam HX - Past Medical History Medical history: DVT, diabetes, hypertension, kidney stones, other Psychiatric history: no psych history - Past Surgical History Surgical History: herniorrhaphy, IVC Filter, vasectomy, other - Social History Smoking Status: Never smoker Smokeless Tobacco Status: No Alcohol use: none Drug use: none - Family History Father Living Status: Hx Family Cardiac Disorders: Yes ([place]) Mother Living Status: Hx Family Musculoskeletal Disorders: Yes (Elda Gehrigs disease) Medications and Allergies metFORMIN [Glucophage] 1,000 mg PO BID 10/06/15 [History] Metoprolol Succinate 100 mg PO QPM 01/27/17 [History] amLODIPine [Norvasc] 5 mg PO DAILY 01/27/17 [History] Apixaban [Eliquis] 5 mg PO BID #60 tablet 01/29/17 [Rx] Amitriptyline HCl 100 mg PO HS 04/26/17 [History] Gabapentin [Neurontin] 600 mg PO TID 04/26/17 [History] Tizanidine HCl 4 mg PO Q8H 04/26/17 [History] Melatonin 3 mg PO HS PRN #30 tablet 04/29/17 [Rx] Losartan/Hydrochlorothiazide [Losartan-Hctz 100-12.5 mg Tab] 1 each PO DAILY 02/11 [History] Pantoprazole Sodium [Pantoprazole Sodium] 40 mg PO DAILY 08/04/17 [History] 3 Allergy/AdvReac Type Severity Reaction Status Date / Time wasp vemon Allergy Anaphylaxis Uncoded 08/04/17 07:30 All Systems Review: A 10-system review of systems was performed and is negative for pertinent findings except as documented above in the HPI. Physical Examination Vital Signs, Last 4 Hours Temp Pulse Resp BP Pulse Ox 08/04/17 11:30 98.0 F 111 18 161/96 96 08/04/17 10:47 97.9 F 101 20 128/84 95 Results 08/04/17 04:40 08/04/17 04:40 Lab Results 08/04/17 08/04/17 08/04/17 04:40 04:40 04:40 WBC 5.7 Hgb 13.3 Hct 40.0 Plt Count 190 Sodium 136 Potassium 3.9 Chloride 100 Carbon Dioxide 27 BUN 18 Creatinine 1.03 Glucose 289 H Calcium 9.1 Magnesium 1.5 L Troponin I < 0.03 08/04/17 09:43 WBC Hgb Hct Plt Count Sodium Potassium Chloride Carbon Dioxide BUN Creatinine Glucose Calcium Magnesium Troponin I < 0.03 Consult Discharge Plan - Plan Referrals: Nehemiah Batista DO [Primary Care Provider] -
[2017-08-04] MEDS ORDERED: Isosorbide MONOnitrate (24 HR) 30 MG TAB.ER.24H PO SCH (13:30)
--- NOTE | 2017-08-04 13:46 | Cardiology Consult Note ---
Date of Encounter: 08/04/17 Time of Encounter: 12:00 Assessment and Plan (1) Chest pain Current Visit: No Status: Acute Per cardiology: -Patient reports atypical chest pain, occurs at rest and with stressful situations. -Troponins negative x1 [facility], negative x2 [facility]. -ECG with no acute ischemic changes. -TTE 03/2017 with LVEF 65%, no segmental wall motion abnormalities. -04/2017 Nuclear stress negative for ischemia or infarct. -Of note, reports blood in stool, urine, and sputum. On anticoagulation. -ON beta kaden -No urgent need for LHC with negative troponins and no ECG changes. Not a candidate for invasive cardiac work up due to bleeding. -Will start statin and imdur. Not on ASA due to bleeding. -Anticipate cardiology sign off. Will arrange outpatient cardiac follow up. Qualifiers: Chest pain type: other chest pain Qualified Code(s): R07.89 - Other chest pain; R07.8 - Other chest pain (2) Sinus tachycardia Current Visit: Yes Status: Acute Per cardiology: -ECGs with ST. Repeat ECG reviewed with and noted to be ST, no atrial fibrillation/flutter noted. -On toprol. -Average HR previous 12 hours noted to be 107. -Will increase beta kaden. Discussion w patient/family: The assessment and plan as outlined above was discussed with the patient and/or family members who expressed understanding and agreement. All questions were answered. Thank you for involving us in the care of your patient. Please call with any questions. Discussed and reviewed with . History of Present Illness Consult date: 08/04/17 Requesting physician: Lauren Washington Consult reason: chest pain Chief complaint: chest pain History of present illness: Mr. Knight is a 52 year old male with a relevant past medical history of HTN, hyperlpiidemia, EDEN, DM, Factor V leiden, DVTs, IVC filter, depression, anxiety. Patient presented to outside facility with complaints of chest pain. Patient was then transferred to [facility] [place]. Patient has multiple complaints. Patient reports that he has been on eliquis for years. Pateint states he has now developed bleeding on eliquis. Pateint report blood in urine, stool, and sputum. has pictures on her phone of blood that patient coughed up. Patient reports falling multiple times per day. Reports constant dizziness and then he just falls. states after fall the other day, he has been incontinent of bowel and bladder. Patient and also report chest/abdominal pain after eating. Also report nausea and vomiting after eating. Pateint and concerned regarding gallblader. Patient reports his chest pain occurs at rest and is usually associated with some kind of emotional or mental stress. Pateint denies exertional symptoms. Patient reports klonopin helps his chest pain and he was wanting klonopin to be given inpatient. Patient states chest pain had resolved, however during discussion of medical issues stated he had 2/ 10 chest pain. Regarding complaints of bleeding on anticoagulation, frequent falls with reported loss of bowel and bladder, abdominal pain with nausea and vomiting, and anxiety, I discussed with the hospitalist CHEMICAL PROJECT ENGINEERAbraham. Past Med Surg Social Fam HX - Past Medical History Attestation: Yes The following information was validated with the patient. Source: patient, old records reviewed, obtained from family Medical history: DVT, diabetes, hypertension, kidney stones, other Psychiatric history: anxiety, depression - Past Surgical History Surgical History: herniorrhaphy, IVC Filter, vasectomy, other - Social History Smoking Status: Never smoker Smokeless Tobacco Status: No Alcohol use: none Drug use: none - Family History Father Living Status: Hx Family Cardiac Disorders: Yes ([place]) Mother Living Status: Hx Family Musculoskeletal Disorders: Yes (Elda Gehrigs disease) Medications and Allergies metFORMIN [Glucophage] 1,000 mg PO BID 10/06/15 [History] Metoprolol Succinate 100 mg PO QPM 01/27/17 [History] amLODIPine [Norvasc] 5 mg PO DAILY 01/27/17 [History] Apixaban [Eliquis] 5 mg PO BID #60 tablet 01/29/17 [Rx] Amitriptyline HCl 100 mg PO HS 04/26/17 [History] Gabapentin [Neurontin] 600 mg PO TID 04/26/17 [History] Tizanidine HCl 4 mg PO Q8H 04/26/17 [History] Melatonin 3 mg PO HS PRN #30 tablet 04/29/17 [Rx] Losartan/Hydrochlorothiazide [Losartan-Hctz 100-12.5 mg Tab] 1 each PO DAILY 02/11 [History] Pantoprazole Sodium [Pantoprazole Sodium] 40 mg PO DAILY 08/04/17 [History] 3 Allergy/AdvReac Type Severity Reaction Status Date / Time wasp vemon Allergy Anaphylaxis Uncoded 08/04/17 07:30 All Systems Review: A 10-system review of systems was performed and is negative for pertinent findings except as documented above in the HPI. - Constitutional Constitutional: frequent falls - Cardiovascular Cardiovascular: as per HPI, chest pain at rest - Respiratory Respiratory: hemoptysis - Gastrointestinal Gastrointestinal: abdominal pain, melena, nausea - Genitourinary Genitourinary: hematuria - Psychiatric Psychiatric: anxiety, depression Physical Examination Vital Signs, Last 4 Hours Temp Pulse Resp BP Pulse Ox 08/04/17 11:30 98.0 F 111 18 161/96 96 08/04/17 10:47 97.9 F 101 20 128/84 95 General: Conversant, No Apparent Distress HEENT: Atraumatic, Normocephaly, Mucus Membranes Moist Neck: No JVD, Normal carotid pulses Cardiac: Reg Rate and Rhythm, Normal S1 and S2, No Murmur Lungs: Normal Breath Sounds, No Wheeze, Rales, Rhonchi Neuro: Alert and responsive, No focal deficits noted Abdomen: Soft, Non-Tender Skin: No rashes noted on visualized skin Musculoskeletal: No Chest Wall Tenderness Extremities: No Clubbing, No Cyanosis, No Edema, Normal Pulses Results 08/04/17 04:40 08/04/17 04:40 Lab Results Active Medications Acetaminophen (Tylenol) 650 mg PO Q6HR PRN PRN Reason: Fever Stop: 02/03/18 03:09 Last Admin: 08/04/17 13:19 Dose: 650 mg Hydrocodone Bitart/Acetaminophen ([place] 5-325 Mg) 1 tab PO Q6HR PRN PRN Reason: Pain Stop: 02/03/18 03:10 Last Admin: 08/04/17 09:50 Dose: 1 tab Amitriptyline HCl (Elavil) 100 mg PO HS RUSLAN Stop: 02/03/18 21:01 Amlodipine Besylate (Norvasc) 10 mg PO DAILY RUSLAN PRN Reason: Protocol Stop: 02/03/18 09:01 Last Admin: 08/04/17 08:20 Dose: 10 mg Apixaban (Eliquis) 5 mg PO BID RUSLAN Stop: 02/03/18 09:01 Last Admin: 08/04/17 08:20 Dose: 5 mg Atorvastatin Calcium (Lipitor) 40 mg PO HS RUSLAN Stop: 02/03/18 21:01 Dextrose/Water (Dextrose 50% (Syg)) 25 ml IVP AD PRN PRN Reason: Hypoglycemia Stop: 02/03/18 03:11 Gabapentin (Neurontin) 600 mg PO TID RUSLAN Stop: 02/03/18 09:01 Last Admin: 08/04/17 08:21 Dose: 600 mg Glucagon (Glucagen) 1 mg IM ONCE PRN PRN Reason: Hypoglycemia Stop: 02/03/18 03:11 Glucose (Gluctose) 15 gm PO ONCE PRN PRN Reason: Hypoglycemia Stop: 02/03/18 03:11 Glucose (Gluctose) 30 gm PO ONCE PRN PRN Reason: Hypoglycemia Stop: 02/03/18 03:11 Dextrose (Dextrose 5%) 1,000 mls @ 100 mls/hr IVC .Q10H PRN PRN Reason: HYPOGLYCEMIA Stop: 02/03/18 03:11 Sodium Chloride (0.9 % Sodium Chloride) 1,000 mls @ 75 mls/hr IVC .[id number] [facility] Stop: 02/03/18 03:16 Last Admin: 08/04/17 03:34 Dose: 75 mls/hr Insulin Human Lispro (Humalog) 0 units SQ HS RUSLAN PRN Reason: Protocol Stop: 02/03/18 21:01 Insulin Human Lispro (Humalog) 0 units SQ TIDAC RUSLAN PRN Reason: Protocol Stop: 02/03/18 07:31 Last Admin: 08/04/17 13:19 Dose: Not Given Isosorbide Mononitrate (Imdur) 30 mg PO DAILY [facility] Stop: 02/03/18 13:31 Melatonin (Melatonin) 3 mg PO HS PRN PRN Reason: Insomnia Stop: 02/03/18 03:12 Metoprolol Succinate (Toprol Xl) 100 mg PO QPM [facility] Stop: 02/03/18 18:01 Naloxone HCl (Narcan) 0.4 mg IVP Q2MIN PRN PRN Reason: SEE COMMENTS Stop: 02/03/18 03:06 Nitroglycerin (Nitroglycerin) 0.4 mg SL Q5MIN PRN PRN Reason: Chest Pain Stop: 02/03/18 03:09 Last Admin: 08/04/17 13:21 Dose: 0.4 mg Tizanidine HCl (Zanaflex) 4 mg PO Q8H RUSLAN Stop: 02/03/18 06:01 Last Admin: 08/04/17 13:20 Dose: 4 mg Laboratory Tests 04/28/17 04/29/17 06/08/17 04:11 02:42 13:58 Hgb 11.8 L 11.7 L 15.1 Creatinine Troponin I 08/04/17 08/04/17 08/04/17 04:40 04:40 04:40 Hgb 13.3 Creatinine 1.03 Troponin I < 0.03 08/04/17 09:43 Hgb Creatinine Troponin I < 0.03 - Imaging and Cardiology Chest Xray: report reviewed Stress Test: report reviewed Echo: report reviewed - EKG Interpretation EKG results cardiology: personally reviewed (ECG with ST, HR 111.), other ( Telemetry reviewed with average HR previous 12 hours noted to be 107, ST. PVCs noted.) Consult Discharge Plan - Plan Instructions: Meal Planning with Diabetes Exchanges (GEN) Referrals: Nehemiah Batista DO [Primary Care Provider] -
[2017-08-04] MEDS ORDERED: Metoprolol XL (24 HR) Succ 50 MG TAB.ER.24H PO SCH ×2 (14:15→18:00)
--- NOTE | 2017-08-04 14:43 | Discharge Summary ---
Date of Encounter: 08/04/17 Time of Encounter: 14:41 - Discharge Diagnosis (1) ACS (acute coronary syndrome) Priority: Primary Status: Acute Comments: Patient presented with chest pain Cardiology consult Negative biomarkers with no changes on EKG Sinus tachycardia Recent TTE normal EF and wall motion and stress with no ischemia No urgent Cardiology will follow up with the patient as an outpatient (2) Chest pain Priority: Primary Status: Acute Comments: please see above Qualifiers: Chest pain type: other chest pain Qualified Code(s): R07.89 - Other chest pain; R07.8 - Other chest pain (3) Diabetes Priority: Secondary Status: Chronic Comments: Resume home meds on discharge Qualifiers: Diabetes mellitus type: type 2 Diabetes mellitus complication status: without complication 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: without assisted use Qualified Code(s): E11.9 - Type 2 diabetes mellitus without complications (4) HTN (hypertension) Priority: Secondary Status: Chronic Comments: Cardiology follows and medications were adjusted as appropriate for blood pressure and tachycardia Qualifiers: Hypertension type: essential hypertension Qualified Code(s): I10 - Essential (primary) hypertension (5) EDEN (obstructive sleep apnea) Priority: Secondary Status: Chronic Comments: Patient should continue home regime for his sleep apnea - Discharge Medications Prescriptions: Isosorbide MONOnitrate (24 HR) [Imdur] 30 mg PO DAILY #30 tab.er.24h Metoprolol XL (24 HR) Succ [Toprol Xl] 125 mg PO DAILY #30 tab.er.24h Home Medications: metFORMIN [Glucophage] 1,000 mg PO BID 10/06/15 [History] amLODIPine [Norvasc] 5 mg PO DAILY 01/27/17 [History] Amitriptyline HCl 100 mg PO HS 04/26/17 [History] Gabapentin [Neurontin] 600 mg PO TID 04/26/17 [History] Tizanidine HCl 4 mg PO Q8H 04/26/17 [History] Melatonin 3 mg PO HS PRN #30 tablet 04/29/17 [Rx] Isosorbide MONOnitrate (24 HR) [Imdur] 30 mg PO DAILY #30 tab.er.24h 08/04/17 [ Rx] Losartan/Hydrochlorothiazide [Losartan-Hctz 100-12.5 mg Tab] 1 each PO DAILY 02/11 [History] Metoprolol XL (24 HR) Succ [Toprol Xl] 125 mg PO DAILY #30 tab.er.24h 08/04/17 [ Rx] Pantoprazole Sodium 40 mg PO DAILY 08/04/17 [History] Allergies/Adverse Reactions: 3 Allergy/AdvReac Type Severity Reaction Status Date / Time jayleen winter Allergy Anaphylaxis Uncoded 08/04/17 07:30 Procedures/tests Complete & Pending: Procedures Performed prior 72 hours Category Date Time Status EKG [ECG 12 lead ECG] [ECG] Routine Y 08/04/17 14:04 Ordered Date of admission: 08/04/17 01:52 Primary care physician: Nehemiah Batista DO Consults: 08/04/17 11:20 Consult to Cardiology [CONS] Routine Comment: Consulting Provider: Cardiology Lety Reason for Consult: abnormal stress, known history CAD Time Notified: 13:29 Call Completed: Yes 08/04/17 12:18 Consult to Oncology [CONS] Routine Consulting Provider: Oncology [facility] Reason for Consult: factor 5 on eliquis, states he is bleeding Time Notified: 12:19 Call Completed: Yes Discharging clinician: Lauren Washington Anticipated date of discharge: 08/04/17 - Patient Status Disposition: Home, Self-Care Functional capacity at discharge: independent ambulation Overall status at discharge: patient is back to baseline - Discharge Instructions Instructions: Chest Pain (GEN), Meal Planning with Diabetes Exchanges (GEN), How to Stop Smoking, Waiter/Waitress Club (GEN) Follow Up With: Nehemiah Batista DO [Primary Care Provider] - Additional Instructions: Pt given education on new meds with scripts given. Aware of make new PCP appointment in 7-10 days and to f/u with cardio and hematology - Diet and Activity Activity: resume usual activities as tolerated Diet: advance to your usual diet Interval History: Patient is sitting up in the bed, his is at the bedside, he is in no distress. He has no chest pain at this time. Vital signs are stable. He has tolerated his diet. No fever, chills, blood pressure problems. He remains slightly tachycardia but new medications on board. Hospital course: Mr. Knight is a 52 year old male who presented to the hospital with atypical chest pain occurred at rest and with stressful situations. He also reported some blood in his urine and sputum and is on anticoagulation although he self doses and is not compliant with his ordered dosing. He is treated for factor V by oncology. Per cardiology's records TTE 03/2017 with LVEF of 65% and no segmental wall motion abnormalities. Nuclear stress test negative for ischemia or infarct from 04/2017 He is on a beta kaden Their plan is no urgent need for left heart catheter with negative troponins and no EKG changes. He is not a candidate for invasive cardiac workup due to bleeding We will start a statin and Imdur were. He is not on aspirin due to bleeding Cardiology will arrange for outpatient follow-up Cardiology reviewed his previous 12 hour heart rate which was noted to be 107 and increased his beta kaden on discharge no atrial fibrillation or flutter was noted This was all discussed with the family Regarding his bleeding oncology was consult dated today once his anticoagulation held until he follows up in the office they will arrange outpatient follow-up for him with somebody other than Dr. Schwartz, he does not wish to see Dr. Schwartz. The patient was requesting Klonopin on discharge. He states his last PCP did not write it for him and he was seeking a new PCP. I referred him back to his PCP for further Klonopin prescriptions. He also is complaining of low back pain , I referred him back to his pain clinic for further management of this ongoing chronic problem. The mentioned that he might have some gallbladder disease, I referred him back to his PCP. His questions were answered, he was provided prescriptions for his new medications ordered by cardiology and he was instructed on follow-up with both oncology and cardiology. His is in the room and verbalized understanding as well as the patient. showed pictures of some blood in his sputum. According to oncology he has had issues with bleeding in the past. Defer to oncology for further management. - Time Spent with Patient Total time spent providing and/or coordinating discharge services: - Constitutional Vitals: Temp Pulse Resp BP Pulse Ox 98.0 F 130 18 134/90 96 08/04/17 11:30 08/04/17 14:08/04/17 11:30 08/04/17 14:08/04/17 11:30 General appearance: Present: cooperative, A&O X 3, no acute distress, obese, answers questions appropriately - Head Head exam: Present: atraumatic, normocephalic - Eye Eye exam: Present: PERRL, conjuntiva pink, sclera anicteric Pupils: Present: PERRL - Neck Neck exam general surgery: Present: supple, trachea midline. Absent: lymphadenopathy - Respiratory Respiratory exam: Present: CTAB. Absent: accessory muscle use, rales, rhonchi, wheezes - Cardiovascular Cardiovascular exam: Present: RRR, +S1, +S2, tachycardia. Absent: diastolic murmur, gallop, rubs, systolic murmur - GI/Abdominal GI/Abdominal exam: Present: normal bowel sounds, soft, no peritoneal signs. Absent: distended, tenderness - Extremities Exam Extremities exam: Present: warm, radial pulses palpable and symmetrical. Absent : calf tenderness, cyanotic, pedal edema - Neurological Exam Neurological exam: Present: CN II-XII intact, oriented X3, no focal deficits, strengths equal and symetr throughout. Absent: pronater drift, facial droop, speech deficit - Skin Skin exam: Present: dry, intact, warm
[2017-08-04 15:45] VITALS: BP 122/84
[2017-08-04] MEDS ORDERED: Insulin LISPRO 300 UNITS/3 ML VIAL SQ SCH (21:00)
--- NOTE | 2017-08-05 10:00 | Electrocardiograph Report ---
[place] [id number] Test Date: 2017-08-04 Pat Name: Kale Knight Department: 113 Room: 3B Gender: M Table Hand: KELSEY : 1965 Requested By: Tawanna Meyer Order Number: [id number] Reading MD: Avni Burnett DO Measurements Intervals [place] Rate: 116 P: NC: 0 QRS: 43 QRSD: 83 T: 43 QT: 288 QTc: 357 Interpretive Statements SINUS TACHYCARDIA NONSPECIFIC ST-T CHANGES Electronically Signed On 08-05-2017 9:58:48 EST by Avni Burnett DO
== END 2017-08-04 17:00 | disposition home or self-care (01) ==
LOC: 3BNU
PROVIDERS: ADMIT Internal Medicine; ATTEND Registered Nurse

== ENCOUNTER 2017-11-02 18:52 | Inpatient (IN) ==
[2017-11-02] MEDS ORDERED: *HR* HYDROmorphone (PF) 1 MG/ML SYRINGE IVP ONE ×3 (19:50→23:21)
[2017-11-02] MEDS ORDERED: Ondansetron 4 MG/2 ML VIAL IVP ONE (19:50)
--- NOTE | 2017-11-02 19:51 | Emergency Department Note ---
Disposition Clinical Impression: Factor V Leiden DVT (deep venous thrombosis) Qualifiers: DVT location: lower extremity Affected thrombotic vein of extremity: unspecified vein of extremity Chronicity: chronic Laterality: unspecified laterality Qualified Code(s): I82.509 - Chronic embolism and thrombosis of unspecified deep veins of unspecified lower extremity Pulmonary embolus Qualifiers: Pulmonary embolism type: other Chronicity: acute Acute cor pulmonale presence: without acute cor pulmonale Qualified Code(s): I26.99 - Other pulmonary embolism without acute cor pulmonale Disposition: Admitted As Inpatient Condition: Fair Referrals: Colin Wiley DO [Primary Care Provider] - Forms: ED Satisfaction Letter General Adult HPI - General Chief complaint: ED Extremity Problem,Nontraumatic Stated complaint: Cough, R leg pain, L arm pain Time Seen by Provider: 11/02/17 19:20 Source: patient Limitations: no limitations Nursing Notes Reviewed: Yes Vital Signs Reviewed: Yes - History of Present Illness HPI Narrative: Patient presents to the emergency department for further evaluation and treatment of DVT and PE. Patient states that he has a history of factor V Leiden. Patient has had previous blood clots in the lower extremities as well as the left upper extremity. He previously received DVT filter which has been in place. He went to see the [facility] to placed it in order to possibly have it removed. They did further testing showing I lateral lower extremity DVTs as well as increased clot burden of the lungs. Have recommended anticoagulation treatment however the patient was headed to his honeymoon and refuses treatment. Patient has returned from his honeymoon is has worsening left upper extremity pain as well as shortness of breath and now complains of headache. The patient is willing to stay for treatment. He previously saw Dr. 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 He is been on Coumadin in the past but it was refused to be started for unknown reason. The patient states that his filter has gone into the venous wall. He has had intermittent episodes of bleeding per rectum. These have been investigated in [address] Kevin. He had nonbleeding polyps as well as a nonbleeding hemorrhoid. He states this was related more to his hemorrhoid per the physicians. The patient has presumed DVTs and PEs. Blood work will be performed in order to starting cycle regulation. Heparin will likely be started as with his history of bleeding easily be reversed. The previous records will be obtained. Left upper extremity ultrasound will be obtained. CT of the head secondary to headaches and starting blood thinners. Pain Scale: 8 - Related Data Home Medications Medication Instructions Recorded Confirmed metFORMIN [Glucophage] 1,000 mg PO BID 10/06/15 09/22/17 amLODIPine [Norvasc] 5 mg PO DAILY 01/27/17 09/22/17 Amitriptyline HCl 100 mg PO HS 04/26/17 09/22/17 Gabapentin [Neurontin] 600 mg PO TID 04/26/17 09/22/17 Tizanidine HCl 4 mg PO Q8H PRN 04/26/17 09/22/17 Losartan/Hydrochlorothiazide 1 each PO DAILY 08/04/17 09/22/17 [Losartan-Hctz 100-12.5 mg Tab] Pantoprazole Sodium 40 mg PO BID 08/04/17 09/22/17 HydrOXYzine Pamoate [Vistaril] 50 mg PO Q6H PRN 09/22/17 09/22/17 Metoprolol XL (24 HR) Succ [Toprol 100 mg PO DAILY 09/22/17 09/22/17 Xl] Sertraline [Zoloft] 50 mg PO DAILY 09/22/17 09/22/17 Allergies Allergy/AdvReac Type Severity Reaction Status Date / Time wasp vemon Allergy Anaphylaxis Uncoded 08/04/17 07:30 Review of Systems: CONSTITUTIONAL: No weight loss, fever, chills, weakness or fatigue. HEENT: Eyes: No visual changes. Ears, Nose, Throat: No hearing loss, difficulty talking or unable to swallow. SKIN: No rash or itching. CARDIOVASCULAR: No chest pain, chest pressure or chest discomfort. No palpitations or edema. RESPIRATORY: Shortness of breath with exertion GASTROINTESTINAL: Occasional bleeding per rectum No anorexia, nausea, vomiting or diarrhea. No abdominal pain GENITOURINARY: No burning on urination or hematuria. NEUROLOGICAL: Headache No dizziness, syncope, paralysis, ataxia, numbness or tingling in the extremities. No change in bowel or bladder control. MUSCULOSKELETAL: Left arm and shoulder pain Past Medical History - Past Medical History Medical history: Reports: DVT, diabetes, hypertension, kidney stones, other Surgical history: Reports: herniorrhaphy, IVC Filter, vasectomy, other Psychiatric history: Reports: anxiety, depression - Social History Smoking Status: Never smoker Smokeless Tobacco Status: No Alcohol use: Reports: none Drug use: Reports: none Physical Exam General: Well appearing, nontoxic, no acute distress Head: Normocephalic Atraumatic Eyes: PERRL, EOMI ENT: Airway patent, no stridor Neck: supple, no meningismus Chest: Lungs clear to auscultation bilateral Cardiac: Regular rate and rhythm, no murmurs, rubs or gallops Abdomen: soft, nontender, nondistended; no guarding, rebound, or tenderness to percussion Musculoskeletal: Tenderness to palpation throughout the shoulder. Decreased sensation throughout the shoulder. Radial pulse on the left is decreased compared to the right. Calves symmetric, nontender, no palpable cord Skin: No rash, normal skin tone Neuro: Alert and Oriented to person, place, and time; left-sided numbness and decreased sensation/Mild decreased strength secondary to pain CN 2-12 symmetric and intact - General Limitations: no limitations General appearance: alert, in no apparent distress Course - Reevaluation(s) Reevaluation #1: Stool guaiac negative. Patient does have a abrasion at the 8 o'clock position. 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 - Consultations Consultation #1: Discussed with oncology. Patient to be started on heparin and they will further discuss anticoagulation and treatment tomorrow. Consultation #2: Discussed with hospitalist. CTA results are still trying to obtain from [facility]. From 5 weeks ago. Troponin and BNP are negative. No sign of right heart strain on EKG. If unable to obtain results we will get a CTA but we will hold off for now. Vital Signs Temperature 98.8 F 11/02/17 18:57 Pulse Rate 132 11/02/17 18:57 Respiratory Rate 18 11/02/17 18:57 Blood Pressure 143/88 11/02/17 18:57 O2 Sat by Pulse Oximetry 97 11/02/17 18:57 Temperature 98.8 F 11/02/17 18:57 Pulse Rate 132 11/02/17 18:57 Respiratory Rate 18 11/02/17 18:57 Blood Pressure 143/88 11/02/17 18:57 O2 Sat by Pulse Oximetry 97 11/02/17 18:57 Oxygen Delivery Oxygen Delivery Room Air Medical Decision Making - Medical Records Medical records reviewed: Yes I reviewed the patient's medical records. - Lab Data Lab results reviewed: Yes I reviewed the patient's lab results. Result diagrams: 11/02/17 19:58 11/02/17 19:58 Lab Results 11/02/17 11/02/17 11/02/17 Range/Units 19:58 19:58 19:58 WBC 6.8 (4.3-11.1) K/mcL RBC 4.38 (4.19-5.50) M/mcL Hgb 12.7 L (12.9-16.9) g/dL Hct 37.2 L (37.5-50.1) % MCV 84.9 (83.0-100.0) fL MCH 29.0 (28.0-33.3) pg MCHC 34.1 (31.6-35.5) g/dL RDW 12.4 (11.5-14.5) % Plt Count 184 (140-400) K/mcL MPV 9.6 (9.4-12.4) fL Immature Gran % 0.3 (0-4) % Seg Neutrophils % 61.0 % Lymphocytes % 28.4 % Monocytes % 7.6 % Eosinophils % 2.1 % Basophils % 0.6 % Neutrophils # 4.1 (1.6-8.9) K/mcL Lymphocytes # 1.9 (0.6-4.6) K/mcL Monocytes # 0.5 (0.0-1.3) K/mcL Eosinophils # 0.1 (0.0-0.6) K/mcL Basophils # 0.0 (0.0-0.2) K/mcL PT 9.7 (9.4-12.1) Seconds INR 0.9 APTT 26.3 (26.0-36.0) Seconds Sodium 140 (136-145) mEq/L Potassium 3.9 (3.5-5.1) mEq/L Chloride 105 (98-107) mEq/L Carbon Dioxide 26 (23-29) mEq/L BUN 21 H (6-20) mg/dL Creatinine 1.12 (0.70-1.30) mg/dL Est GFR ( Amer) > 60 (> 60) Est GFR (Non-Af Amer) > 60 (> 60) BUN/Creatinine Ratio 19 (6-26) Glucose 131 H (70-105) mg/dL Calculated Osmolality 295 (280-300) Calcium 9.5 (8.6-10.3) mg/dL Troponin I < 0.03 (< 0.04) ng/mL B-Natriuretic Peptide (Less than 100) pg/mL 11/02/17 Range/Units 19:58 WBC (4.3-11.1) K/mcL RBC (4.19-5.50) M/mcL Hgb (12.9-16.9) g/dL Hct (37.5-50.1) % MCV (83.0-100.0) fL MCH (28.0-33.3) pg MCHC (31.6-35.5) g/dL RDW (11.5-14.5) % Plt Count (140-400) K/mcL MPV (9.4-12.4) fL Immature Gran % (0-4) % Seg Neutrophils % % Lymphocytes % % Monocytes % % Eosinophils % % Basophils % % Neutrophils # (1.6-8.9) K/mcL Lymphocytes # (0.6-4.6) K/mcL Monocytes # (0.0-1.3) K/mcL Eosinophils # (0.0-0.6) K/mcL Basophils # (0.0-0.2) K/mcL PT (9.4-12.1) Seconds INR APTT (26.0-36.0) Seconds Sodium (136-145) mEq/L Potassium (3.5-5.1) mEq/L Chloride (98-107) mEq/L Carbon Dioxide (23-29) mEq/L BUN (6-20) mg/dL Creatinine (0.70-1.30) mg/dL Est GFR ( Amer) (> 60) Est GFR (Non-Af Amer) (> 60) BUN/Creatinine Ratio (6-26) Glucose (70-105) mg/dL Calculated Osmolality (280-300) Calcium (8.6-10.3) mg/dL Troponin I (< 0.04) ng/mL B-Natriuretic Peptide 9 (Less than 100) pg/mL - Radiology Data Radiology results reviewed: Yes I reviewed the patient's radiology results. - EKG Data EKG #1 EKG attestation: Yes I reviewed and interpreted this EKG. EKG results narrative: EKG shows sinus tachycardia with ventricular rate of 118. HI interval 155. QRS 81. QTC 368. No sign of ST elevation or depression. Patient has Q waves in lead 3 that is worse from previous of 09/22/17.
[2017-11-02 20:13] LABS: Basophils % 0.6 %; Eosinophils # 0.1 K/mcL (0.0-0.6); Eosinophils % 2.1 %; Hematocrit 37.2 % (37.5-50.1); Hemoglobin 12.7 g/dL (12.9-16.9); Immature Granulocytes % 0.3 % (0-4); Lymphocytes # 1.9 K/mcL (0.6-4.6); Lymphocytes % 28.4 %; Mean Corpuscular HGB Conc 34.1 g/dL (31.6-35.5); Mean Corpuscular Volume 84.9 fL (83.0-100.0); Mean Platelet Volume 9.6 fL (9.4-12.4); Monocytes # 0.5 K/mcL (0.0-1.3); Monocytes % 7.6 %; Neutrophils # 4.1 K/mcL (1.6-8.9); Platelet Count 184 K/mcL (140-400); Red Blood Count 4.38 M/mcL (4.19-5.50); Red Cell Distribution Width 12.4 % (11.5-14.5)
[2017-11-02 20:18] LABS: INR 0.9; Prothrombin Time 9.7 Seconds (9.4-12.1)
[2017-11-02 20:20] LABS: Activated Partial Thrombo Time 26.3 Seconds (26.0-36.0)
[2017-11-02 20:32] LABS: BUN/Creatinine Ratio 19 (6-26); Blood Urea Nitrogen 21 mg/dL (6-20); Calcium 9.5 mg/dL (8.6-10.3); Carbon Dioxide 26 mEq/L (23-29); Chloride 105 mEq/L (98-107); Glucose 131 mg/dL (70-105); Osmolality,Calculated 295 (280-300); Potassium 3.9 mEq/L (3.5-5.1); Sodium 140 mEq/L (136-145); Troponin I < 0.03 ng/mL (< 0.04); eGFR For African Americans > 60 (> 60); eGFR For Non-African Americans > 60 (> 60)
[2017-11-02] MEDS ORDERED: *HR* Heparin 5,000 UNIT/ML VIAL IVP ONE (21:37)
[2017-11-02] MEDS ORDERED: *HR* Heparin 5,000 UNIT/ML VIAL IVP PRN (21:37)
--- NOTE | 2017-11-02 21:43 | Emergency Department Note ---
Disposition Clinical Impression: Factor V Leiden, DVT (deep venous thrombosis), Pulmonary embolus Disposition: Admitted As Inpatient Condition: Fair General Adult HPI - General Chief complaint: ED Extremity Problem,Nontraumatic Stated complaint: Cough, R leg pain, L arm pain Time Seen by Provider: 11/02/17 19:20 Source: patient Limitations: no limitations Nursing Notes Reviewed: Yes Vital Signs Reviewed: Yes - History of Present Illness Pain Scale: 8 - Related Data Home Medications Medication Instructions Recorded Confirmed metFORMIN [Glucophage] 1,000 mg PO BID 10/06/15 11/02/17 amLODIPine [Norvasc] 5 mg PO DAILY 01/27/17 11/02/17 Amitriptyline HCl 100 mg PO HS 04/26/17 11/02/17 Gabapentin [Neurontin] 600 mg PO TID 04/26/17 11/02/17 Tizanidine HCl 4 mg PO Q8H PRN 04/26/17 11/02/17 Losartan/Hydrochlorothiazide 1 each PO DAILY 08/04/17 11/02/17 [Losartan-Hctz 100-12.5 mg Tab] HydrOXYzine Pamoate [Vistaril] 50 mg PO Q6H PRN 09/22/17 11/02/17 Metoprolol XL (24 HR) Succ [Toprol 100 mg PO DAILY 09/22/17 11/02/17 Xl] Sertraline [Zoloft] 50 mg PO DAILY 09/22/17 11/02/17 Allergies Allergy/AdvReac Type Severity Reaction Status Date / Time wasp vemon Allergy Anaphylaxis Uncoded 08/04/17 07:30 Past Medical History - Past Medical History Medical history: Reports: DVT, diabetes, hypertension, kidney stones, other Surgical history: Reports: herniorrhaphy, IVC Filter, vasectomy, other Psychiatric history: Reports: anxiety, depression - Social History Smoking Status: Never smoker Smokeless Tobacco Status: No Alcohol use: Reports: none Drug use: Reports: none Physical Exam - General Limitations: no limitations General appearance: alert, in no apparent distress Course Vital Signs Temperature 98.8 F 11/02/17 18:57 Pulse Rate 132 11/02/17 18:57 Respiratory Rate 18 11/02/17 18:57 Blood Pressure 143/88 11/02/17 18:57 O2 Sat by Pulse Oximetry 97 11/02/17 18:57 Temperature 98.8 F 11/02/17 18:57 Pulse Rate 124 11/02/17 22:47 Respiratory Rate 18 11/02/17 22:47 Blood Pressure 122/99 11/02/17 22:47 O2 Sat by Pulse Oximetry 90 11/02/17 22:47 Oxygen Delivery Oxygen Delivery Nasal Cannula Medical Decision Making - Lab Data Result diagrams: 11/02/17 19:58 11/02/17 19:58 Lab Results 11/02/17 11/02/17 11/02/17 Range/Units 19:58 19:58 19:58 WBC 6.8 (4.3-11.1) K/mcL RBC 4.38 (4.19-5.50) M/mcL Hgb 12.7 L (12.9-16.9) g/dL Hct 37.2 L (37.5-50.1) % MCV 84.9 (83.0-100.0) fL MCH 29.0 (28.0-33.3) pg MCHC 34.1 (31.6-35.5) g/dL RDW 12.4 (11.5-14.5) % Plt Count 184 (140-400) K/mcL MPV 9.6 (9.4-12.4) fL Immature Gran % 0.3 (0-4) % Seg Neutrophils % 61.0 % Lymphocytes % 28.4 % Monocytes % 7.6 % Eosinophils % 2.1 % Basophils % 0.6 % Neutrophils # 4.1 (1.6-8.9) K/mcL Lymphocytes # 1.9 (0.6-4.6) K/mcL Monocytes # 0.5 (0.0-1.3) K/mcL Eosinophils # 0.1 (0.0-0.6) K/mcL Basophils # 0.0 (0.0-0.2) K/mcL PT 9.7 (9.4-12.1) Seconds INR 0.9 APTT 26.3 (26.0-36.0) Seconds Sodium 140 (136-145) mEq/L Potassium 3.9 (3.5-5.1) mEq/L Chloride 105 (98-107) mEq/L Carbon Dioxide 26 (23-29) mEq/L BUN 21 H (6-20) mg/dL Creatinine 1.12 (0.70-1.30) mg/dL Est GFR ( Amer) > 60 (> 60) Est GFR (Non-Af Amer) > 60 (> 60) BUN/Creatinine Ratio 19 (6-26) Glucose 131 H (70-105) mg/dL Calculated Osmolality 295 (280-300) Calcium 9.5 (8.6-10.3) mg/dL Troponin I < 0.03 (< 0.04) ng/mL B-Natriuretic Peptide (Less than 100) pg/mL 11/02/17 Range/Units 19:58 WBC (4.3-11.1) K/mcL RBC (4.19-5.50) M/mcL Hgb (12.9-16.9) g/dL Hct (37.5-50.1) % MCV (83.0-100.0) fL MCH (28.0-33.3) pg MCHC (31.6-35.5) g/dL RDW (11.5-14.5) % Plt Count (140-400) K/mcL MPV (9.4-12.4) fL Immature Gran % (0-4) % Seg Neutrophils % % Lymphocytes % % Monocytes % % Eosinophils % % Basophils % % Neutrophils # (1.6-8.9) K/mcL Lymphocytes # (0.6-4.6) K/mcL Monocytes # (0.0-1.3) K/mcL Eosinophils # (0.0-0.6) K/mcL Basophils # (0.0-0.2) K/mcL PT (9.4-12.1) Seconds INR APTT (26.0-36.0) Seconds Sodium (136-145) mEq/L Potassium (3.5-5.1) mEq/L Chloride (98-107) mEq/L Carbon Dioxide (23-29) mEq/L BUN (6-20) mg/dL Creatinine (0.70-1.30) mg/dL Est GFR ( Amer) (> 60) Est GFR (Non-Af Amer) (> 60) BUN/Creatinine Ratio (6-26) Glucose (70-105) mg/dL Calculated Osmolality (280-300) Calcium (8.6-10.3) mg/dL Troponin I (< 0.04) ng/mL B-Natriuretic Peptide 9 (Less than 100) pg/mL Critical Care Time Critical Care Time: Yes Total Critical Care Time: 45 Attestation: Critical care performed: Time is exclusive of separately billable procedures. Time includes: direct patient care, patient reassessment, coordination of patient care, interpretation of data (laboratory data, radiology data, and respiratory data), review of patient's medical records, medical consultation and documentation of patient care. Procedures included in critical care time: Procedures excluded from critical care time: Attestation Statement - Attestation Attestation: I, Riaz Loomis MD, personally evaluated this patient and discussed their management with the resident physician. I reviewed the resident's note and agree with the documented findings, medical decision making, and plan of care. 52-year-old male with history of factor V presents complaining of blood clots in his legs and lungs and now also has arm pain. Patient has a prior history of blood clots and is been on multiple anticoagulants in the past. Not currently on anticoagulants. Patient states he had a CTA of his chest about 5 weeks ago at [facility] which showed a clots in his lung. He does have an IVC filter. He also was seen at [facility] 5 days ago and had a Doppler of the lower extremities which she states showed a clots. Results obtained from [facility] and the left leg was negative for DVT. The right leg showed a chronic DVT in the right popliteal and gastrocnemius veins. Patient admits to some rectal bleeding which he states he has chronic and not really concerned about. He has had problems in the past with bleeding from anticoagulants. Patient states that they wanted to start him on anticoagulants at [facility] but he refused because he was going on his [place]ymoon and [place] now [place] and is having increased pain in his leg as well as now having pain in his left upper arm injury to the left shoulder which started 4 days ago. Also generalized headache which started 4 days ago. On examination patient is a well-developed well-nourished male in no acute distress. He is alert and oriented 3. There is no cyanosis or diaphoresis. Breath sounds are clear and equal bilaterally. Heart regular with a mild tachycardia. Abdomen is soft and there with normal bowel sounds. No gross focal neurological deficits. Labs reviewed. Doppler of the left upper extremity here shows a possible superficial thrombus but no DVT in the arm. This was a verbal report from the jewelry technician at the time of exam. Dr. Godoy discussed with the police shift commander preservationist. We will go ahead and start the patient on heparin and admit to the hospitalist with hematology oncology consultation tomorrow. The hospitalist, Dr. Cifuentes, was consulted and accepted admission of the patient.
[2017-11-02] MEDS: Heparin 25,000 UNIT/500 ML D5W 25,000 UNIT/500 ML BAG IVC SCH (22:30)
[2017-11-02] MEDS ORDERED: *HR* HYDROmorphone (PF) 1 MG/ML SYRINGE ONE (23:34)
[2017-11-02] MEDS ORDERED: Naloxone 0.4 MG/ML INJ IVP PRN (23:36)
--- NOTE | 2017-11-02 23:36 | Internal Med History&Physical ---
<Pedro Segovia - Last Filed: 11/02/17 23:57> Date of Encounter: 11/02/17 Time of Encounter: 23:00 Internal Medicine - H&P: HPI Chief complaint: Left Shoulder pain/SOB Admitted From: Emergency Dept Plans for Post Hospital Care: Home History of present illness: Mr. Knight is a 52 year old male w/ pmh of HTN, HLD, t2DM, anxiety, left arm weakness/radiculopathy, Factor V lieden w/ multiple previous DVT/PE, IVC filter , and non-compliant with anticoagulation presents with 3 day history of shortness of breath and left shoulder pain. Patient states that his SOB started on Tuesday and is constant and worsens with movement and minimal physical activity, with mild SOB at rest. Patient states this has happened before when he's had PE's. Patient denies wheezes, chest pain, lower extremity swelling, fever, weight change. Patient states that he had his [place] IVC filter placed in [address] [place] [address] Perez and has been PE free until about 5 weeks ago. Patient was evaluated at [facility] and was found to have a misplaced IVC filter, and was referred to [facility] to have it removed. When he was evaluated at [facility], they informed him that they would not remove it and recommended anticoagulation. Patient states before the onset of his current symptoms he sat and drove 1600 miles in his car in 2 days. Patient was evaluated by [facility] 5 days ago, and they identified multiple chronic PE and DVT in LE, and possible new DVT in Left Upper extremity. Patient has been non- compliant with his eliquis because he states it took him over 10 minutes to stop bleeding when he was on it when he would check his blood sugars. He initially only took half dose of his eliquis but has been completely off of eliquis for about 2 months. He previously was on Coumadin for 6 months when he initially had the IVC filter placed and had no complications. Patient states he is interested on going on coumadin again. When patient presented to [place] ED patient was SOB, and tachycardic. Patient was started on heparin in the ED. Patient also states that he's had associated left shoulder pain that started about the same time. He states he is unable to move his shoulder without triggering a sharp 10/10 pain that eventually becomes numb. He has limited ROM and subjective decrease muscle strength. Patient denies he's had problems like this in the past. He does state at some point he had a torn rotator cuffs which was repaired at [place]. Past Med Surg Social Fam HX - Past Medical History Medical history: DVT, diabetes, hypertension, kidney stones, other Psychiatric history: anxiety, depression - Past Surgical History Surgical History: herniorrhaphy, IVC Filter, vasectomy, other - Social History Smoking Status: Never smoker Smokeless Tobacco Status: No Alcohol use: none Drug use: none - Family History Father Living Status: Hx Family Cardiac Disorders: Yes (ID) Mother Living Status: Internal Medicine - H&P: Meds metFORMIN [Glucophage] 1,000 mg PO BID 10/06/15 [History] amLODIPine [Norvasc] 5 mg PO DAILY 01/27/17 [History] Amitriptyline HCl 100 mg PO HS 04/26/17 [History] Gabapentin [Neurontin] 600 mg PO TID 04/26/17 [History] Tizanidine HCl 4 mg PO Q8H PRN 04/26/17 [History] Losartan/Hydrochlorothiazide [Losartan-Hctz 100-12.5 mg Tab] 1 each PO DAILY 02/11 [History] HydrOXYzine Pamoate [Vistaril] 50 mg PO Q6H PRN 09/22/17 [History] Metoprolol XL (24 HR) Succ [Toprol Xl] 100 mg PO DAILY 09/22/17 [History] Sertraline [Zoloft] 50 mg PO DAILY 09/22/17 [History] 3 Allergy/AdvReac Type Severity Reaction Status Date / Time wasp vemon Allergy Anaphylaxis Uncoded 08/04/17 07:30 All Systems PM: A 10-system review of systems was performed and is negative for pertinent findings except as documented above in the HPI. - Constitutional Constitutional: no anorexia, no chills, no excessive sweating, no fatigue, no fever(s), no falls, no lethargy, no malaise, no night sweats, no weakness, no weight gain, no weight loss - EENT Eyes: no change in vision, no discharge, no pain, no photophobia Ears: no ear discharge, no ear pain, no tinnitus Nose, mouth and throat: no dysphagia, no nasal discharge, no neck pain, no sore throat - Cardiovascular Cardiovascular ROS IM: no chest pain, no diaphoresis, no dyspnea, no dyspnea on exertion, no edema, no irregular heart rhythm, no lightheadedness, no orthopnea , no palpitations, no paroxysmal nocturnal dyspnea, no syncope - Respiratory Respiratory: dyspnea, dyspnea on exertion, snoring, no cough, no hemoptysis, no wheezing, no pain on inspiration, no chest congestion, no excessive phlegm production - Gastrointestinal Gastrointestinal: no abdominal pain, no bloating, no change in bowel habits, no change in stool character, no coffee ground emesis, no constipation, no cramping , no diarrhea, no dyspepsia, no dysphagia, no early satiety, no excessive flatus , no fecal incontinence, no heartburn, no hematemesis, no hematochezia, no melena, no nausea, no vomiting - Musculoskeletal Musculoskeletal ROS IM: no numbness, no tingling Additional comments: Left anterior and posterior shoulder tender to light touch. Patient would not cooperate with ROM and strength exam - Integumentary Integumentary IM: no rash, no unusual bruising - Neurological Neurological ROS: no confusion, no convulsions, no focal weakness, no numbness, no tingling, no tremor(s) - Hematologic/Lymphatic Hematologic/Lymphatic: no easy bruising - Constitutional Vitals: Temp Pulse Resp BP Pulse Ox 98.8 F 124 18 122/99 90 11/02/17 18:57 11/02/17 22:47 11/02/17 22:47 11/02/17 22:47 11/02/17 22:47 General appearance: Present: cooperative, A&O X 3, pleasant, no acute distress, obese, answers questions appropriately - Head Head exam: Present: atraumatic, normocephalic - Eye Eye exam: Present: PERRL, conjuntiva pink, sclera anicteric Pupils: Present: PERRL - Neck Neck exam general surgery: Present: supple, trachea midline. Absent: lymphadenopathy - Respiratory Respiratory exam: Present: CTAB. Absent: accessory muscle use, decreased breath sounds, prolonged expiratory phase, rales, respiratory distress, rhonchi , stridor, wheezes, tachypnea - Cardiovascular Cardiovascular exam: Present: tachycardia. Absent: diastolic murmur, gallop, irregular rhythm, JVD, rubs, systolic murmur - GI/Abdominal GI/Abdominal exam: Present: normal bowel sounds, soft, no peritoneal signs. Absent: distended, firm, guarding, hepatomegaly, mass, rebound, rigid, tenderness - Extremities Exam Extremities exam: Present: tenderness (Left anterior and posterior shoulder.), warm, radial pulses palpable and symmetrical. Absent: calf tenderness, cyanotic , pedal edema - Neurological Exam Neurological exam: Present: alert, CN II-XII intact, oriented X3, no focal deficits. Absent: pronater drift, facial droop, speech deficit - Skin Skin exam: Present: dry, intact Internal Med - H&P Results - Labs CBC & Chem 7: 11/02/17 19:58 11/02/17 19:58 - Assessment and plan (1) Pulmonary embolus Current Visit: Yes Status: Acute Assessment and plan: Patient has known hx of Factor V leiden mutation w/ multiple previous DVT and PE. Patient has known chronic PE and DVT's, and workup at [facility] is suggestive of acute DVT in left UE. Doppler performed in [place] ED identified superficial thrombosis but no DVT in left UE. on chart review, patient has known out of place IVC filter. IVC filter was placed in 2008 at [place]. Patient has been non -compliance on anti-coagulant, eliquis, for the last two months. sPESI score is >0, which puts patient in high risk. WELL's Criteria is 9-10.5 (Sx, #1, HR> 100, prev PE, +/- immobilization). - Ordered CTA with IVF to prevent APRIL. Cr 1.12, baseline Cr 0.95 - continue heparin - recommend morning team to consult Dr. Perez for IVC filter eval - patient to be bridged to coumadin during hospitalization, patient prefers to be setup with coumadin clinic in [place] Qualifiers: Pulmonary embolism type: other Chronicity: acute Acute cor pulmonale presence: without acute cor pulmonale Qualified Code(s): I26.99 - Other pulmonary embolism without acute cor pulmonale (2) Sinus tachycardia Current Visit: Yes Status: Acute Assessment and plan: concernced for PE. see above (3) Left upper arm pain Current Visit: Yes Status: Acute Assessment and plan: unknown if acute or exacerbation of chronic problem. Ordered CT shoulder and upper extremity left. Doppler performed in ED identified superficial clot but no deep vein thrombosis. ibuprofen and tylenol for pain control (4) Factor V Leiden Current Visit: Yes Status: Acute Assessment and plan: see above (5) Hypertension Current Visit: Yes Status: Chronic Assessment and plan: will continue to monitor. continue home Rx Qualifiers: Hypertension type: essential hypertension Qualified Code(s): I10 - Essential (primary) hypertension (6) EDEN (obstructive sleep apnea) Current Visit: Yes Status: Chronic Assessment and plan: Ordered CPAP at night (7) Diabetes Current Visit: Yes Status: Chronic Assessment and plan: will monitor BG. hold home metformin during hospitalization. Qualifiers: Diabetes mellitus type: type 2 Diabetes mellitus termination clerk insulin use: without halfway use Diabetes mellitus complication status: without complication Qualified Code(s): E11.9 - Type 2 diabetes mellitus without complications (8) DVT prophylaxis Current Visit: Yes Status: Acute Assessment and plan: currently on heparin. (9) Obesity (BMI 30.0-34.9) Current Visit: Yes Status: Acute Assessment and plan: chronic. educated patient on weight loss benefits - Time Spent With Patient Total time spent is greater than 50% in coordination of care (as documented) at patient's floor/unit and/or counseling patient: <Adriane Hart - Last Filed: 11/03/17 07:10> Date of Encounter: 11/03/17 Internal Medicine - H&P: HPI History of present illness: Mr. Knight is a 52 year old male All Systems PM: A 10-system review of systems was performed and is negative for pertinent findings except as documented above in the HPI. - Constitutional Vitals: Temp Pulse Resp BP Pulse Ox 98.4 F 106 20 144/99 97 11/03/17 05:00 11/03/17 05:00 11/03/17 05:00 11/03/17 05:00 11/03/17 05:00 Internal Med - H&P Results - Labs CBC & Chem 7: 11/03/17 01:48 11/02/17 19:58 Labs: Short CBC 11/03/17 Range/Units 01:48 WBC 5.2 (4.3-11.1) K/mcL Hgb 11.6 L (12.9-16.9) g/dL Hct 34.4 L (37.5-50.1) % Plt Count 180 (140-400) K/mcL Neutrophils # 2.5 (1.6-8.9) K/mcL - Impressions ITS Impressions Chest CTA 11/03/17 23:43 IMPRESSION: Negative for acute pulmonary embolism. Bibasilar linear areas of atelectasis and/ or scarring, however amidst these areas is suspected airspace disease at the left lung - suspicious for aspiration or pneumonia. D/ / Yoni Ruvalcaba / Yoni Ruvalcaba Interpreting Provider: Yoni Ruvalcaba Shoulder CT 11/03/17 23:56 IMPRESSION: No acute osseous or soft tissue abnormality involving the left upper extremity. Left upper extremity venous structures appear patent. Please see same-day CT chest for additional findings. D/ / Yoni Ruvalcaba / Yoni Ruvalcaba Interpreting Provider: Yoni Ruvalcaba Upper Extremity CT 11/03/17 23:56 IMPRESSION: No acute osseous or soft tissue abnormality involving the left upper extremity. Left upper extremity venous structures appear patent. Please see same-day CT chest for additional findings. D/ / Yoni Ruvalcaba / Yoni Ruvalcaba Interpreting Provider: Yoni Ruvalcaba - Attending Attestation I have seen and examined this patient independently, I have discussed with the resident physician Dr. Segovia regarding the management plan. Agree with the documentation. - Assessment and plan (1) Hypertension Current Visit: Yes Status: Chronic Qualifiers: Hypertension type: essential hypertension Qualified Code(s): I10 - Essential (primary) hypertension (2) Diabetes Current Visit: Yes Status: Chronic Qualifiers: Diabetes mellitus type: type 2 Diabetes mellitus halfway insulin use: without termination clerk use Diabetes mellitus complication status: without complication Qualified Code(s): E11.9 - Type 2 diabetes mellitus without complications (3) DVT prophylaxis Current Visit: Yes Status: Acute (4) Left upper arm pain Current Visit: Yes Status: Acute (5) EDEN (obstructive sleep apnea) Current Visit: Yes Status: Chronic (6) Sinus tachycardia Current Visit: Yes Status: Acute (7) Factor V Leiden Current Visit: Yes Status: Acute (8) Pulmonary embolus Current Visit: Yes Status: Acute Qualifiers: Pulmonary embolism type: other Chronicity: acute Acute cor pulmonale presence: without acute cor pulmonale Qualified Code(s): I26.99 - Other pulmonary embolism without acute cor pulmonale (9) Obesity (BMI 30.0-34.9) Current Visit: Yes Status: Acute - Time Spent With Patient Total time spent is greater than 50% in coordination of care (as documented) at patient's floor/unit and/or counseling patient:
[2017-11-02] MEDS ORDERED: Isovue-370 500 ML INFUS..BTL IV ONE (23:43)
[2017-11-02] MEDS ORDERED: Ibuprofen 600 MG TABLET PO PRN (23:45)
[2017-11-02] MEDS ORDERED: Acetaminophen 325 MG TABLET PO PRN (23:46)
[2017-11-03] MEDS: 0.9 % Sodium Chloride 1,000 ML IVC SCH ×2 (01:33→12:34)
[2017-11-03] MEDS ORDERED: *HR* OxyCODONE/APAP 5/325 TABLET ONE (03:55)
[2017-11-03 05:58] LABS: Basophils % 0.6 %; Eosinophils # 0.2 K/mcL (0.0-0.6); Eosinophils % 3.1 %; Hematocrit 34.4 % (37.5-50.1); Hemoglobin 11.6 g/dL (12.9-16.9); Immature Granulocytes % 0.8 % (0-4); Lymphocytes % 38.1 %; Mean Corpuscular HGB Conc 33.7 g/dL (31.6-35.5); Mean Corpuscular Hemoglobin 28.9 pg (28.0-33.3); Mean Corpuscular Volume 85.8 fL (83.0-100.0); Mean Platelet Volume 10.1 fL (9.4-12.4); Monocytes # 0.5 K/mcL (0.0-1.3); Monocytes % 8.9 %; Neutrophils # 2.5 K/mcL (1.6-8.9); Platelet Count 180 K/mcL (140-400); Red Blood Count 4.01 M/mcL (4.19-5.50); Red Cell Distribution Width 12.2 % (11.5-14.5); Segmented Neutrophils % 48.5 %
[2017-11-03] MEDS: *HR* Heparin 5,000 UNIT/ML VIAL IVP PRN (07:00)
[2017-11-03] MEDS ORDERED: Dextrose Gel 15 GM/37.5 ML TUBE PO PRN ×2 (07:09)
[2017-11-03] MEDS ORDERED: *HR* Dextrose 50 % in Water (Syg) 50 ML SYRINGE IVP PRN (07:09)
[2017-11-03] MEDS ORDERED: D5% in Water 1,000 ML IVC PRN (07:09)
[2017-11-03 07:36] LABS: Alanine Aminotransferase 25 Units/L (7-52); Albumin 3.8 g/dL (3.5-5.7); Albumin/Globulin Ratio 1.5 (1.1-2.2); Alkaline Phosphatase 50 Units/L (34-104); Aspartate Amino Transferase 20 Units/L (13-39); BUN/Creatinine Ratio 19 (6-26); Bilirubin,Total 0.2 mg/dL (0.3-1.0); Blood Urea Nitrogen 21 mg/dL (6-20); Carbon Dioxide 23 mEq/L (23-29); Chloride 101 mEq/L (98-107); Globulin 2.5 g/dL (2.4-3.5); Glucose 192 mg/dL (70-105); Osmolality,Calculated 296 (280-300); Potassium 4.1 mEq/L (3.5-5.1); Sodium 139 mEq/L (136-145); Total Protein 6.3 g/dL (6.4-8.9); eGFR For African Americans > 60 (> 60); eGFR For Non-African Americans > 60 (> 60)
[2017-11-03] MEDS: Insulin LISPRO 300 UNITS/3 ML VIAL SQ SCH ×4 (09:44→22:42)
[2017-11-03] MEDS: hydroCHLOROthiazide 25 MG TABLET PO SCH (09:45)
[2017-11-03] MEDS: Metoprolol XL (24 HR) Succ 50 MG TAB.ER.24H PO SCH (09:45)
[2017-11-03] MEDS: Gabapentin 300 MG CAPSULE PO SCH ×3 (09:45→21:18)
[2017-11-03] MEDS: *HR* OxyCODONE/APAP 5/325 TABLET PO PRN ×4 (09:46→23:14)
[2017-11-03] MEDS: amLODIPine 5 MG TABLET PO SCH (09:46)
[2017-11-03] MEDS: tiZANidine 4 MG TABLET PO PRN ×2 (09:47→15:40)
--- NOTE | 2017-11-03 12:20 | Internal Med Progress Note ---
Date of Encounter: 11/03/17 Time of Encounter: 12:00 - Assessment and plan (1) Pulmonary embolus Current Visit: Yes Status: Acute Assessment and plan: Patient has known hx of Factor V leiden mutation w/ multiple previous DVT and PE. Patient has known chronic PE and DVT's, and workup at [facility] is suggestive of acute DVT in left UE. Doppler performed in [place] ED identified superficial thrombosis but no DVT in left UE. on chart review, patient has reportedly out of place IVC filter. CT chest and shoulder showed no evidence of DVT. Will continue heparin drip with bridging to coumadin. Vascular surgery consulted for IVC filter, recommend PA and lateral xray. Will follow Qualifiers: Pulmonary embolism type: other Chronicity: acute Acute cor pulmonale presence: without acute cor pulmonale Qualified Code(s): I26.99 - Other pulmonary embolism without acute cor pulmonale (2) Hypertension Current Visit: Yes Status: Chronic Assessment and plan: will continue to monitor. continue home Rx Qualifiers: Hypertension type: essential hypertension Qualified Code(s): I10 - Essential (primary) hypertension (3) Diabetes Current Visit: Yes Status: Chronic Assessment and plan: will monitor BG. hold home metformin during hospitalization. 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 (5) Left upper arm pain Current Visit: Yes Status: Acute Assessment and plan: likely musculoskeletal. Pain control as needed. CT shoulder negative for any acute findings such as clots or fracture (6) EDEN (obstructive sleep apnea) Current Visit: Yes Status: Chronic Assessment and plan: Ordered CPAP at night (7) Sinus tachycardia Current Visit: Yes Status: Acute Assessment and plan: concernced for PE. see above (8) Factor V Leiden Current Visit: Yes Status: Acute Assessment and plan: see above (9) Obesity (BMI 30.0-34.9) Current Visit: Yes Status: Acute Assessment and plan: chronic. educated patient on weight loss benefits - Time Spent With Patient Total time spent is greater than 50% in coordination of care (as documented) at patient's floor/unit and/or counseling patient: - Subjective Interval history: No acute events overnight - Constitutional Vitals: Temp Pulse Resp BP Pulse Ox 97.5 F L 101 17 124/88 98 11/03/17 07:00 11/03/17 11:00 11/03/17 11:00 11/03/17 11:00 11/03/17 07:00 General appearance: Present: cooperative, A&O X 3, pleasant, no acute distress, obese, answers questions appropriately - Head Head exam: Present: atraumatic, normocephalic - Eye Eye exam: Present: PERRL, conjuntiva pink, sclera anicteric Pupils: Present: PERRL - Neck Neck exam general surgery: Present: supple, trachea midline. Absent: lymphadenopathy - Respiratory Respiratory exam: Present: CTAB. Absent: accessory muscle use, rales, rhonchi, wheezes - Cardiovascular Cardiovascular exam: Present: RRR, +S1, +S2. Absent: diastolic murmur, gallop, rubs, systolic murmur - GI/Abdominal GI/Abdominal exam: Present: normal bowel sounds, soft, no peritoneal signs. Absent: distended, tenderness - Extremities Exam Extremities exam: Present: warm, radial pulses palpable and symmetrical. Absent : calf tenderness, cyanotic, pedal edema - Neurological Exam Neurological exam: Present: CN II-XII intact, oriented X3, no focal deficits. Absent: pronater drift, facial droop, speech deficit - Skin Skin exam: Present: dry, intact Internal Medicine: Result - Labs CBC & Chem 7: 11/03/17 01:48 11/03/17 01:48 Labs: Short CBC 11/03/17 Range/Units 01:48 WBC 5.2 (4.3-11.1) K/mcL Hgb 11.6 L (12.9-16.9) g/dL Hct 34.4 L (37.5-50.1) % Plt Count 180 (140-400) K/mcL Neutrophils # 2.5 (1.6-8.9) K/mcL BMP 11/03/17 01:48 Sodium 139 Potassium 4.1 Chloride 101 Carbon Dioxide 23 BUN 21 H Creatinine 1.13 Glucose 192 H Calcium 9.0 Liver Function 11/03/17 Range/Units 01:48 Total Bilirubin 0.2 L (0.3-1.0) mg/dL AST 20 (13-39) Units/L ALT 25 (7-52) Units/L Alkaline Phosphatase 50 (34-104) Units/L Albumin 3.8 (3.5-5.7) g/dL - ABG Interpretation ABG results: PT/INR, D-dimer PT 9.7 Seconds (9.4-12.1) 11/02/17 19:58 - Impressions Impressions Chest CTA 11/03/17 23:43 IMPRESSION: Negative for acute pulmonary embolism. Bibasilar linear areas of atelectasis and/ or scarring, however amidst these areas is suspected airspace disease at the left lung - suspicious for aspiration or pneumonia. D/ / Yoni Ruvalcaba / Yoni Ruvalcaba Interpreting Provider: Yoni Ruvalcaba Shoulder CT 11/03/17 23:56 IMPRESSION: No acute osseous or soft tissue abnormality involving the left upper extremity. Left upper extremity venous structures appear patent. Please see same-day CT chest for additional findings. D/ / 11/03/2017 07:51:13 Yoni Ruvalcaba / emiliano Interpreting Provider: Yoni Ruvalcaba Upper Extremity CT 11/03/17 23:56 IMPRESSION: No acute osseous or soft tissue abnormality involving the left upper extremity. Left upper extremity venous structures appear patent. Please see same-day CT chest for additional findings. D/ / 11/03/2017 07:51:13 Yoni Ruvalcaba / emiliano Interpreting Provider: Yoni Ruvalcaba Consult Discharge Plan - Plan Referrals: Colin Wiley DO [Primary Care Provider] - 11/11/17 1:00 pm
--- NOTE | 2017-11-03 13:18 | Oncology Inp Consult Note ---
<Rosalba Bowman S - Last Filed: 11/03/17 19:05> Date of Encounter: 11/03/17 - Data of Consult Requesting Physician: Jose Cifuentes MD Primary Care Provider: Colin Wiley DO - Consult Narrative History of present illness: Mr. Knight is a 52 year old male Medications and Allergies metFORMIN [Glucophage] 1,000 mg PO BID 10/06/15 [History] amLODIPine [Norvasc] 5 mg PO DAILY 01/27/17 [History] Amitriptyline HCl 100 mg PO HS 04/26/17 [History] Gabapentin [Neurontin] 600 mg PO TID 04/26/17 [History] Tizanidine HCl 4 mg PO Q8H PRN 04/26/17 [History] Losartan/Hydrochlorothiazide [Losartan-Hctz 100-12.5 mg Tab] 1 each PO DAILY 02/11 [History] HydrOXYzine Pamoate [Vistaril] 50 mg PO Q6H PRN 09/22/17 [History] Metoprolol XL (24 HR) Succ [Toprol Xl] 100 mg PO DAILY 09/22/17 [History] Sertraline [Zoloft] 50 mg PO DAILY 09/22/17 [History] OxyCODONE/APAP 5/325 [Percocet 5/325 MG] 1 each PO Q4HR PRN 4 Days #14 tablet [Rx] Warfarin [Coumadin] 5 mg PO 1800 #30 tablet 11/07/17 [Rx] 3 Allergy/AdvReac Type Severity Reaction Status Date / Time wasp vemon Allergy Anaphylaxis Uncoded 08/04/17 07:30 Oncology - Exam - Constitutional Vitals: Temp Pulse Resp BP Pulse Ox 97.5 F L 108 18 132/99 97 11/03/17 07:00 11/03/17 16:24 11/03/17 16:24 11/03/17 16:24 11/03/17 16:24 Oncology - Results Labs: Short CBC 11/03/17 Range/Units 01:48 WBC 5.2 (4.3-11.1) K/mcL Hgb 11.6 L (12.9-16.9) g/dL Hct 34.4 L (37.5-50.1) % Plt Count 180 (140-400) K/mcL Neutrophils # 2.5 (1.6-8.9) K/mcL BMP 11/03/17 01:48 Sodium 139 Potassium 4.1 Chloride 101 Carbon Dioxide 23 BUN 21 H Creatinine 1.13 Glucose 192 H Calcium 9.0 Liver Function 11/03/17 Range/Units 01:48 Total Bilirubin 0.2 L (0.3-1.0) mg/dL AST 20 (13-39) Units/L ALT 25 (7-52) Units/L Alkaline Phosphatase 50 (34-104) Units/L Albumin 3.8 (3.5-5.7) g/dL Consult Discharge Plan - Plan Instructions: Pulmonary Embolism (DC), Diabetes Mellitus Type 2 in Adults (DC) , Chronic Hypertension (DC) Referrals: Colin Wiley DO [Primary Care Provider] - 11/11/17 1:00 pm Prescriptions: OxyCODONE/APAP 5/325 [Percocet 5/325 MG] 1 each PO Q4HR PRN 4 Days #14 tablet PRN Reason: moderate to severe Pain Warfarin [Coumadin] 5 mg PO 1800 #30 tablet - Attending Attestation 1. Recurrent DVT mostly unprovoked. Heterozygous factor V Leiden mutation, History of IVC filter placement 2008, He wants the filter remote. This may be a challenge given that it was placed several years ago. Dr. Millard has been consult at 2. He has been on Elequis. He claims it causes increased bleeding. He is also worried that there is no antidote available. I updated him that factor X A neutralizing agent has been recently FDA approved September 2017. One be available. He for the same reason does not want to try other newer oral anticoagulation agent. Factor II A reversing antibody has been approved and available for the last 6 months. We could keep Pradaxa as an option in the future 3. Per his wishes he was started on Coumadin today. I reemphasized about dietary restriction including minimizing salad intake and also be consistent with that. He is aware of Coumadin complications. Blood monitoring is necessary but once he reaches steady state once a month should be enough 4. Possible acute thrombophlebitis left upper extremity. He has a lot of pain and oral Percocet is not helping. We will keep him on Dilaudid/morphine IV to control his acute pain <Rivka Easton - Last Filed: 11/07/17 12:31> Date of Encounter: 11/03/17 Time of Encounter: 13:16 Assessment and Plan (1) Factor V Leiden Status: Chronic Assessment and plan: History of recurrent unprovoked deep vein thrombosis, Heterozygous factor V Leiden mutation, History of IVC filter placement 2008, Recent hospitalization in 05/13 for GI bleed related to hemorrhoids and gastritis. Denies s/s bleeding at this time, hgb 11.6. As detailed in HPI, patient requesting IVC filter removal. According to Dr. Schwartz 's most recent clinic note, he discouraged filter removal. [facility] consultation reviewed which had discouraged IVC filter removal as detailed in HPI. Patient states he has recently consulted with [facility] who apparently agreed to remove his IVC, patient is aware of the high risk associated with such removal. Would appreciate continued recommendations to vascular surgery regarding IVC removal recommendations, Vascular has been consulted per primary team. CTA negative for acute PE. I spoke with cardio and received preliminary UE venous doppler report which did reveal a SVT in the left basilic vein, no acute DVT. I discussed options for anticoagulation for quite some time with the patient at bedside today. We discussed pros/cons of DOAC therapy versus coumadin. Patient has not been compliant with his eliquis due to the fact that he has to hold pressure to his finger for upwards of 10 minutes with his blood sugar checks. He desires to go back to coumadin. I did explain that coumadin will likely have this same effect, along with the need for multiple blood sticks for titration of INR levels and a long list of interactions associated with coumadin. He continues to desire coumadin therapy. It appears that the primary team is already working to transition him to coumadin and planning to set him up with the coumadin clinic. 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 He does not wish to follow up further with [facility] and states he has already established with a real estate appraiser supervisor in [place]. Hematology will sign off at this time. - Data of Consult Patient: known to practice within the last 3 years Consult date: 11/03/17 Requesting Physician: Jose Cifuentes MD Primary Care Provider: Sincere Alvarez-Rolenson, DO - Consult Narrative Reason for consult: Heterozygous Factor V Leiden History of present illness: Mr. Knight is a 52 year old male with oncologic history significant for history of recurrent unprovoked deep vein thrombosis, Heterozygous factor V Leiden mutation, History of IVC filter placement 2008, Recent hospitalization in 05/13 for GI bleed related to hemorrhoids and gastritis. According to [facility] record, patient consulted with Dr. Cotto, Chief of Vascular Surgery at [facility] around October 05, with concern for his IVC filter causing abdominal pain. He had a CT angio with delayed views and oral contrast to evaluate the IVC filter position. His CT angio at [facility] did reveal an intact infrarenal IVC filter with penetration of the posterior 3 struts and one anterior strut, which are not in contact with surrounding organs. Dr. Cotto did not feel that this was the cause of the patients pain, given that there is no proximity to the bowel, pancreas, etc. and recommended he return to clinic again in one year for a non contrast CT. He presented to [facility] ED on 11/02/2017 with 3 day history of shortness of breath present at rest which worsens with any exertion and left shoulder pain. CTA is negative for PE, revealed Bibasilar linear areas of atelectasis and/ or scarring , however amidst these areas is suspected airspace disease at the left lung - suspicious for aspiration or pneumonia. His final UE venous doppler results are not reported as of yet, performed in ER, called cardio preliminary results- per cardio he is has superficial basilic venous thrombosis, no acute DVT. He denies LE pain or back pain abdominal pain at this time. He reports that he has been non compliant with his eliquis, taking only once per day for some time and recently he has not been taking Eliquis at all for 1- 2 months. He states he bleeds for 10 minutes with his blood sugar checks while on Eliquis so he discontinued the medication himself. Past Med Surg Social Fam HX - Past Medical History Medical history: DVT, diabetes, hypertension, kidney stones, other Psychiatric history: anxiety, depression - Past Surgical History Surgical History: herniorrhaphy, IVC Filter, vasectomy, other - Social History Smoking Status: Never smoker Smokeless Tobacco Status: No Alcohol use: none Drug use: none - Family History Father Living Status: Hx Family Cardiac Disorders: Yes ([place]) Mother Living Status: Constitutional: Absent: anorexia, chills, fatigue, fever(s), weakness, weight loss Eyes: Absent: change in vision Nose, mouth and throat: Absent: dysphagia Cardiovascular: Absent: chest pain, palpitations Respiratory: Present: dyspnea. Absent: cough, hemoptysis Gastrointestinal: Present: as per HPI. Absent: abdominal pain, change in bowel habits, hematemesis, hematochezia, melena, vomiting Additional comments: reports history of rectal bleeding secondary to hemorrhoids, denies recent bleeding Additional comments: denies dysuria, hematuria Musculoskeletal: Absent: numbness, tingling Integumentary: Absent: wounds Neurological: Absent: focal weakness, frequent falls Hematologic/Lymphatic: Present: as per HPI Oncology - Exam - Constitutional Vitals: Temp Pulse Resp BP Pulse Ox 97.5 F L 101 17 124/88 98 11/03/17 07:00 11/03/17 11:00 11/03/17 11:00 11/03/17 11:00 11/03/17 07:00 General appearance: cooperative, no acute distress, no febrile - Head Head exam: Present: atraumatic - ENT ENT exam: Present: mucous membranes moist - Respiratory Respiratory exam: Present: CTAB. Absent: respiratory distress - Cardiovascular Cardiovascular exam: Present: RRR, +S1, +S2 - GI/Abdominal GI/Abdominal exam: Present: normal bowel sounds, soft. Absent: tenderness - Extremities Exam Extremities exam: Present: normal inspection. Absent: calf tenderness - Neurological Exam Neurological exam: Present: alert, oriented X3, no focal deficits, strengths equal and symetr throughout - Psychiatric Psychiatric exam: Present: normal affect, normal mood - Skin Skin exam: Present: dry, intact, normal color, warm Oncology - Results Labs: Short CBC 11/03/17 Range/Units 01:48 WBC 5.2 (4.3-11.1) K/mcL Hgb 11.6 L (12.9-16.9) g/dL Hct 34.4 L (37.5-50.1) % Plt Count 180 (140-400) K/mcL Neutrophils # 2.5 (1.6-8.9) K/mcL BMP 11/03/17 01:48 Sodium 139 Potassium 4.1 Chloride 101 Carbon Dioxide 23 BUN 21 H Creatinine 1.13 Glucose 192 H Calcium 9.0 Liver Function 11/03/17 Range/Units 01:48 Total Bilirubin 0.2 L (0.3-1.0) mg/dL AST 20 (13-39) Units/L ALT 25 (7-52) Units/L Alkaline Phosphatase 50 (34-104) Units/L Albumin 3.8 (3.5-5.7) g/dL
[2017-11-03 13:29] LABS: Prothrombin Time 10.3 Seconds (9.4-12.1)
--- NOTE | 2017-11-03 15:20 | Electrocardiograph Report ---
[address] [address] Test Date: 2017-11-02 Pat Name: Kale Knight Department: 103 Room: [facility] Gender: M Loading Checker: : 1965 Requested By: [id number] Order Number: [id number] Reading MD: Amelia Dodd Measurements Intervals [place] Rate: 118 P: 42 [place]: 155 QRS: 29 QRSD: 81 T: 49 QT: 298 QTc: 368 Interpretive Statements SINUS TACHYCARDIA ABNORMAL RHYTHM ECG Electronically Signed On 11-03-2017 15:18:51 EDT by Amelia Dodd
[2017-11-03] MEDS: hydrOXYzine pamoate 25 MG CAPSULE PO PRN (15:40)
[2017-11-03] MEDS: Heparin 25,000 UNIT/500 ML D5W 25,000 UNIT/500 ML BAG IVC SCH (17:53)
[2017-11-03] MEDS ORDERED: Warfarin perPT PO PRN (18:00)
[2017-11-03] MEDS ORDERED: *HR* Warfarin 5 MG TABLET PO ONE (18:00)
[2017-11-03] MEDS: OXYCODONE Oral CONC 10 MG/0.5 ML ORAL.SYG SL PRN (21:23)
[2017-11-03] MEDS ORDERED: 0.9 % Sodium Chloride 1,000 ML ONE (23:13)
[2017-11-04] MEDS: OXYCODONE Oral CONC 10 MG/0.5 ML ORAL.SYG SL PRN ×4 (02:10→21:44)
[2017-11-04] MEDS: *HR* OxyCODONE/APAP 5/325 TABLET PO PRN ×3 (04:43→20:05)
[2017-11-04 06:21] LABS: Prothrombin Time 10.4 Seconds (9.4-12.1)
[2017-11-04 06:23] LABS: Activated Partial Thrombo Time 42.1 Seconds (26.0-36.0)
[2017-11-04] MEDS: hydrOXYzine pamoate 25 MG CAPSULE PO PRN (06:44)
[2017-11-04] MEDS: tiZANidine 4 MG TABLET PO PRN (06:44)
[2017-11-04] MEDS: *HR* Heparin 5,000 UNIT/ML VIAL IVP PRN (06:45)
--- NOTE | 2017-11-04 06:45 | Vascular/Endovasc Consult Note ---
Date of Encounter: 11/03/17 Time of Encounter: 12:00 Assessment and Plan (1) Factor V Leiden Current Visit: Yes Status: Chronic The patient is a hypercoagulable state secondary to factor V Leiden gene mutation. He is heterozygous for visitation. He has had multiple episodes of deep venous thrombosis in the lower and upper extremities as well as pulmonary emboli. She has been poorly compliant with anticoagulation for many years. He had an inferior vena cava filter placed in 2008. For reasons he cannot currently express he requests inferior vena cava filter retrieval. He is already sought care at [facility] an inferior vena cava filter retrieval was not recommended. The patient states that he is already spoken to someone at the [facility] and plans to see them regarding his inferior vena cava filter retrieval. He also expresses it at the [facility] is unwilling to remove the filter he has sought out someone in [facility] who may be able to move his filter. At this time I do not recommend removing his filter 2 to the associated potential complications including severe hemorrhage and . In addition given his poor compliance with anticoagulation and his hypercoagulable state, the absence of inferior vena cava filter would subject him to increase risk for recurrent pulmonary embolus. These risks were discussed in detail with the patient. He declines any further evaluation or discussion at this time. 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: without [facility] use Diabetes mellitus complication status: without complication Qualified Code(s): E11.9 - Type 2 diabetes mellitus without complications (3) HTN (hypertension) Current Visit: No Status: Chronic Qualifiers: Hypertension type: essential hypertension Qualified Code(s): I10 - Essential (primary) hypertension (4) Obesity (BMI 30.0-34.9) Current Visit: Yes Status: Chronic (5) Dyslipidemia associated with type 2 diabetes mellitus Current Visit: No Status: Chronic - History of Present Illness Consult date: 11/03/17 Requesting physician: Virgilio Buckley Consult reason: Hypercoagulable state, inferior vena cava filter Chief complaint: Shortness of breath History of present illness: Mr. Knight is a 52 year old male with a long history of hypercoagulable state due to factor V Leiden heterozygous mutation. The patient had multiple deep vein thrombosis and pulmonary emboli. He underwent inferior vena cava filter placement around 2008. The patient has admittedly been noncompliant with his anticoagulation at multiple times in the past. He was not on anticoagulant prior to admission. He also has a history of GI bleeding due to gastritis and hemorrhoids. The patient reportedly expresses a strong desire to remove his inferior vena cava filter. He is previously sought consultation at [facility] and inferior vena cava filter retrieval was discouraged. Vascular surgery has been counseled for further evaluation. The patient states he cannot express exactly why he wants his filter removed. However he is insistent that it be removed. He denies any current chest pain or shortness of breath. Past Med Surg Social Fam HX - Past Medical History Medical history: DVT, diabetes, hypertension, kidney stones, other Psychiatric history: anxiety, depression - Past Surgical History Surgical History: herniorrhaphy, IVC Filter, vasectomy, other - Social History Smoking Status: Never smoker Smokeless Tobacco Status: No Alcohol use: none Drug use: none - Family History Father Living Status: Hx Family Cardiac Disorders: Yes ([place]) Mother Living Status: Medications and Allergies metFORMIN [Glucophage] 1,000 mg PO BID 10/06/15 [History] amLODIPine [Norvasc] 5 mg PO DAILY 01/27/17 [History] Amitriptyline HCl 100 mg PO HS 04/26/17 [History] Gabapentin [Neurontin] 600 mg PO TID 04/26/17 [History] Tizanidine HCl 4 mg PO Q8H PRN 04/26/17 [History] Losartan/Hydrochlorothiazide [Losartan-Hctz 100-12.5 mg Tab] 1 each PO DAILY 02/11 [History] HydrOXYzine Pamoate [Vistaril] 50 mg PO Q6H PRN 09/22/17 [History] Metoprolol XL (24 HR) Succ [Toprol Xl] 100 mg PO DAILY 09/22/17 [History] Sertraline [Zoloft] 50 mg PO DAILY 09/22/17 [History] 3 Allergy/AdvReac Type Severity Reaction Status Date / Time wasp vemon Allergy Anaphylaxis Uncoded 08/04/17 07:30 All Systems Review: The remainder of the systems were reviewed and are negative - Constitutional Constitutional: no chills, no fatigue, no fever(s) - Cardiovascular Cardiovascular: no chest pain at rest, no chest pain with exertion, no dyspnea at rest, no dyspnea on exertion - Respiratory Respiratory: no cough, no dyspnea - Gastrointestinal Gastrointestinal: no abdominal pain Exam Vital Signs, Last 4 Hours Temp Pulse Resp BP Pulse Ox 11/04/17 05:18 97.9 F 103 20 163/119 97 General: Present: Conversant, No Apparent Distress HEENT: Present: Atraumatic, Pupils equal Neck: Absent: JVD, Lymphadenopathy, Left Carotid bruit, Right Carotid bruit Cardiac: Present: Reg Rate and Rhythm, Normal S1 and S2 Lungs: Present: Normal Breath Sounds, No Wheeze, Rales, Rhonchi Neuro: Present: Alert and responsive, Motor nerves grossly intact, Sensory nerves grossly intact Abdomen: Present: Soft, Non-tender. Absent: Masses Vascular: Present: Normal capillary refill, Pulse, normal. Absent: Cyanosis, Edema Skin: Present: No rashes noted on visualized skin Consult Discharge Plan - Plan Referrals: Colin Wiley DO [Primary Care Provider] - 11/11/17 1:00 pm
[2017-11-04] MEDS: Insulin LISPRO 300 UNITS/3 ML VIAL SQ SCH ×4 (09:37→21:23)
[2017-11-04] MEDS: hydroCHLOROthiazide 25 MG TABLET PO SCH (09:39)
[2017-11-04] MEDS: amLODIPine 5 MG TABLET PO SCH (09:40)
[2017-11-04] MEDS: Gabapentin 300 MG CAPSULE PO SCH ×3 (09:40→21:20)
[2017-11-04] MEDS: Metoprolol XL (24 HR) Succ 50 MG TAB.ER.24H PO SCH (09:40)
[2017-11-04] MEDS: Heparin 25,000 UNIT/500 ML D5W 25,000 UNIT/500 ML BAG IVC SCH (10:53)
--- NOTE | 2017-11-04 11:17 | Internal Med Progress Note ---
Date of Encounter: 11/04/17 Time of Encounter: 11:15 - Assessment and plan (1) Pulmonary embolus Current Visit: Yes Status: Acute Assessment and plan: Patient has known hx of Factor V leiden mutation w/ multiple previous DVT and PE. Patient has known chronic PE and DVT's, and workup at [facility] is suggestive of acute DVT in left UE. Doppler performed in [place] ED identified superficial thrombosis but no DVT in left UE. on chart review, patient has reportedly out of place IVC filter. CT chest and shoulder showed no evidence of DVT. PA An d lateral cxr showed no displacement of IVC filter. Patient has been seen by vascular surgery who recommend no acute surgical intervention CT angio chest negative for pE. WIll continue bridging with heparin to warfarin Qualifiers: Pulmonary embolism type: other Chronicity: unspecified Acute cor pulmonale presence: without acute cor pulmonale Qualified Code(s): I26.99 - Other pulmonary embolism without acute cor pulmonale (2) Hypertension Current Visit: Yes Status: Chronic Assessment and plan: will continue to monitor. continue home Rx Qualifiers: Hypertension type: essential hypertension Qualified Code(s): I10 - Essential (primary) hypertension (3) Diabetes Current Visit: Yes Status: Chronic Assessment and plan: will monitor BG. hold home metformin during hospitalization. Qualifiers: Diabetes mellitus type: type 2 Diabetes mellitus ad terminal makeup operator insulin use: without ad terminal makeup operator use Diabetes mellitus complication status: without complication Qualified Code(s): E11.9 - Type 2 diabetes mellitus without complications (4) DVT prophylaxis Current Visit: Yes Status: Acute Assessment and plan: currently on heparin. (5) Left upper arm pain Current Visit: Yes Status: Acute Assessment and plan: likely musculoskeletal. Pain control as needed. CT shoulder negative for any acute findings such as clots or fracture (6) EDEN (obstructive sleep apnea) Current Visit: Yes Status: Chronic Assessment and plan: Ordered CPAP at night (7) Sinus tachycardia Current Visit: Yes Status: Acute (8) Factor V Leiden Current Visit: Yes Status: Chronic Assessment and plan: see above (9) Obesity (BMI 30.0-34.9) Current Visit: Yes Status: Chronic Assessment and plan: chronic. educated patient on weight loss benefits - Time Spent With Patient Total time spent is greater than 50% in coordination of care (as documented) at patient's floor/unit and/or counseling patient: - Subjective Interval history: No acute events overnight - Constitutional Vitals: Temp Pulse Resp BP Pulse Ox 97.6 F 92 20 133/112 94 11/04/17 07:57 11/04/17 07:57 11/04/17 07:57 11/04/17 07:57 11/04/17 07:57 General appearance: Present: cooperative, A&O X 3, pleasant, no acute distress, obese, answers questions appropriately - Head Head exam: Present: atraumatic, normocephalic - Eye Eye exam: Present: PERRL, conjuntiva pink, sclera anicteric Pupils: Present: PERRL - Neck Neck exam general surgery: Present: supple, trachea midline. Absent: lymphadenopathy - Respiratory Respiratory exam: Present: CTAB. Absent: accessory muscle use, rales, rhonchi, wheezes - Cardiovascular Cardiovascular exam: Present: RRR, +S1, +S2. Absent: diastolic murmur, gallop, rubs, systolic murmur - GI/Abdominal GI/Abdominal exam: Present: normal bowel sounds, soft, no peritoneal signs. Absent: distended, tenderness - Extremities Exam Extremities exam: Present: warm, radial pulses palpable and symmetrical. Absent : calf tenderness, cyanotic, pedal edema - Neurological Exam Neurological exam: Present: CN II-XII intact, oriented X3, no focal deficits. Absent: pronater drift, facial droop, speech deficit - Skin Skin exam: Present: dry, intact Internal Medicine: Result - Labs CBC & Chem 7: 11/03/17 01:48 11/03/17 01:48 - ABG Interpretation ABG results: PT/INR, D-dimer PT 10.4 Seconds (9.4-12.1) 11/04/17 06:00 - Impressions Impressions Chest X-Ray 11/03/17 12:27 IMPRESSION: No radiopaque foreign bodies are identified. Patchy bilateral lower lung atelectasis secondary to low lung volumes. D/ / Elton Cullen MD / Elton Cullen MD Interpreting Provider: Elton Cullen MD Shoulder CT 11/03/17 23:56 IMPRESSION: No acute osseous or soft tissue abnormality involving the left upper extremity. Left upper extremity venous structures appear patent. Please see same-day CT chest for additional findings. D/ / 11/03/2017 07:51:13 Yoni Ruvalcaba / emiliano Interpreting Provider: Yoni Ruvalcaba Upper Extremity CT 11/03/17 23:56 IMPRESSION: No acute osseous or soft tissue abnormality involving the left upper extremity. Left upper extremity venous structures appear patent. Please see same-day CT chest for additional findings. D/ / 11/03/2017 07:51:13 Yoni Ruvalcaba / emiliano Interpreting Provider: Yoni Ruvalcaba Consult Discharge Plan - Plan Referrals: Colin Wiley DO [Primary Care Provider] - 11/11/17 1:00 pm
[2017-11-04] MEDS ORDERED: *HR* Warfarin 7.5 MG TABLET PO ONE (18:00)
[2017-11-04] MEDS: Ondansetron 4 MG/2 ML VIAL IVP SCH (23:18)
[2017-11-05] MEDS: *HR* OxyCODONE/APAP 5/325 TABLET PO PRN ×4 (00:01→22:56)
[2017-11-05 04:03] LABS: Prothrombin Time 10.5 Seconds (9.4-12.1)
[2017-11-05] MEDS: Heparin 25,000 UNIT/500 ML D5W 25,000 UNIT/500 ML BAG IVC SCH ×2 (04:28→21:45)
[2017-11-05] MEDS: OXYCODONE Oral CONC 10 MG/0.5 ML ORAL.SYG SL PRN ×3 (08:07→21:36)
[2017-11-05] MEDS: Ondansetron 4 MG/2 ML VIAL IVP SCH ×3 (08:08→18:04)
[2017-11-05] MEDS: Acetaminophen 325 MG TABLET PO PRN (08:08)
[2017-11-05] MEDS: amLODIPine 5 MG TABLET PO SCH (08:08)
[2017-11-05] MEDS: Metoprolol XL (24 HR) Succ 50 MG TAB.ER.24H PO SCH (08:09)
[2017-11-05] MEDS: Gabapentin 300 MG CAPSULE PO SCH ×3 (08:09→21:34)
[2017-11-05] MEDS: hydroCHLOROthiazide 25 MG TABLET PO SCH (08:10)
[2017-11-05] MEDS: Insulin LISPRO 300 UNITS/3 ML VIAL SQ SCH ×4 (08:10→21:34)
--- NOTE | 2017-11-05 09:55 | Internal Med Progress Note ---
Date of Encounter: 11/05/17 Time of Encounter: 09:50 - Assessment and plan (1) Pulmonary embolus Current Visit: Yes Status: Acute Assessment and plan: Patient has known hx of Factor V leiden mutation w/ multiple previous DVT and PE. Patient has known chronic PE and DVT's, and workup at [facility] is suggestive of acute DVT in left UE. Doppler performed in [place] ED identified superficial thrombosis but no DVT in left UE. on chart review, patient has reportedly out of place IVC filter. CT chest and shoulder showed no evidence of DVT. PA and lateral cxr showed no displacement of IVC filter. Patient has been seen by vascular surgery who recommend no acute surgical intervention CT angio chest negative for PE. Will continue bridging with heparin to warfarin Qualifiers: Pulmonary embolism type: other Chronicity: unspecified Acute cor pulmonale presence: without acute cor pulmonale Qualified Code(s): I26.99 - Other pulmonary embolism without acute cor pulmonale (2) Hypertension Current Visit: Yes Status: Chronic Assessment and plan: will continue to monitor. continue home Rx Qualifiers: Hypertension type: essential hypertension Qualified Code(s): I10 - Essential (primary) hypertension (3) Diabetes Current Visit: Yes Status: Chronic Assessment and plan: will monitor BG. hold home metformin during hospitalization. Qualifiers: Diabetes mellitus type: type 2 Diabetes mellitus computer terminal operator insulin use: without computer terminal operator use Diabetes mellitus complication status: without complication Qualified Code(s): E11.9 - Type 2 diabetes mellitus without complications (4) DVT prophylaxis Current Visit: Yes Status: Acute Assessment and plan: currently on heparin. (5) Left upper arm pain Current Visit: Yes Status: Acute Assessment and plan: likely musculoskeletal. Pain control as needed. CT shoulder negative for any acute findings such as clots or fracture (6) EDEN (obstructive sleep apnea) Current Visit: Yes Status: Chronic Assessment and plan: Ordered CPAP at night (7) Factor V Leiden Current Visit: Yes Status: Chronic Assessment and plan: see above (8) Obesity (BMI 30.0-34.9) Current Visit: Yes Status: Chronic Assessment and plan: chronic. educated patient on weight loss benefits - Time Spent With Patient Total time spent is greater than 50% in coordination of care (as documented) at patient's floor/unit and/or counseling patient: - Subjective Interval history: No acute events overnight - Constitutional Vitals: Temp Pulse Resp BP Pulse Ox 97.8 F 86 18 160/114 95 11/05/17 07:37 11/05/17 07:37 11/05/17 07:37 11/05/17 07:37 11/05/17 07:37 General appearance: Present: cooperative, A&O X 3, pleasant, no acute distress, obese, answers questions appropriately - Head Head exam: Present: atraumatic, normocephalic - Eye Eye exam: Present: PERRL, conjuntiva pink, sclera anicteric Pupils: Present: PERRL - Neck Neck exam general surgery: Present: supple, trachea midline. Absent: lymphadenopathy - Respiratory Respiratory exam: Present: CTAB. Absent: accessory muscle use, rales, rhonchi, wheezes - Cardiovascular Cardiovascular exam: Present: RRR, +S1, +S2. Absent: diastolic murmur, gallop, rubs, systolic murmur - GI/Abdominal GI/Abdominal exam: Present: normal bowel sounds, soft, no peritoneal signs. Absent: distended, tenderness - Extremities Exam Extremities exam: Present: warm, radial pulses palpable and symmetrical. Absent : calf tenderness, cyanotic, pedal edema - Neurological Exam Neurological exam: Present: CN II-XII intact, oriented X3, no focal deficits. Absent: pronater drift, facial droop, speech deficit - Skin Skin exam: Present: dry, intact Internal Medicine: Result - Labs CBC & Chem 7: 11/05/17 10:17 11/03/17 01:48 - ABG Interpretation ABG results: PT/INR, D-dimer PT 10.5 Seconds (9.4-12.1) 11/05/17 03:42 Consult Discharge Plan - Plan Referrals: Colin Wiley DO [Primary Care Provider] - 11/11/17 1:00 pm
[2017-11-05 10:41] LABS: Basophils % 0.4 %; Eosinophils # 0.1 K/mcL (0.0-0.6); Eosinophils % 2.9 %; Hematocrit 38.7 % (37.5-50.1); Hemoglobin 13.3 g/dL (12.9-16.9); Lymphocytes # 1.2 K/mcL (0.6-4.6); Lymphocytes % 24.7 %; Mean Corpuscular HGB Conc 34.4 g/dL (31.6-35.5); Mean Corpuscular Hemoglobin 29.3 pg (28.0-33.3); Mean Corpuscular Volume 85.2 fL (83.0-100.0); Mean Platelet Volume 9.6 fL (9.4-12.4); Monocytes # 0.4 K/mcL (0.0-1.3); Monocytes % 7.5 %; Platelet Count 177 K/mcL (140-400); Red Blood Count 4.54 M/mcL (4.19-5.50); Red Cell Distribution Width 12.3 % (11.5-14.5); Segmented Neutrophils % 63.5 %
[2017-11-05] MEDS: hydrOXYzine pamoate 25 MG CAPSULE PO PRN ×2 (12:19→18:08)
[2017-11-05] MEDS: tiZANidine 4 MG TABLET PO PRN (12:19)
[2017-11-05] MEDS ORDERED: *HR* Warfarin 7.5 MG TABLET PO ONE (18:00)
[2017-11-06] MEDS: *HR* Heparin 5,000 UNIT/ML VIAL IVP PRN (00:17)
[2017-11-06] MEDS: Ondansetron 4 MG/2 ML VIAL IVP SCH ×5 (00:22→23:58)
[2017-11-06] MEDS: *HR* OxyCODONE/APAP 5/325 TABLET PO PRN ×4 (05:44→21:23)
[2017-11-06 06:43] LABS: INR 1.5; Prothrombin Time 15.9 Seconds (9.4-12.1)
[2017-11-06 07:03] LABS: BUN/Creatinine Ratio 26 (6-26); Blood Urea Nitrogen 21 mg/dL (6-20); Calcium 9.8 mg/dL (8.6-10.3); Carbon Dioxide 25 mEq/L (23-29); Chloride 98 mEq/L (98-107); Glucose 314 mg/dL (70-105); Magnesium 1.6 mg/dL (1.6-2.6); Osmolality,Calculated 289 (280-300); Phosphorous 4.5 mg/dL (2.7-4.5); Potassium 4.5 mEq/L (3.5-5.1); Sodium 132 mEq/L (136-145); eGFR For African Americans > 60 (> 60); eGFR For Non-African Americans > 60 (> 60)
[2017-11-06 07:23] LABS: Activated Partial Thrombo Time 112.4 Seconds (26.0-36.0)
[2017-11-06 07:29] LABS: Heparin anti-factor XA UFH 0.54 IU/mL (0.30-0.70)
[2017-11-06 07:33] LABS: Basophils % 0.8 %; Eosinophils # 0.1 K/mcL (0.0-0.6); Eosinophils % 2.7 %; Hematocrit 39.9 % (37.5-50.1); Hemoglobin 13.5 g/dL (12.9-16.9); Lymphocytes # 1.6 K/mcL (0.6-4.6); Lymphocytes % 32.6 %; Mean Corpuscular HGB Conc 33.8 g/dL (31.6-35.5); Mean Corpuscular Hemoglobin 29.2 pg (28.0-33.3); Mean Corpuscular Volume 86.4 fL (83.0-100.0); Mean Platelet Volume 10.6 fL (9.4-12.4); Monocytes # 0.4 K/mcL (0.0-1.3); Monocytes % 7.6 %; Neutrophils # 2.7 K/mcL (1.6-8.9); Platelet Count 157 K/mcL (140-400); Red Blood Count 4.62 M/mcL (4.19-5.50); Red Cell Distribution Width 12.3 % (11.5-14.5); Segmented Neutrophils % 55.3 %
--- NOTE | 2017-11-06 08:54 | Internal Med Progress Note ---
Date of Encounter: 11/06/17 Time of Encounter: 08:50 - Assessment and plan (1) Pulmonary embolus Current Visit: Yes Status: Acute Assessment and plan: Patient has known hx of Factor V leiden mutation w/ multiple previous DVT and PE. Patient has known chronic PE and DVT's, and workup at [facility] is suggestive of acute DVT in left UE. Doppler performed in [place] ED identified superficial thrombosis but no DVT in left UE. on chart review, patient has reportedly out of place IVC filter. CT chest and shoulder showed no evidence of DVT. PA and lateral cxr showed no displacement of IVC filter. Patient has been seen by vascular surgery who recommend no acute surgical intervention CT angio chest negative for PE. Will continue bridging with heparin to warfarin. INR 1.5 today Qualifiers: Pulmonary embolism type: other Chronicity: unspecified Acute cor pulmonale presence: without acute cor pulmonale Qualified Code(s): I26.99 - Other pulmonary embolism without acute cor pulmonale (2) Hypertension Current Visit: Yes Status: Chronic Assessment and plan: will continue to monitor. continue home Rx Qualifiers: Hypertension type: essential hypertension Qualified Code(s): I10 - Essential (primary) hypertension (3) Diabetes Current Visit: Yes Status: Chronic Assessment and plan: will monitor BG. hold home metformin during hospitalization. Qualifiers: Diabetes mellitus type: type 2 Diabetes mellitus residential insulin use: without terminal gauger supervisor use Diabetes mellitus complication status: without complication Qualified Code(s): E11.9 - Type 2 diabetes mellitus without complications (4) DVT prophylaxis Current Visit: Yes Status: Acute Assessment and plan: currently on heparin. (5) Left upper arm pain Current Visit: Yes Status: Acute Assessment and plan: likely musculoskeletal. Pain control as needed. CT shoulder negative for any acute findings such as clots or fracture (6) EDEN (obstructive sleep apnea) Current Visit: Yes Status: Chronic Assessment and plan: Ordered CPAP at night (7) Factor V Leiden Current Visit: Yes Status: Chronic Assessment and plan: see above (8) Obesity (BMI 30.0-34.9) Current Visit: Yes Status: Chronic Assessment and plan: chronic. educated patient on weight loss benefits - Time Spent With Patient Total time spent is greater than 50% in coordination of care (as documented) at patient's floor/unit and/or counseling patient: - Subjective Interval history: No acute events overnight - Constitutional Vitals: Temp Pulse Resp BP Pulse Ox 97.4 F L 88 18 117/76 97 11/06/17 07:20 11/06/17 07:20 11/06/17 07:20 11/06/17 07:20 11/06/17 07:20 General appearance: Present: cooperative, A&O X 3, pleasant, no acute distress, obese, answers questions appropriately - Head Head exam: Present: atraumatic, normocephalic - Eye Eye exam: Present: PERRL, conjuntiva pink, sclera anicteric Pupils: Present: PERRL - Neck Neck exam general surgery: Present: supple, trachea midline. Absent: lymphadenopathy - Respiratory Respiratory exam: Present: CTAB. Absent: accessory muscle use, rales, rhonchi, wheezes - Cardiovascular Cardiovascular exam: Present: RRR, +S1, +S2. Absent: diastolic murmur, gallop, rubs, systolic murmur - GI/Abdominal GI/Abdominal exam: Present: normal bowel sounds, soft, no peritoneal signs. Absent: distended, tenderness - Extremities Exam Extremities exam: Present: warm, radial pulses palpable and symmetrical. Absent : calf tenderness, cyanotic, pedal edema - Neurological Exam Neurological exam: Present: CN II-XII intact, oriented X3, no focal deficits. Absent: pronater drift, facial droop, speech deficit - Skin Skin exam: Present: dry, intact Internal Medicine: Result - Labs CBC & Chem 7: 11/06/17 06:23 11/06/17 06:23 Labs: Short CBC 11/05/17 11/06/17 Range/Units 10:17 06:23 WBC 4.8 4.9 (4.3-11.1) K/mcL Hgb 13.3 D 13.5 (12.9-16.9) g/dL Hct 38.7 39.9 (37.5-50.1) % Plt Count 177 157 (140-400) K/mcL Neutrophils # 3.0 2.7 (1.6-8.9) K/mcL BMP 11/06/17 06:23 Sodium 132 L Potassium 4.5 Chloride 98 Carbon Dioxide 25 BUN 21 H Creatinine 0.82 Glucose 314 H Calcium 9.8 - ABG Interpretation ABG results: PT/INR, D-dimer PT 15.9 Seconds (9.4-12.1) H D 11/06/17 06:23 Consult Discharge Plan - Plan Referrals: Colin Wiley DO [Primary Care Provider] - 11/11/17 1:00 pm
[2017-11-06] MEDS: Gabapentin 300 MG CAPSULE PO SCH ×3 (10:29→21:22)
[2017-11-06] MEDS: amLODIPine 5 MG TABLET PO SCH (10:29)
[2017-11-06] MEDS: hydroCHLOROthiazide 25 MG TABLET PO SCH (10:29)
[2017-11-06] MEDS: Metoprolol XL (24 HR) Succ 50 MG TAB.ER.24H PO SCH (10:30)
[2017-11-06] MEDS: Insulin LISPRO 300 UNITS/3 ML VIAL SQ SCH ×4 (10:31→21:27)
[2017-11-06] MEDS: hydrOXYzine pamoate 25 MG CAPSULE PO PRN (16:28)
[2017-11-06] MEDS ORDERED: *HR* Warfarin 7.5 MG TABLET PO ONE (18:00)
[2017-11-06] MEDS: Acetaminophen 325 MG TABLET PO PRN (19:05)
[2017-11-06 23:43] LABS: Activated Partial Thrombo Time 199.7 Seconds (26.0-36.0)
[2017-11-06 23:49] LABS: Heparin anti-factor XA UFH 0.79 IU/mL (0.30-0.70)
[2017-11-07] MEDS: *HR* OxyCODONE/APAP 5/325 TABLET PO PRN (05:00)
[2017-11-07] MEDS: Ondansetron 4 MG/2 ML VIAL IVP SCH (06:38)
[2017-11-07 06:51] LABS: Activated Partial Thrombo Time 91.4 Seconds (26.0-36.0)
[2017-11-07 07:00] LABS: BUN/Creatinine Ratio 20 (6-26); Basophils # 0.1 K/mcL (0.0-0.2); Blood Urea Nitrogen 18 mg/dL (6-20); Calcium 9.7 mg/dL (8.6-10.3); Carbon Dioxide 27 mEq/L (23-29); Chloride 100 mEq/L (98-107); Eosinophils # 0.1 K/mcL (0.0-0.6); Eosinophils % 2.5 %; Glucose 174 mg/dL (70-105); Hematocrit 40.1 % (37.5-50.1); Hemoglobin 13.7 g/dL (12.9-16.9); Immature Granulocytes % 1.7 % (0-4); Lymphocytes # 1.7 K/mcL (0.6-4.6); Lymphocytes % 33.6 %; Mean Corpuscular HGB Conc 34.2 g/dL (31.6-35.5); Mean Platelet Volume 9.5 fL (9.4-12.4); Monocytes # 0.5 K/mcL (0.0-1.3); Monocytes % 9.7 %; Neutrophils # 2.7 K/mcL (1.6-8.9); Osmolality,Calculated 284 (280-300); Platelet Count 171 K/mcL (140-400); Red Blood Count 4.72 M/mcL (4.19-5.50); Red Cell Distribution Width 12.4 % (11.5-14.5); Segmented Neutrophils % 51.5 %; Sodium 134 mEq/L (136-145); eGFR For African Americans > 60 (> 60); eGFR For Non-African Americans > 60 (> 60)
[2017-11-07 07:23] VITALS: BP 123/87
[2017-11-07 08:49] LABS: INR 2.1; Prothrombin Time 23.5 Seconds (9.4-12.1)
[2017-11-07] MEDS: amLODIPine 5 MG TABLET PO SCH (09:38)
[2017-11-07] MEDS: hydrOXYzine pamoate 25 MG CAPSULE PO PRN (09:38)
[2017-11-07] MEDS: Metoprolol XL (24 HR) Succ 50 MG TAB.ER.24H PO SCH (09:38)
[2017-11-07] MEDS: Gabapentin 300 MG CAPSULE PO SCH (09:38)
[2017-11-07] MEDS: hydroCHLOROthiazide 25 MG TABLET PO SCH (09:39)
[2017-11-07] MEDS: OXYCODONE Oral CONC 10 MG/0.5 ML ORAL.SYG SL PRN (09:39)
[2017-11-07] MEDS: Insulin LISPRO 300 UNITS/3 ML VIAL SQ SCH (09:39)
--- NOTE | 2017-11-07 09:40 | Discharge Summary ---
Orders not resulted at time of discharge: Pending orders 11/07/17 14:00 PTT [Activated Partial Thrombo Time] [COAG] Timed 11/08/17 04:00 Basic Metabolic Panel AM 0400 CBC [Complete Blood Count] [HEME] AM 0400 PT/INR [Prothrombin Time INR] [COAG] AM 0400 11/09/17 04:00 Basic Metabolic Panel AM 0400 CBC [Complete Blood Count] [HEME] AM 0400 PT/INR [Prothrombin Time INR] [COAG] AM 0400 11/10/17 04:00 Basic Metabolic Panel AM 0400 CBC [Complete Blood Count] [HEME] AM 0400 PT/INR [Prothrombin Time INR] [COAG] AM 0400 11/11/17 04:00 Basic Metabolic Panel AM 0400 CBC [Complete Blood Count] [HEME] AM 0400 PT/INR [Prothrombin Time INR] [COAG] AM 0400 Date of Encounter: 11/07/17 Time of Encounter: 09:30 - Discharge Diagnosis (1) Pulmonary embolus Priority: Primary Status: Acute Assessment and Plan: 52 year old male with known hx of Factor V leiden mutation w/ multiple previous DVT and PE came in with shortness of breath and left shoulder pain. Patient has known chronic PE and DVT's, and workup at [facility] is suggestive of acute DVT in left UE. Doppler performed in [place] ED identified superficial thrombosis but no DVT in left UE. on chart review, patient has reportedly out of place IVC filter. CT chest and shoulder showed no evidence of DVT. PA and lateral cxr showed no displacement of IVC filter. Patient has been seen by vascular surgery who recommend no acute surgical intervention CT angio chest negative for PE. Will continue bridging with heparin to warfarin. PAteint's INR was 2.1 today. he will be discharged oncoumadin to follow up with his PCP Qualifiers: Pulmonary embolism type: other Chronicity: unspecified Acute cor pulmonale presence: without acute cor pulmonale Qualified Code(s): I26.99 - Other pulmonary embolism without acute cor pulmonale (2) Diabetes Priority: Primary Status: Acute Assessment and Plan: will monitor BG. hold home metformin during hospitalization. Qualifiers: Diabetes mellitus type: type 2 Diabetes mellitus termite treater insulin use: without termite treater use Diabetes mellitus complication status: without complication Qualified Code(s): E11.9 - Type 2 diabetes mellitus without complications (3) Hypertension Priority: Primary Status: Chronic Assessment and Plan: will continue to monitor. continue home Rx Qualifiers: Hypertension type: essential hypertension Qualified Code(s): I10 - Essential (primary) hypertension (4) DVT prophylaxis Priority: Secondary Status: Acute Assessment and Plan: currently on heparin. (5) Left upper arm pain Priority: Secondary Status: Acute Assessment and Plan: likely musculoskeletal. Pain control as needed. CT shoulder negative for any acute findings such as clots or fracture (6) EDEN (obstructive sleep apnea) Priority: Secondary Status: Chronic Assessment and Plan: Ordered CPAP at night (7) Factor V Leiden Priority: Secondary Status: Chronic Assessment and Plan: see above (8) Obesity (BMI 30.0-34.9) Priority: Secondary Status: Chronic Assessment and Plan: chronic. educated patient on weight loss benefits Hospital course: Mr. Knight is a 52 year old male - Time Spent with Patient Total time spent providing and/or coordinating discharge services: - Discharge Medications Prescriptions: OxyCODONE/APAP 5/325 [Percocet 5/325 MG] 1 each PO Q4HR PRN 4 Days #14 tablet PRN Reason: moderate to severe Pain Warfarin [Coumadin] 5 mg PO 1800 #30 tablet Home Medications: metFORMIN [Glucophage] 1,000 mg PO BID 10/06/15 [History] amLODIPine [Norvasc] 5 mg PO DAILY 01/27/17 [History] Amitriptyline HCl 100 mg PO HS 04/26/17 [History] Gabapentin [Neurontin] 600 mg PO TID 04/26/17 [History] Tizanidine HCl 4 mg PO Q8H PRN 04/26/17 [History] Losartan/Hydrochlorothiazide [Losartan-Hctz 100-12.5 mg Tab] 1 each PO DAILY 02/11 [History] HydrOXYzine Pamoate [Vistaril] 50 mg PO Q6H PRN 09/22/17 [History] Metoprolol XL (24 HR) Succ [Toprol Xl] 100 mg PO DAILY 09/22/17 [History] Sertraline [Zoloft] 50 mg PO DAILY 09/22/17 [History] OxyCODONE/APAP 5/325 [Percocet 5/325 MG] 1 each PO Q4HR PRN 4 Days #14 tablet 05 /14/18 [Rx] Warfarin [Coumadin] 5 mg PO 1800 #30 tablet 11/07/17 [Rx] Allergies/Adverse Reactions: 3 Allergy/AdvReac Type Severity Reaction Status Date / Time wasp maggy Allergy Anaphylaxis Uncoded 08/04/17 07:30 Date of admission: 11/02/17 23:36 Primary care physician: Colin Wiley DO Consults: 11/03/17 12:21 Consult to Vascular Surgery [CONS] Routine Consulting Provider: Vascular Surgery Lety Reason for Consult: displaced ivc filter. spoke with dr victor Call Completed: Yes - Constitutional Vitals: Temp Pulse Resp BP Pulse Ox 98.0 F 91 16 123/87 93 11/07/17 07:22 11/07/17 07:22 11/07/17 07:22 11/07/17 07:22 11/07/17 07:22 General appearance: Present: cooperative, A&O X 3, pleasant, no acute distress, obese, answers questions appropriately - Head Head exam: Present: atraumatic, normocephalic - Eye Eye exam: Present: PERRL, conjuntiva pink, sclera anicteric Pupils: Present: PERRL - Neck Neck exam general surgery: Present: supple, trachea midline. Absent: lymphadenopathy - Respiratory Respiratory exam: Present: CTAB. Absent: accessory muscle use, rales, rhonchi, wheezes - Cardiovascular Cardiovascular exam: Present: RRR, +S1, +S2. Absent: diastolic murmur, gallop, rubs, systolic murmur - GI/Abdominal GI/Abdominal exam: Present: normal bowel sounds, soft, no peritoneal signs. Absent: distended, tenderness - Extremities Exam Extremities exam: Present: warm, radial pulses palpable and symmetrical. Absent : calf tenderness, cyanotic, pedal edema - Neurological Exam Neurological exam: Present: CN II-XII intact, oriented X3, no focal deficits. Absent: pronater drift, facial droop, speech deficit - Skin Skin exam: Present: dry, intact - Patient Status Disposition: Home, Self-Care Condition: Fair - Discharge Instructions Instructions: Pulmonary Embolism (DC), Diabetes Mellitus Type 2 in Adults (DC) , Chronic Hypertension (DC) Follow Up With: Colin Wiley DO [Primary Care Provider] - 05/18/18 1:00 pm - VTE Documentation of Mechanical Device: Graduated compression elastic hosiery
== END 2017-11-07 11:55 | disposition home or self-care (01) | DRG 176 ==
LOC: 2NENU 18:52 → EMEROO 18:52 → 2NENU 23:49
PROVIDERS: ADMIT Pediatrics; ATTEND Pediatrics

== ENCOUNTER 2019-06-15 14:18 | Observation (INO) ==
[2019-06-15] MEDS ORDERED: 0.9 % Sodium Chloride 1,000 ML IVC ONE (14:58)
[2019-06-15 15:21] LABS: Hematocrit 42.1 % (37.5-50.1); Hemoglobin 14.1 g/dL (12.9-16.9); Mean Corpuscular HGB Conc 33.5 g/dL (31.6-35.5); Mean Corpuscular Hemoglobin 31.3 pg (28.0-33.3); Mean Corpuscular Volume 93.3 fL (83.0-100.0); Mean Platelet Volume 10.2 fL (9.4-12.4); Platelet Count 162 K/mcL (140-400); Red Blood Count 4.51 M/mcL (4.19-5.50); White Blood Count 5.8 K/mcL (4.3-11.1)
[2019-06-15 15:38] LABS: Alanine Aminotransferase 27 Units/L (7-52); Albumin 3.8 g/dL (3.5-5.7); Albumin/Globulin Ratio 1.5 (1.1-2.2); Alkaline Phosphatase 66 Units/L (34-104); Aspartate Amino Transferase 19 Units/L (13-39); BUN/Creatinine Ratio 17 (6-26); Bilirubin,Indirect 0.2 mg/dL (0.0-1.0); Bilirubin,Total 0.2 mg/dL (0.3-1.0); Blood Urea Nitrogen 16 mg/dL (6-20); Calcium 8.3 mg/dL (8.6-10.3); Carbon Dioxide 25 mEq/L (23-29); Chloride 100 mEq/L (98-107); Globulin 2.5 g/dL (2.4-3.5); Glucose 261 mg/dL (70-105); Osmolality,Calculated 290 (280-300); Potassium 3.8 mEq/L (3.5-5.1); Sodium 135 mEq/L (136-145); Total Protein 6.3 g/dL (6.4-8.9); eGFR For African Americans > 60 (> 60); eGFR For Non-African Americans > 60 (> 60)
[2019-06-15 16:11] LABS: Bilirubin,Urine Negative (Negative); Blood,Urine Negative (Negative); Color,Urine Yellow (Yellow); Glucose,Urine (UA) 500 mg/dL (Normal); Ketones,Urine Negative (Negative); Leukocyte Esterase,Urine Negative (Negative); Nitrite,Urine Negative (Negative); PH,Urine 6.5 pH Units (5.0-8.0); Protein,Urine Negative (Neg-Trace); Specific Gravity,Urine 1.023 (1.010-1.025); Urobilinogen,Urine Normal (Normal)
[2019-06-15 16:12] LABS: Clarity,Urine Clear (Clear)
[2019-06-15] MEDS ORDERED: Isovue-370 500 ML BOTTLE IVP ONE (16:17)
[2019-06-15 16:22] LABS: Bacteria,Urine None Seen per hpf (None-Few); Hyaline Casts,Urine None Seen per lpf (None-Few); Squamous Epithelial Cell,Urine None Seen per lpf (None-Few); WBC,Urine 0-3 per hpf (0-3)
[2019-06-15 17:13] LABS: Amphetamine Screen,Urine Negative ng/mL (Cutoff=1000); Barbiturate Screen,Urine Negative ng/mL (Cutoff=200); Benzodiazepines Screen,Urine Negative ng/mL (Cutoff=200); Cannabinoid Screen,Urine Negative ng/mL (Cutoff = 50); Cocaine Screen,Urine Negative ng/mL (Cutoff= 300); Opiate Screen,Urine Negative ng/mL (Cutoff=300); Phencyclidine Screen,Urine Negative ng/mL (Cutoff=25)
[2019-06-15] MEDS ORDERED: Naloxone 0.4 MG/ML INJ IVP PRN (17:36)
[2019-06-15] MEDS ORDERED: Ondansetron ODT 4 MG TAB.RAPDIS SL PRN (17:36)
[2019-06-15] MEDS ORDERED: *HR* Promethazine 25 MG/ML VIAL IVP PRN (17:36)
[2019-06-15] MEDS ORDERED: Nitroglycerin 0.4 MG TAB.SUBL SL PRN (17:41)
[2019-06-15 17:42] LABS: Creatine Kinase 87 Units/L (30-223)
[2019-06-15] MEDS ORDERED: Topiramate 25 MG TABLET PO SCH (18:00)
[2019-06-15] MEDS ORDERED: *HR* Rivaroxaban 10 MG TABLET PO SCH (18:00)
[2019-06-15] MEDS ORDERED: Dextrose Gel 15 GM/37.5 ML TUBE PO PRN ×2 (18:05)
[2019-06-15] MEDS ORDERED: D5% in Water 1,000 ML IVC PRN (18:05)
[2019-06-15] MEDS ORDERED: *HR* Dextrose 50 % in Water (Syg) 50 ML SYRINGE IVP PRN (18:05)
[2019-06-15] MEDS: clonazePAM 1 MG TABLET PO SCH (19:46)
[2019-06-15] MEDS: OXcarbazepine 150 MG TABLET PO SCH (19:46)
[2019-06-15] MEDS: hydrALAZINE 25 MG TABLET PO SCH (19:46)
[2019-06-15] MEDS ORDERED: Insulin LISPRO 300 UNITS/3 ML VIAL SQ SCH (21:00)
[2019-06-15] MEDS ORDERED: Metoprolol XL (24 HR) Succ 50 MG TAB.ER.24H PO SCH (21:00)
[2019-06-16] MEDS ORDERED: Acetaminophen 325 MG TABLET PO ONE (00:12)
[2019-06-16 00:44] LABS: Hematocrit 38.9 % (37.5-50.1); Hemoglobin 13.2 g/dL (12.9-16.9); Mean Corpuscular HGB Conc 33.9 g/dL (31.6-35.5); Mean Corpuscular Hemoglobin 30.6 pg (28.0-33.3); Mean Corpuscular Volume 90.3 fL (83.0-100.0); Mean Platelet Volume 10.3 fL (9.4-12.4); Platelet Count 154 K/mcL (140-400); Red Blood Count 4.31 M/mcL (4.19-5.50)
[2019-06-16 01:01] LABS: BUN/Creatinine Ratio 16 (6-26); Blood Urea Nitrogen 14 mg/dL (6-20); Calcium 8.4 mg/dL (8.6-10.3); Carbon Dioxide 27 mEq/L (23-29); Chloride 103 mEq/L (98-107); Glucose 263 mg/dL (70-105); Osmolality,Calculated 294 (280-300); Potassium 3.8 mEq/L (3.5-5.1); Sodium 137 mEq/L (136-145); eGFR For African Americans > 60 (> 60); eGFR For Non-African Americans > 60 (> 60)
[2019-06-16] MEDS ORDERED: SUMAtriptan succinate 25 MG TABLET PO ONE (04:29)
[2019-06-16] MEDS: OXcarbazepine 150 MG TABLET PO SCH (09:14)
[2019-06-16] MEDS: hydrALAZINE 25 MG TABLET PO SCH (09:15)
[2019-06-16] MEDS: Insulin LISPRO 300 UNITS/3 ML VIAL SQ SCH ×2 (09:15→12:34)
[2019-06-16] MEDS: clonazePAM 1 MG TABLET PO SCH (09:15)
[2019-06-16 16:31] VITALS: BP 129/73
== END 2019-06-16 17:49 | disposition home or self-care (01) ==
LOC: EMEROOARM 14:18 → 3BNU 14:18 → SUATTDRO 18:05 → 3BNU 18:57
PROVIDERS: ADMIT Family Medicine; ATTEND Family Medicine

== ENCOUNTER 2019-07-11 16:50 | Observation (INO) ==
[2019-07-11] MEDS ORDERED: Morphine Sulfate 2 MG/ML SYRINGE IVP STA (17:47)
[2019-07-11] MEDS ORDERED: Ondansetron 4 MG/2 ML VIAL IVP ONE (17:50)
[2019-07-11] MEDS ORDERED: 0.9 % Sodium Chloride 500 ML IVC ONE (17:51)
[2019-07-11 18:19] LABS: Hematocrit 40.7 % (37.5-50.1); Hemoglobin 14.5 g/dL (12.9-16.9); Mean Corpuscular HGB Conc 35.6 g/dL (31.6-35.5); Mean Corpuscular Hemoglobin 31.1 pg (28.0-33.3); Mean Corpuscular Volume 87.3 fL (83.0-100.0); Mean Platelet Volume 9.9 fL (9.4-12.4); Platelet Count 175 K/mcL (140-400); Red Blood Count 4.66 M/mcL (4.19-5.50); Red Cell Distribution Width 12.5 % (11.5-14.5); White Blood Count 6.7 K/mcL (4.3-11.1)
[2019-07-11 18:39] LABS: BUN/Creatinine Ratio 20 (6-26); Blood Urea Nitrogen 17 mg/dL (6-20); Calcium 10.1 mg/dL (8.6-10.3); Carbon Dioxide 25 mEq/L (23-29); Chloride 100 mEq/L (98-107); Glucose 241 mg/dL (70-105); Osmolality,Calculated 295 (280-300); Potassium 4.6 mEq/L (3.5-5.1); Sodium 138 mEq/L (136-145); eGFR For African Americans > 60 (> 60); eGFR For Non-African Americans > 60 (> 60)
[2019-07-11] MEDS ORDERED: Prochlorperazine 10 MG/2 ML VIAL IVP STA (20:14)
[2019-07-11] MEDS ORDERED: 0.9 % Sodium Chloride 1,000 ML IVC ONE (20:14)
[2019-07-11 21:21] LABS: Bilirubin,Urine Negative (Negative); Blood,Urine Negative (Negative); Clarity,Urine Clear (Clear); Color,Urine Yellow (Yellow); Glucose,Urine (UA) 500 mg/dL (Normal); Ketones,Urine Negative (Negative); Leukocyte Esterase,Urine Negative (Negative); Nitrite,Urine Negative (Negative); Protein,Urine Negative (Neg-Trace); Specific Gravity,Urine 1.026 (1.010-1.025); Urobilinogen,Urine Normal (Normal)
[2019-07-11] MEDS ORDERED: 0.9 % Sodium Chloride 1,000 ML IVC SCH (23:45)
[2019-07-11] MEDS ORDERED: Ondansetron 4 MG/2 ML VIAL IVP PRN (23:56)
[2019-07-11] MEDS ORDERED: Naloxone 0.4 MG/ML INJ IVP PRN (23:56)
[2019-07-12] MEDS ORDERED: *HR* Dextrose 50 % in Water (Syg) 50 ML SYRINGE IVP PRN (01:34)
[2019-07-12] MEDS ORDERED: D5% in Water 1,000 ML IVC PRN (01:34)
[2019-07-12] MEDS ORDERED: Dextrose Gel 15 GM/37.5 ML TUBE PO PRN ×2 (01:34)
[2019-07-12 01:39] LABS: Basophils % 0.4 %; Eosinophils # 0.1 K/mcL (0.0-0.6); Eosinophils % 0.9 %; Hematocrit 36.2 % (37.5-50.1); Immature Granulocytes % 0.5 % (0-4); Lymphocytes # 1.3 K/mcL (0.6-4.6); Mean Corpuscular HGB Conc 34.8 g/dL (31.6-35.5); Mean Corpuscular Volume 89.2 fL (83.0-100.0); Mean Platelet Volume 9.9 fL (9.4-12.4); Monocytes # 0.3 K/mcL (0.0-1.3); Monocytes % 5.8 %; Neutrophils # 3.8 K/mcL (1.6-8.9); Platelet Count 151 K/mcL (140-400); Red Blood Count 4.06 M/mcL (4.19-5.50); Red Cell Distribution Width 12.4 % (11.5-14.5); Segmented Neutrophils % 68.4 %; White Blood Count 5.5 K/mcL (4.3-11.1)
[2019-07-12 01:44] LABS: Hemoglobin 12.6 g/dL (12.9-16.9)
[2019-07-12 01:59] LABS: BUN/Creatinine Ratio 19 (6-26); Blood Urea Nitrogen 16 mg/dL (6-20); Calcium 8.8 mg/dL (8.6-10.3); Carbon Dioxide 24 mEq/L (23-29); Chloride 103 mEq/L (98-107); Glucose 169 mg/dL (70-105); Osmolality,Calculated 291 (280-300); Potassium 4.1 mEq/L (3.5-5.1); Sodium 138 mEq/L (136-145); eGFR For African Americans > 60 (> 60); eGFR For Non-African Americans > 60 (> 60)
[2019-07-12] MEDS ORDERED: *HR* Labetalol 20 MG/4 ML SYRINGE IVP PRN (03:48)
[2019-07-12] MEDS ORDERED: Insulin LISPRO 300 UNITS/3 ML VIAL SQ SCH ×2 (07:30→21:00)
[2019-07-12] MEDS ORDERED: hydrALAZINE 25 MG TABLET PO SCH (08:00)
[2019-07-12] MEDS ORDERED: *HR* Metformin 500 MG TABLET PO SCH (09:00)
[2019-07-12] MEDS ORDERED: NON-FORMULARY MEDICATION 1 EACH EACH (Insulin Aspart Prot/Insuln Asp [Novolog Mix 70-30 Fl SQ SCH (09:00)
[2019-07-12] MEDS ORDERED: clonazePAM 0.5 MG TABLET PO SCH (09:00)
[2019-07-12] MEDS ORDERED: Fluticasone Propionate Nasal 50 MCG/SPRAY BOTTLE NS SCH (09:00)
[2019-07-12] MEDS ORDERED: SEMAGLUTIDE 0.25 MG SQ SCH (09:00)
[2019-07-12] MEDS ORDERED: Venlafaxine XR (24 HR) 150 MG CAP.ER.24H PO SCH (09:00)
[2019-07-12] MEDS ORDERED: OXcarbazepine 150 MG TABLET PO SCH (09:00)
[2019-07-12] MEDS ORDERED: amLODIPine 5 MG TABLET PO SCH (09:00)
[2019-07-12 10:20] VITALS: BP 175/95
[2019-07-12] MEDS ORDERED: *HR* Rivaroxaban 10 MG TABLET PO SCH (18:00)
[2019-07-12] MEDS ORDERED: Insulin DETEMIR 100 UNIT/ML X5UNITS SQ SCH (21:00)
[2019-07-12] MEDS ORDERED: Metoprolol XL (24 HR) Succ 50 MG TAB.ER.24H PO SCH (21:00)
[2019-07-16 01:49] LABS: Metanephrine, Plasma <0.10 nmol/L (0.00-0.49)
== END 2019-07-12 11:30 | disposition home or self-care (01) ==
LOC: 3ANU 16:50 → EMEROOARM 16:50 → SUATTDRO 23:27 → 3ANU 23:55
PROVIDERS: ADMIT Internal Medicine; ATTEND Internal Medicine

== ENCOUNTER 2019-10-01 02:03 | Observation (INO) ==
[2019-10-01] MEDS ORDERED: Naloxone 0.4 MG/ML INJ IVP PRN (04:19)
[2019-10-01] MEDS ORDERED: Ondansetron 4 MG/2 ML VIAL IVP PRN (04:19)
[2019-10-01] MEDS ORDERED: Acetaminophen 325 MG TABLET PO PRN (04:19)
[2019-10-01] MEDS ORDERED: *HR* LORazepam 2 MG/ML VIAL IVP PRN ×3 (04:24)
[2019-10-01] MEDS ORDERED: D5% in Water 1,000 ML IVC PRN (04:25)
[2019-10-01] MEDS ORDERED: *HR* Dextrose 50 % in Water (Syg) 50 ML SYRINGE IVP PRN (04:25)
[2019-10-01] MEDS ORDERED: Dextrose Gel 15 GM/37.5 ML TUBE PO PRN ×2 (04:25)
[2019-10-01] MEDS ORDERED: 0.9 % Sodium Chloride 1,000 ML IVC SCH (04:30)
[2019-10-01 05:23] LABS: VBG HCO3 27 mEq/L (21-27); VBG PCO2 49 mmHg (41-51); VBG PH 7.34 pH Units (7.32-7.42); VBG PO2 93 mmHg (25-50)
[2019-10-01 05:41] LABS: BUN/Creatinine Ratio 18 (6-26); Blood Urea Nitrogen 16 mg/dL (6-20); Carbon Dioxide 24 mEq/L (23-29); Chloride 101 mEq/L (98-107); Glucose 260 mg/dL (70-105); Osmolality,Calculated 294 (280-300); Potassium 4.4 mEq/L (3.5-5.1); Sodium 137 mEq/L (136-145); eGFR For African Americans > 60 (> 60); eGFR For Non-African Americans > 60 (> 60)
[2019-10-01 06:42] VITALS: BP 153/90
[2019-10-01] MEDS ORDERED: Insulin LISPRO 300 UNITS/3 ML VIAL SQ SCH (07:30)
[2019-10-01] MEDS ORDERED: Thiamine (B-1) 100 MG TABLET PO SCH (09:00)
[2019-10-01] MEDS ORDERED: Folic Acid 1 MG TABLET PO SCH (09:00)
== END 2019-10-01 10:30 | disposition home or self-care (01) ==
LOC: 3BNU → SUATTDRO 03:23
PROVIDERS: ADMIT Internal Medicine; ATTEND Internal Medicine

== ENCOUNTER 2021-04-24 20:21 | Observation (INO) ==
[2021-04-24 21:55] LABS: Bilirubin,Urine Negative (Negative); Blood,Urine Negative (Negative); Clarity,Urine Clear (Clear); Color,Urine Colorless (Yellow); Glucose,Urine (UA) 200 mg/dL (Normal); Ketones,Urine Negative (Negative); Leukocyte Esterase,Urine Negative (Negative); Mucus,Urine Few per lpf (None-Few); Nitrite,Urine Negative (Negative); Protein,Urine Negative (Neg-Trace); RBC,Urine 0-3 per hpf (0-3); Specific Gravity,Urine 1.019 (1.010-1.025); Squamous Epithelial Cell,Urine Few per hpf (None-Few); Urobilinogen,Urine Normal (Normal); WBC,Urine 0-3 per hpf (0-3)
[2021-04-24] MEDS ORDERED: Orphenadrine 60 MG/2 ML VIAL IVP ONE (22:20)
[2021-04-24] MEDS ORDERED: *HR* FentaNYL (PF) 100 MCG/2 ML VIAL IVP ONE (22:20)
[2021-04-24] MEDS ORDERED: Ketorolac 15 MG/ML VIAL IVP ONE (22:20)
[2021-04-25] MEDS ORDERED: *HR* FentaNYL (PF) 100 MCG/2 ML VIAL IVP ONE (01:33)
[2021-04-25] MEDS ORDERED: Acetaminophen 325 MG TABLET PO PRN (03:06)
[2021-04-25] MEDS ORDERED: Naloxone 0.4 MG/ML INJ IVP PRN (03:06)
[2021-04-25] MEDS ORDERED: D5% in Water 1,000 ML IVC PRN (03:06)
[2021-04-25] MEDS ORDERED: *HR* Dextrose 50 % in Water (Syg) 50 ML SYRINGE IVP PRN (03:06)
[2021-04-25] MEDS ORDERED: Dextrose Gel 15 GM/37.5 ML TUBE PO PRN ×2 (03:06)
[2021-04-25] MEDS ORDERED: Ondansetron 4 MG/2 ML VIAL IVP PRN (03:06)
[2021-04-25] MEDS ORDERED: *HR* Promethazine 25 MG/ML VIAL IM PRN (03:06)
[2021-04-25] MEDS ORDERED: 0.9 % Sodium Chloride 1,000 ML IVC SCH (03:15)
[2021-04-25 03:32] LABS: Basophils % 0.6 %; Eosinophils # 0.1 K/mcL (0.0-0.6); Hematocrit 39.7 % (37.5-50.1); Hemoglobin 13.5 g/dL (12.9-16.9); Immature Granulocytes % 0.3 % (0-4); Lymphocytes # 1.4 K/mcL (0.6-4.6); Lymphocytes % 39.6 %; Mean Corpuscular Hemoglobin 30.4 pg (28.0-33.3); Mean Corpuscular Volume 89.4 fL (83.0-100.0); Mean Platelet Volume 9.6 fL (9.4-12.4); Monocytes # 0.3 K/mcL (0.0-1.3); Monocytes % 7.8 %; Neutrophils # 1.8 K/mcL (1.6-8.9); Platelet Count 141 K/mcL (140-400); Red Blood Count 4.44 M/mcL (4.19-5.50); Red Cell Distribution Width 12.1 % (11.5-14.5); Segmented Neutrophils % 48.7 %; White Blood Count 3.6 K/mcL (4.3-11.1)
[2021-04-25 03:39] LABS: Prothrombin Time 10.7 Seconds (9.4-12.1)
[2021-04-25 03:50] LABS: BUN/Creatinine Ratio 22 (6-26); Blood Urea Nitrogen 22 mg/dL (6-20); Calcium 8.8 mg/dL (8.6-10.3); Carbon Dioxide 27 mEq/L (23-29); Chloride 99 mEq/L (98-107); Glucose 143 mg/dL (70-105); Osmolality,Calculated 288 (280-300); Potassium 3.9 mEq/L (3.5-5.1); Sodium 136 mEq/L (136-145); eGFR For African Americans > 60 (> 60); eGFR For Non-African Americans > 60 (> 60)
[2021-04-25] MEDS: tiZANidine 4 MG TABLET PO PRN ×3 (04:47→23:31)
[2021-04-25] MEDS: *HR* OxyCODONE Immed Rel 5 MG TABLET PO PRN ×3 (04:47→18:26)
[2021-04-25] MEDS ORDERED: Insulin LISPRO 300 UNITS/3 ML VIAL SUBQ SCH (06:00)
[2021-04-25] MEDS ORDERED: diazePAM 5 MG TABLET PO PRN (11:29)
[2021-04-25] MEDS: amLODIPine 5 MG TABLET PO SCH (13:06)
[2021-04-25] MEDS: hydrALAZINE 25 MG TABLET PO SCH ×2 (13:06→18:26)
[2021-04-25] MEDS: *HR* HYDROcodone/Acet 5/325 mg TABLET PO PRN ×2 (15:12→22:40)
[2021-04-25] MEDS: OXcarbazepine 150 MG TABLET PO SCH ×2 (16:16→20:07)
[2021-04-25] MEDS: Insulin LISPRO 300 UNITS/3 ML VIAL SUBQ SCH ×2 (18:26→21:18)
[2021-04-25] MEDS: Metoprolol XL (24 HR) Succ 50 MG TAB.ER.24H PO SCH (20:06)
[2021-04-26 04:02] LABS: Basophils % 0.6 %; Eosinophils # 0.1 K/mcL (0.0-0.6); Eosinophils % 2.2 %; Hematocrit 36.5 % (37.5-50.1); Hemoglobin 12.4 g/dL (12.9-16.9); Immature Granulocytes % 0.3 % (0-4); Lymphocytes # 1.1 K/mcL (0.6-4.6); Lymphocytes % 33.7 %; Mean Corpuscular Hemoglobin 30.8 pg (28.0-33.3); Mean Corpuscular Volume 90.6 fL (83.0-100.0); Mean Platelet Volume 9.9 fL (9.4-12.4); Monocytes # 0.2 K/mcL (0.0-1.3); Monocytes % 7.7 %; Neutrophils # 1.7 K/mcL (1.6-8.9); Platelet Count 118 K/mcL (140-400); Red Blood Count 4.03 M/mcL (4.19-5.50); Red Cell Distribution Width 11.9 % (11.5-14.5); Segmented Neutrophils % 55.5 %; White Blood Count 3.1 K/mcL (4.3-11.1)
[2021-04-26 04:18] LABS: BUN/Creatinine Ratio 21 (6-26); Blood Urea Nitrogen 18 mg/dL (6-20); Carbon Dioxide 28 mEq/L (23-29); Chloride 100 mEq/L (98-107); Glucose 206 mg/dL (70-105); Osmolality,Calculated 290 (280-300); Potassium 4.1 mEq/L (3.5-5.1); Sodium 136 mEq/L (136-145); eGFR For African Americans > 60 (> 60); eGFR For Non-African Americans > 60 (> 60)
[2021-04-26 04:21] LABS: Calcium 8.7 mg/dL (8.6-10.3)
[2021-04-26] MEDS: *HR* OxyCODONE Immed Rel 5 MG TABLET PO PRN ×3 (05:20→18:54)
[2021-04-26] MEDS: *HR* HYDROcodone/Acet 5/325 mg TABLET PO PRN ×3 (08:15→22:57)
[2021-04-26] MEDS: Insulin LISPRO 300 UNITS/3 ML VIAL SUBQ SCH ×4 (08:40→20:47)
[2021-04-26] MEDS: amLODIPine 5 MG TABLET PO SCH (08:40)
[2021-04-26] MEDS: OXcarbazepine 150 MG TABLET PO SCH ×3 (08:40→20:54)
[2021-04-26] MEDS: hydrALAZINE 25 MG TABLET PO SCH ×3 (08:40→16:43)
[2021-04-26] MEDS: tiZANidine 4 MG TABLET PO PRN (16:41)
[2021-04-26] MEDS: Metoprolol XL (24 HR) Succ 50 MG TAB.ER.24H PO SCH (20:54)
[2021-04-27] MEDS: *HR* OxyCODONE Immed Rel 5 MG TABLET PO PRN ×2 (00:58→06:59)
[2021-04-27 04:02] LABS: Immature Granulocytes % 0.4 % (0-4); Mean Corpuscular Volume 89.2 fL (83.0-100.0)
[2021-04-27 04:04] LABS: Basophils % 0.6 %; Eosinophils # 0.1 K/mcL (0.0-0.6); Eosinophils % 1.7 %; Hematocrit 41.5 % (37.5-50.1); Hemoglobin 13.9 g/dL (12.9-16.9); Immature Platelets 3.1 % (1.1-6.1); Lymphocytes # 1.4 K/mcL (0.6-4.6); Mean Corpuscular HGB Conc 33.5 g/dL (31.6-35.5); Mean Corpuscular Hemoglobin 29.9 pg (28.0-33.3); Mean Platelet Volume 9.9 fL (9.4-12.4); Monocytes # 0.3 K/mcL (0.0-1.3); Monocytes % 7.1 %; Neutrophils # 2.9 K/mcL (1.6-8.9); Platelet Count 150 K/mcL (140-400); Red Blood Count 4.65 M/mcL (4.19-5.50); Red Cell Distribution Width 12.3 % (11.5-14.5); Segmented Neutrophils % 61.2 %; White Blood Count 4.8 K/mcL (4.3-11.1)
[2021-04-27 06:42] VITALS: TEMP 97.5
[2021-04-27] MEDS: amLODIPine 5 MG TABLET PO SCH (08:39)
[2021-04-27] MEDS: hydrALAZINE 25 MG TABLET PO SCH (08:39)
[2021-04-27] MEDS: Insulin LISPRO 300 UNITS/3 ML VIAL SUBQ SCH (08:39)
[2021-04-27] MEDS: OXcarbazepine 150 MG TABLET PO SCH (08:39)
[2021-04-27 11:15] VITALS: BP 133/91; PULSE 92; O2SAT 96
== END 2021-04-27 12:45 | disposition home or self-care (01) ==
LOC: EMEROOARM 20:21 → 4WAOSI 20:21 → SUATTDRO 04-25 03:05 → 4WAOSI 04-25 03:32
PROVIDERS: ADMIT Family Medicine; ATTEND Internal Medicine

== ENCOUNTER 2021-07-15 19:47 | Inpatient (IN) ==
[2021-07-15] MEDS ORDERED: Isovue-370 500 ML BOTTLE IVP ONE (20:07)
[2021-07-15 20:22] LABS: Basophils % 0.4 %; Eosinophils # 0.1 K/mcL (0.0-0.6); Eosinophils % 1.4 %; Hematocrit 36.4 % (37.5-50.1); Hemoglobin 12.5 g/dL (12.9-16.9); Immature Granulocytes % 0.7 % (0-4); Lymphocytes # 1.8 K/mcL (0.6-4.6); Lymphocytes % 17.7 %; Mean Corpuscular HGB Conc 34.3 g/dL (31.6-35.5); Mean Corpuscular Hemoglobin 31.6 pg (28.0-33.3); Mean Corpuscular Volume 92.2 fL (83.0-100.0); Mean Platelet Volume 9.8 fL (9.4-12.4); Monocytes # 0.7 K/mcL (0.0-1.3); Monocytes % 7.2 %; Neutrophils # 7.4 K/mcL (1.6-8.9); Platelet Count 187 K/mcL (140-400); Red Blood Count 3.95 M/mcL (4.19-5.50); Red Cell Distribution Width 12.3 % (11.5-14.5); Segmented Neutrophils % 72.6 %; White Blood Count 10.2 K/mcL (4.3-11.1)
[2021-07-15 20:30] LABS: Prothrombin Time 10.6 Seconds (9.4-12.1)
[2021-07-15 20:32] LABS: Activated Partial Thrombo Time 30.7 Seconds (26.0-36.0)
[2021-07-15 20:48] LABS: Alanine Aminotransferase 28 Units/L (7-52); Albumin 4.2 g/dL (3.5-5.7); Albumin/Globulin Ratio 1.6 (1.1-2.2); Alkaline Phosphatase 46 Units/L (34-104); Aspartate Amino Transferase 13 Units/L (13-39); BUN/Creatinine Ratio 30 (6-26); Bilirubin,Total 0.2 mg/dL (0.3-1.0); Blood Urea Nitrogen 27 mg/dL (6-20); Calcium 9.7 mg/dL (8.6-10.3); Carbon Dioxide 26 mEq/L (23-29); Chloride 102 mEq/L (98-107); Creatine Kinase 138 Units/L (30-223); Ethanol < 10 mg/dL (Less than 10); Globulin 2.6 g/dL (2.4-3.5); Glucose 106 mg/dL (70-105); Osmolality,Calculated 284 (280-300); Potassium 4.6 mEq/L (3.5-5.1); Sodium 134 mEq/L (136-145); Total Protein 6.8 g/dL (6.4-8.9); Troponin I < 0.03 ng/mL (< 0.04); eGFR For African Americans > 60 (> 60); eGFR For Non-African Americans > 60 (> 60)
[2021-07-15 21:00] LABS: Influenza A PCR Negative (Negative); Influenza B PCR Negative (Negative); Resp. Syncytial Virus PCR Negative (Negative)
[2021-07-15 21:01] LABS: SARS-CoV-2 by PCR (In House) Negative (Negative)
[2021-07-15 22:15] LABS: Bilirubin,Urine Negative (Negative); Blood,Urine Negative (Negative); Clarity,Urine Clear (Clear); Color,Urine Light-Yellow (Yellow); Glucose,Urine (UA) 300 mg/dL (Normal); Ketones,Urine Negative (Negative); Leukocyte Esterase,Urine Negative (Negative); Nitrite,Urine Negative (Negative); Protein,Urine Trace mg/dL (Neg-Trace); RBC,Urine 0-3 per hpf (0-3); Specific Gravity,Urine > 1.030 (1.010-1.025); Urobilinogen,Urine Normal (Normal); WBC,Urine 0-3 per hpf (0-3)
[2021-07-15 22:24] LABS: Amphetamine Screen,Urine Negative ng/mL (Cutoff=1000); Barbiturate Screen,Urine Negative ng/mL (Cutoff=200); Benzodiazepines Screen,Urine Positive ng/mL (Cutoff=200); Cannabinoid Screen,Urine Negative ng/mL (Cutoff = 50); Cocaine Screen,Urine Negative ng/mL (Cutoff= 300); Opiate Screen,Urine Negative ng/mL (Cutoff=300); Phencyclidine Screen,Urine Negative ng/mL (Cutoff=25)
[2021-07-16] MEDS ORDERED: Melatonin 3 MG TABLET PO PRN (00:33)
[2021-07-16] MEDS ORDERED: Ondansetron 4 MG/2 ML VIAL IVP PRN (00:33)
[2021-07-16] MEDS ORDERED: Naloxone 0.4 MG/ML INJ IVP PRN (00:33)
[2021-07-16] MEDS ORDERED: *HR* Dextrose 50 % in Water (Syg) 50 ML SYRINGE IVP PRN (00:52)
[2021-07-16] MEDS ORDERED: Acetaminophen 325 MG TABLET PO PRN (00:55)
[2021-07-16] MEDS ORDERED: cefTRIAXone 1,000 MG in 0.9 % Sodium Chloride Mini Bag 100 ML IVPB ONE (02:35)
[2021-07-16] MEDS ORDERED: Azithromycin 500 MG in 0.9 % Sodium Chloride 250 ML IVPB ONE (02:35)
[2021-07-16 02:38] LABS: Basophils % 0.4 %; Eosinophils # 0.2 K/mcL (0.0-0.6); Eosinophils % 1.8 %; Hematocrit 36.9 % (37.5-50.1); Hemoglobin 12.6 g/dL (12.9-16.9); Immature Granulocytes % 0.7 % (0-4); Lymphocytes # 1.8 K/mcL (0.6-4.6); Lymphocytes % 21.2 %; Mean Corpuscular HGB Conc 34.1 g/dL (31.6-35.5); Mean Corpuscular Hemoglobin 31.7 pg (28.0-33.3); Mean Corpuscular Volume 92.7 fL (83.0-100.0); Monocytes # 0.6 K/mcL (0.0-1.3); Monocytes % 6.6 %; Neutrophils # 5.8 K/mcL (1.6-8.9); Platelet Count 171 K/mcL (140-400); Red Blood Count 3.98 M/mcL (4.19-5.50); Red Cell Distribution Width 12.5 % (11.5-14.5); Segmented Neutrophils % 69.3 %; White Blood Count 8.3 K/mcL (4.3-11.1)
[2021-07-16 02:40] LABS: ABG Base Excess 1 mEq/L (-2 to 3); ABG HCO3 29 mEq/L (21-27); ABG Oxygen Saturation 88 % (95-98); ABG PCO2 57 mmHg (35-45); ABG PH 7.31 pH Units (7.32-7.45); ABG PO2 60 mmHg (85-104); ABG TCO2 30 mEq/L (20-26)
[2021-07-16 03:08] LABS: BUN/Creatinine Ratio 26 (6-26); Blood Urea Nitrogen 22 mg/dL (6-20); Calcium 9.5 mg/dL (8.6-10.3); Carbon Dioxide 26 mEq/L (23-29); Chloride 102 mEq/L (98-107); Glucose 130 mg/dL (70-105); Magnesium 1.6 mg/dL (1.6-2.6); Osmolality,Calculated 279 (280-300); Phosphorous 4.2 mg/dL (2.7-4.5); Potassium 4.2 mEq/L (3.5-5.1); Sodium 132 mEq/L (136-145); eGFR For African Americans > 60 (> 60); eGFR For Non-African Americans > 60 (> 60)
[2021-07-16] MEDS ORDERED: Ipratropium/Albuterol Neb 3 ML IH PRN (03:17)
[2021-07-16 03:19] LABS: Folate 12.6 ng/mL (3.0-16.0)
[2021-07-16] MEDS ORDERED: methylPREDNISolone 125 MG/2 ML VIAL IVP ONE (03:38)
[2021-07-16] MEDS ORDERED: Furosemide 40 MG/4 ML VIAL IVP ONE (03:38)
[2021-07-16 03:54] LABS: Adenovirus Not Detected (Not Detect); Bordetella Pertussis Not Detected (Not Detect); Chlamydophila pneumoniae Not Detected (Not Detect); Coronavirus 229E Not Detected (Not Detect); Coronavirus HKU1 Not Detected (Not Detect); Coronavirus NL63 Not Detected (Not Detect); Coronavirus OC43 Not Detected (Not Detect); Human Metapneumovirus Not Detected (Not Detect); Human Rhinovirus/Enterovirus Not Detected (Not Detect); Influenza A Subtype 2009 H1 Not Detected (Not Detect); Influenza B Not Detected (Not Detect); Mycoplasma pneumoniae Not Detected (Not Detect); Parainfluenza Virus 1 Not Detected (Not Detect); Parainfluenza Virus 2 Not Detected (Not Detect); Parainfluenza Virus 3 Not Detected (Not Detect); Parainfluenza Virus 4 Not Detected (Not Detect); Respiratory Syncytial Virus Not Detected (Not Detect); SARS-CoV-2 Not Detected (Not Detect)
[2021-07-16] MEDS: Insulin LISPRO 300 UNITS/3 ML VIAL SUBQ SCH ×5 (03:56→22:09)
[2021-07-16] MEDS ORDERED: Cyanocobalamin (B-12) 1,000 MCG/ML VIAL SQ ONE (04:06)
[2021-07-16 04:27] LABS: ABG Base Excess 5 mEq/L (-2 to 3); ABG HCO3 32 mEq/L (21-27); ABG Oxygen Saturation 99 % (95-98); ABG PCO2 59 mmHg (35-45); ABG PH 7.34 pH Units (7.32-7.45); ABG PO2 127 mmHg (85-104); ABG TCO2 34 mEq/L (20-26); Blood Gas Modality ASSIST CONTROL
[2021-07-16] MEDS ORDERED: Perflutren Lipid Microsphere 1.3 ML in 0.9 % Sodium Chloride 8.7 ML IVP PRN (08:28)
[2021-07-16] MEDS ORDERED: *HR* Heparin 5,000 UNIT/ML VIAL IVP PRN ×2 (10:49)
[2021-07-16] MEDS ORDERED: *HR* Heparin 5,000 UNIT/ML VIAL IVP ONE (10:49)
[2021-07-16] MEDS: Heparin 25,000UNIT/250ML 1/2NS 25,000 UNIT/250 ML IV.SOLN IVC SCH (11:37)
[2021-07-16] MEDS: Thiamine (B-1) 100 MG in 0.9 % Sodium Chloride 50 ML IVPB SCH ×2 (11:45→22:08)
[2021-07-16 12:05] LABS: Hematocrit 38.1 % (37.5-50.1); Hemoglobin 12.8 g/dL (12.9-16.9); Mean Corpuscular HGB Conc 33.6 g/dL (31.6-35.5); Mean Corpuscular Hemoglobin 31.4 pg (28.0-33.3); Mean Corpuscular Volume 93.4 fL (83.0-100.0); Mean Platelet Volume 9.8 fL (9.4-12.4); Platelet Count 183 K/mcL (140-400); Red Blood Count 4.08 M/mcL (4.19-5.50); Red Cell Distribution Width 12.5 % (11.5-14.5); White Blood Count 11.1 K/mcL (4.3-11.1)
[2021-07-16 12:13] LABS: Prothrombin Time 11.6 Seconds (9.4-12.1)
[2021-07-16 12:15] LABS: Activated Partial Thrombo Time 29.9 Seconds (26.0-36.0)
[2021-07-17 01:06] LABS: BUN/Creatinine Ratio 25 (6-26); Blood Urea Nitrogen 26 mg/dL (6-20); Calcium 9.8 mg/dL (8.6-10.3); Carbon Dioxide 30 mEq/L (23-29); Chloride 98 mEq/L (98-107); Glucose 233 mg/dL (70-105); Osmolality,Calculated 286 (280-300); Potassium 4.1 mEq/L (3.5-5.1); Sodium 132 mEq/L (136-145); eGFR For African Americans > 60 (> 60); eGFR For Non-African Americans > 60 (> 60)
[2021-07-17 02:14] LABS: Hematocrit 36.7 % (37.5-50.1); Hemoglobin 12.3 g/dL (12.9-16.9); Mean Corpuscular HGB Conc 33.5 g/dL (31.6-35.5); Mean Corpuscular Hemoglobin 31.1 pg (28.0-33.3); Mean Corpuscular Volume 92.7 fL (83.0-100.0); Mean Platelet Volume 10.4 fL (9.4-12.4); Platelet Count 193 K/mcL (140-400); Red Blood Count 3.96 M/mcL (4.19-5.50); Red Cell Distribution Width 12.6 % (11.5-14.5); White Blood Count 8.6 K/mcL (4.3-11.1)
[2021-07-17 02:47] LABS: Estimated Average Glucose 166 mg/dl; Hemoglobin A1C 7.4 %
[2021-07-17] MEDS: Heparin 25,000UNIT/250ML 1/2NS 25,000 UNIT/250 ML IV.SOLN IVC SCH (06:26)
[2021-07-17] MEDS: Azithromycin 500 MG in 0.9 % Sodium Chloride 250 ML IVPB SCH (06:27)
[2021-07-17 08:09] LABS: ABG Base Excess 2 mEq/L (-2 to 3); ABG HCO3 27 mEq/L (21-27); ABG Oxygen Saturation 99 % (95-98); ABG PCO2 44 mmHg (35-45); ABG PO2 128 mmHg (85-104); ABG TCO2 29 mEq/L (20-26); Blood Gas Pressure Support 14 cm H2O
[2021-07-17] MEDS ORDERED: cefTRIAXone 1,000 MG in 0.9 % Sodium Chloride Mini Bag 100 ML IVPB SCH (09:00)
[2021-07-17] MEDS: Insulin LISPRO 300 UNITS/3 ML VIAL SUBQ SCH ×3 (09:44→16:50)
[2021-07-17] MEDS: Thiamine (B-1) 100 MG in 0.9 % Sodium Chloride 50 ML IVPB SCH ×2 (11:35→20:57)
[2021-07-17] MEDS ORDERED: *HR* Rivaroxaban 10 MG TABLET PO SCH (18:00)
[2021-07-17] MEDS ORDERED: diazePAM 5 MG TABLET PO ONE (20:17)
[2021-07-17] MEDS ORDERED: Insulin LISPRO 300 UNITS/3 ML VIAL SUBQ SCH (21:00)
[2021-07-18 01:24] LABS: Hematocrit 36.1 % (37.5-50.1); Hemoglobin 12.2 g/dL (12.9-16.9); Mean Corpuscular HGB Conc 33.8 g/dL (31.6-35.5); Mean Corpuscular Hemoglobin 31.1 pg (28.0-33.3); Mean Corpuscular Volume 92.1 fL (83.0-100.0); Mean Platelet Volume 9.9 fL (9.4-12.4); Platelet Count 183 K/mcL (140-400); Red Blood Count 3.92 M/mcL (4.19-5.50); Red Cell Distribution Width 12.6 % (11.5-14.5); White Blood Count 5.5 K/mcL (4.3-11.1)
[2021-07-18 01:44] LABS: BUN/Creatinine Ratio 21 (6-26); Blood Urea Nitrogen 20 mg/dL (6-20); Calcium 9.7 mg/dL (8.6-10.3); Carbon Dioxide 29 mEq/L (23-29); Chloride 102 mEq/L (98-107); Glucose 140 mg/dL (70-105); Osmolality,Calculated 293 (280-300); Potassium 3.8 mEq/L (3.5-5.1); Sodium 139 mEq/L (136-145); eGFR For African Americans > 60 (> 60); eGFR For Non-African Americans > 60 (> 60)
[2021-07-18] MEDS: Azithromycin 500 MG in 0.9 % Sodium Chloride 250 ML IVPB SCH (05:52)
[2021-07-18] MEDS ORDERED: Metoprolol XL (24 HR) Succ 50 MG TAB.ER.24H PO SCH (08:15)
[2021-07-18] MEDS: Insulin LISPRO 300 UNITS/3 ML VIAL SUBQ SCH (08:38)
[2021-07-18] MEDS ORDERED: amLODIPine 5 MG TABLET PO SCH (09:00)
[2021-07-18 10:20] VITALS: BP 163/95; PULSE 113; TEMP 98.2; O2SAT 94
== END 2021-07-18 10:28 | disposition home or self-care (01) | DRG 637 ==
LOC: 3BNU 19:47 → EMEROOARM 19:47 → SUATTDRO 23:45 → 3BNU 07-16 00:24 → 2NNU 07-16 06:07 → 3BNU 07-16 19:44
PROVIDERS: ADMIT Internal Medicine; ATTEND Registered Nurse

== ENCOUNTER 2021-08-11 22:59 | Inpatient (IN) ==
[2021-08-12] MEDS ORDERED: Isovue-370 500 ML BOTTLE IVP ONE (00:04)
[2021-08-12 00:30] LABS: Basophils % 0.4 %; Eosinophils # 0.2 K/mcL (0.0-0.6); Eosinophils % 2.5 %; Hematocrit 38.2 % (37.5-50.1); Hemoglobin 12.7 g/dL (12.9-16.9); Immature Granulocytes % 0.6 % (0-4); Lymphocytes # 1.6 K/mcL (0.6-4.6); Lymphocytes % 24.4 %; Mean Corpuscular HGB Conc 33.2 g/dL (31.6-35.5); Mean Corpuscular Hemoglobin 30.1 pg (28.0-33.3); Mean Corpuscular Volume 90.5 fL (83.0-100.0); Mean Platelet Volume 9.9 fL (9.4-12.4); Monocytes # 0.6 K/mcL (0.0-1.3); Monocytes % 8.5 %; Neutrophils # 4.2 K/mcL (1.6-8.9); Platelet Count 196 K/mcL (140-400); Red Blood Count 4.22 M/mcL (4.19-5.50); Red Cell Distribution Width 12.5 % (11.5-14.5); Segmented Neutrophils % 63.6 %; White Blood Count 6.7 K/mcL (4.3-11.1)
[2021-08-12 00:36] LABS: Influenza A PCR Negative (Negative); Influenza B PCR Negative (Negative); Resp. Syncytial Virus PCR Negative (Negative)
[2021-08-12 00:38] LABS: SARS-CoV-2 by PCR (In House) Negative (Negative)
[2021-08-12 01:17] LABS: Alanine Aminotransferase 30 Units/L (7-52); Albumin 3.9 g/dL (3.5-5.7); Albumin/Globulin Ratio 1.4 (1.1-2.2); Alkaline Phosphatase 49 Units/L (34-104); Aspartate Amino Transferase 16 Units/L (13-39); BUN/Creatinine Ratio 23 (6-26); Bilirubin,Total 0.2 mg/dL (0.3-1.0); Blood Urea Nitrogen 23 mg/dL (6-20); Calcium 9.2 mg/dL (8.6-10.3); Carbon Dioxide 26 mEq/L (23-29); Chloride 103 mEq/L (98-107); Globulin 2.7 g/dL (2.4-3.5); Glucose 82 mg/dL (70-105); Osmolality,Calculated 287 (280-300); Potassium 3.8 mEq/L (3.5-5.1); Sodium 137 mEq/L (136-145); Total Protein 6.6 g/dL (6.4-8.9); Troponin I < 0.03 ng/mL (< 0.04); eGFR For African Americans > 60 (> 60); eGFR For Non-African Americans > 60 (> 60)
[2021-08-12] MEDS ORDERED: 0.9 % Sodium Chloride 1,000 ML IV ONE (01:23)
[2021-08-12] MEDS ORDERED: Ondansetron ODT 4 MG TAB.RAPDIS SL PRN (03:26)
[2021-08-12] MEDS ORDERED: Naloxone 0.4 MG/ML INJ IVP PRN (03:26)
[2021-08-12] MEDS ORDERED: Acetaminophen 325 MG TABLET PO PRN (03:26)
[2021-08-12] MEDS ORDERED: MOM Conc 10 ML UD.LIQ PO PRN (03:26)
[2021-08-12 04:08] LABS: Adenovirus Not Detected (Not Detect); Bordetella Pertussis Not Detected (Not Detect); Chlamydophila pneumoniae Not Detected (Not Detect); Coronavirus 229E Not Detected (Not Detect); Coronavirus HKU1 Not Detected (Not Detect); Coronavirus NL63 Not Detected (Not Detect); Coronavirus OC43 Not Detected (Not Detect); Human Metapneumovirus Not Detected (Not Detect); Human Rhinovirus/Enterovirus Not Detected (Not Detect); Influenza A Subtype 2009 H1 Not Detected (Not Detect); Influenza B Not Detected (Not Detect); Mycoplasma pneumoniae Not Detected (Not Detect); Parainfluenza Virus 1 Not Detected (Not Detect); Parainfluenza Virus 2 Not Detected (Not Detect); Parainfluenza Virus 3 Not Detected (Not Detect); Parainfluenza Virus 4 Not Detected (Not Detect); Respiratory Syncytial Virus Not Detected (Not Detect); SARS-CoV-2 Not Detected (Not Detect)
[2021-08-12] MEDS: *HR* HYDROcodone/Acet 5/325 mg TABLET PO PRN ×3 (05:04→22:53)
[2021-08-12] MEDS: Melatonin 3 MG TABLET PO PRN (05:04)
[2021-08-12] MEDS ORDERED: Ipratropium/Albuterol Neb 3 ML IH PRN (05:20)
[2021-08-12] MEDS ORDERED: *HR* Dextrose 50 % in Water (Syg) 50 ML SYRINGE IVP PRN (05:22)
[2021-08-12] MEDS ORDERED: D5% in Water 1,000 ML IVC PRN (05:22)
[2021-08-12] MEDS ORDERED: Dextrose Gel 15 GM/37.5 ML TUBE PO PRN ×2 (05:22)
[2021-08-12 05:26] LABS: Basophils % 0.5 %; Eosinophils # 0.2 K/mcL (0.0-0.6); Eosinophils % 2.6 %; Hematocrit 36.9 % (37.5-50.1); Hemoglobin 12.5 g/dL (12.9-16.9); Immature Granulocytes % 0.6 % (0-4); Lymphocytes # 1.6 K/mcL (0.6-4.6); Lymphocytes % 26.3 %; Mean Corpuscular HGB Conc 33.9 g/dL (31.6-35.5); Mean Corpuscular Volume 91.6 fL (83.0-100.0); Mean Platelet Volume 9.7 fL (9.4-12.4); Monocytes # 0.6 K/mcL (0.0-1.3); Monocytes % 9.4 %; Neutrophils # 3.8 K/mcL (1.6-8.9); Platelet Count 184 K/mcL (140-400); Red Blood Count 4.03 M/mcL (4.19-5.50); Red Cell Distribution Width 12.5 % (11.5-14.5); Segmented Neutrophils % 60.6 %; White Blood Count 6.2 K/mcL (4.3-11.1)
[2021-08-12 05:33] LABS: INR 0.9; Prothrombin Time 10.4 Seconds (9.4-12.1)
[2021-08-12 05:35] LABS: Activated Partial Thrombo Time 28.1 Seconds (26.0-36.0)
[2021-08-12 05:43] LABS: BUN/Creatinine Ratio 23 (6-26); Blood Urea Nitrogen 21 mg/dL (6-20); Calcium 8.8 mg/dL (8.6-10.3); Carbon Dioxide 27 mEq/L (23-29); Chloride 102 mEq/L (98-107); Glucose 66 mg/dL (70-105); Magnesium 1.3 mg/dL (1.6-2.6); Osmolality,Calculated 287 (280-300); Potassium 3.5 mEq/L (3.5-5.1); Sodium 138 mEq/L (136-145); eGFR For African Americans > 60 (> 60); eGFR For Non-African Americans > 60 (> 60)
[2021-08-12] MEDS: Insulin LISPRO 300 UNITS/3 ML VIAL SUBQ SCH ×3 (08:50→18:19)
[2021-08-12] MEDS ORDERED: Doxycycline 100 MG CAPSULE PO SCH (09:00)
[2021-08-12] MEDS: cefTRIAXone 1,000 MG in 0.9 % Sodium Chloride Mini Bag 100 ML IVP SCH (10:08)
[2021-08-12] MEDS: Azithromycin 500 MG in 0.9 % Sodium Chloride 250 ML IVPB SCH (12:48)
[2021-08-12] MEDS: OXcarbazepine 150 MG TABLET PO SCH ×2 (14:01→19:36)
[2021-08-12] MEDS: cloNIDine HCL 0.1 MG TABLET PO SCH (14:01)
[2021-08-12] MEDS: Gabapentin 300 MG CAPSULE PO SCH ×3 (14:01→19:37)
[2021-08-12] MEDS: diazePAM 5 MG TABLET PO SCH ×3 (14:02→19:38)
[2021-08-12] MEDS: Spironolactone 25 MG TABLET PO SCH (14:02)
[2021-08-12] MEDS: hydrALAZINE 25 MG TABLET PO SCH (15:52)
[2021-08-12] MEDS: Metoprolol XL (24 HR) Succ 50 MG TAB.ER.24H PO SCH (19:38)
[2021-08-12] MEDS: *HR* Rivaroxaban 10 MG TABLET PO SCH (20:46)
[2021-08-13] MEDS: Gabapentin 300 MG CAPSULE PO SCH ×4 (08:07→21:34)
[2021-08-13] MEDS: hydroCHLOROthiazide 25 MG TABLET PO SCH (08:07)
[2021-08-13] MEDS: Spironolactone 25 MG TABLET PO SCH (08:08)
[2021-08-13] MEDS: Insulin LISPRO 300 UNITS/3 ML VIAL SUBQ SCH ×3 (08:08→17:45)
[2021-08-13] MEDS: amLODIPine 5 MG TABLET PO SCH (08:08)
[2021-08-13] MEDS: cloNIDine HCL 0.1 MG TABLET PO SCH (08:08)
[2021-08-13] MEDS: hydrALAZINE 25 MG TABLET PO SCH ×3 (08:08→17:45)
[2021-08-13] MEDS: diazePAM 5 MG TABLET PO SCH ×4 (08:08→21:34)
[2021-08-13] MEDS: cefTRIAXone 1,000 MG in 0.9 % Sodium Chloride Mini Bag 100 ML IVP SCH (08:09)
[2021-08-13] MEDS: OXcarbazepine 150 MG TABLET PO SCH ×3 (08:34→21:35)
[2021-08-13] MEDS: Azithromycin 500 MG in 0.9 % Sodium Chloride 250 ML IVPB SCH (12:07)
[2021-08-13] MEDS: *HR* HYDROcodone/Acet 5/325 mg TABLET PO PRN (15:29)
[2021-08-13 17:03] LABS: BUN/Creatinine Ratio 26 (6-26); Blood Urea Nitrogen 24 mg/dL (6-20); Calcium 10.6 mg/dL (8.6-10.3); Carbon Dioxide 27 mEq/L (23-29); Chloride 99 mEq/L (98-107); Glucose 208 mg/dL (70-105); Magnesium 1.3 mg/dL (1.6-2.6); Osmolality,Calculated 290 (280-300); Potassium 4.6 mEq/L (3.5-5.1); Sodium 135 mEq/L (136-145); eGFR For African Americans > 60 (> 60); eGFR For Non-African Americans > 60 (> 60)
[2021-08-13] MEDS: *HR* Rivaroxaban 10 MG TABLET PO SCH (17:45)
[2021-08-13] MEDS ORDERED: Ketorolac 30 MG/ML VIAL IVP ONE (17:55)
[2021-08-13] MEDS ORDERED: Insulin DETEMIR 100 UNIT/ML X5UNITS SUBQ SCH (21:00)
[2021-08-13] MEDS: Metoprolol XL (24 HR) Succ 50 MG TAB.ER.24H PO SCH (21:34)
[2021-08-13] MEDS: Melatonin 3 MG TABLET PO PRN (22:29)
[2021-08-14 01:39] LABS: Basophils % 0.6 %; Eosinophils # 0.2 K/mcL (0.0-0.6); Eosinophils % 3.3 %; Hemoglobin 12.1 g/dL (12.9-16.9); Immature Granulocytes % 0.6 % (0-4); Lymphocytes # 1.6 K/mcL (0.6-4.6); Lymphocytes % 33.6 %; Mean Corpuscular HGB Conc 33.6 g/dL (31.6-35.5); Mean Corpuscular Volume 92.3 fL (83.0-100.0); Mean Platelet Volume 9.9 fL (9.4-12.4); Monocytes # 0.5 K/mcL (0.0-1.3); Monocytes % 9.8 %; Neutrophils # 2.5 K/mcL (1.6-8.9); Platelet Count 199 K/mcL (140-400); Red Cell Distribution Width 12.3 % (11.5-14.5); Segmented Neutrophils % 52.1 %; White Blood Count 4.9 K/mcL (4.3-11.1)
[2021-08-14 01:55] LABS: BUN/Creatinine Ratio 24 (6-26); Blood Urea Nitrogen 28 mg/dL (6-20); Carbon Dioxide 28 mEq/L (23-29); Chloride 102 mEq/L (98-107); Glucose 283 mg/dL (70-105); Osmolality,Calculated 302 (280-300); Potassium 4.3 mEq/L (3.5-5.1); Sodium 138 mEq/L (136-145); eGFR For African Americans > 60 (> 60); eGFR For Non-African Americans > 60 (> 60)
[2021-08-14] MEDS: hydroCHLOROthiazide 25 MG TABLET PO SCH (08:25)
[2021-08-14] MEDS: diazePAM 5 MG TABLET PO SCH (08:26)
[2021-08-14] MEDS: hydrALAZINE 25 MG TABLET PO SCH ×2 (08:26→11:30)
[2021-08-14] MEDS: Gabapentin 300 MG CAPSULE PO SCH (08:26)
[2021-08-14] MEDS: cloNIDine HCL 0.1 MG TABLET PO SCH (08:26)
[2021-08-14] MEDS: Spironolactone 25 MG TABLET PO SCH (08:26)
[2021-08-14] MEDS: cefTRIAXone 1,000 MG in 0.9 % Sodium Chloride Mini Bag 100 ML IVP SCH (08:26)
[2021-08-14] MEDS: amLODIPine 5 MG TABLET PO SCH (08:26)
[2021-08-14] MEDS: Insulin LISPRO 300 UNITS/3 ML VIAL SUBQ SCH ×2 (08:41→11:32)
[2021-08-14 10:33] VITALS: BP 127/72; PULSE 100; TEMP 98.3; O2SAT 97
[2021-08-14] MEDS: Azithromycin 500 MG in 0.9 % Sodium Chloride 250 ML IVPB SCH (11:30)
[2021-08-14] MEDS: OXcarbazepine 150 MG TABLET PO SCH (11:31)
== END 2021-08-14 12:51 | disposition home or self-care (01) | DRG 193 ==
LOC: 2ANU 22:59 → EMEROOARM 22:59 → SUATTDRO 08-12 03:17 → 2ANU 08-12 04:06
PROVIDERS: ADMIT Internal Medicine; ATTEND Internal Medicine

== ENCOUNTER 2021-08-31 13:18 | Inpatient (IN) ==
[2021-08-31] MEDS ORDERED: Isovue-370 500 ML BOTTLE IVP ONE (13:50)
[2021-08-31] MEDS ORDERED: Ondansetron 4 MG/2 ML VIAL IVP ONE (13:50)
[2021-08-31] MEDS ORDERED: 0.9 % Sodium Chloride 1,000 ML IVC ONE (13:50)
[2021-08-31 14:23] LABS: Basophils % 0.3 %; Eosinophils # 0.1 K/mcL (0.0-0.6); Eosinophils % 1.2 %; Hemoglobin 14.1 g/dL (12.9-16.9); Immature Granulocytes % 0.4 % (0-4); Lymphocytes % 22.3 %; Mean Corpuscular HGB Conc 32.8 g/dL (31.6-35.5); Mean Corpuscular Hemoglobin 30.4 pg (28.0-33.3); Mean Corpuscular Volume 92.7 fL (83.0-100.0); Monocytes # 0.6 K/mcL (0.0-1.3); Monocytes % 6.1 %; Neutrophils # 6.3 K/mcL (1.6-8.9); Platelet Count 232 K/mcL (140-400); Red Blood Count 4.64 M/mcL (4.19-5.50); Red Cell Distribution Width 12.4 % (11.5-14.5); Segmented Neutrophils % 69.7 %
[2021-08-31 14:42] LABS: Alanine Aminotransferase 23 Units/L (7-52); Albumin 4.4 g/dL (3.5-5.7); Albumin/Globulin Ratio 1.6 (1.1-2.2); Alkaline Phosphatase 64 Units/L (34-104); Amylase 28 Units/L (29-103); Aspartate Amino Transferase 17 Units/L (13-39); BUN/Creatinine Ratio 21 (6-26); Bilirubin,Direct 0.1 mg/dL (0.0-0.2); Bilirubin,Indirect 0.3 mg/dL (0.0-1.0); Bilirubin,Total 0.4 mg/dL (0.3-1.0); Blood Urea Nitrogen 23 mg/dL (6-20); Calcium 9.6 mg/dL (8.6-10.3); Carbon Dioxide 34 mEq/L (23-29); Chloride 94 mEq/L (98-107); Globulin 2.8 g/dL (2.4-3.5); Glucose 169 mg/dL (70-105); Lipase 29 Units/L (11-82); Osmolality,Calculated 292 (280-300); Potassium 4.1 mEq/L (3.5-5.1); Sodium 137 mEq/L (136-145); Total Protein 7.2 g/dL (6.4-8.9); eGFR For African Americans > 60 (> 60); eGFR For Non-African Americans > 60 (> 60)
[2021-08-31] MEDS ORDERED: Ketorolac 30 MG/ML VIAL IVP ONE ×2 (15:49→22:00)
[2021-08-31 15:50] LABS: Bilirubin,Urine Negative (Negative); Blood,Urine Negative (Negative); Clarity,Urine Clear (Clear); Color,Urine Light-Yellow (Yellow); Glucose,Urine (UA) Normal (Normal); Ketones,Urine Negative (Negative); Leukocyte Esterase,Urine Negative (Negative); Mucus,Urine Few per lpf (None-Few); Nitrite,Urine Negative (Negative); PH,Urine 7.5 pH Units (5.0-8.0); Protein,Urine 30 mg/dL (Neg-Trace); RBC,Urine 0-3 per hpf (0-3); Specific Gravity,Urine > 1.030 (1.010-1.025); Squamous Epithelial Cell,Urine Few per hpf (None-Few); Urobilinogen,Urine Normal (Normal); WBC,Urine 0-3 per hpf (0-3)
[2021-08-31] MEDS ORDERED: Naloxone 0.4 MG/ML INJ IVP PRN ×2 (16:17→16:19)
[2021-08-31] MEDS ORDERED: *HR* Heparin 5,000 UNIT/ML VIAL IVP ONE (16:42)
[2021-08-31] MEDS ORDERED: *HR* Heparin 5,000 UNIT/ML VIAL IVP PRN ×2 (16:42)
[2021-08-31] MEDS ORDERED: Heparin 25,000UNIT/250ML 1/2NS 25,000 UNIT/250 ML IV.SOLN IVC SCH (16:45)
[2021-08-31] MEDS: Morphine Sulfate 2 MG/ML SYRINGE IVP PRN (16:57)
[2021-08-31] MEDS: Heparin 25,000UNIT/250ML 1/2NS 25,000 UNIT/250 ML IV.SOLN IVC SCH (18:30)
[2021-08-31] MEDS: 0.9 % Sodium Chloride 1,000 ML IVC SCH (18:34)
[2021-08-31 19:33] LABS: Heparin anti-factor XA UFH < 0.04 IU/mL (0.30-0.70); INR 1.1; Prothrombin Time 11.8 Seconds (9.4-12.1)
[2021-08-31] MEDS ORDERED: *HR* LORazepam 2 MG/ML VIAL IVP ONE (21:01)
[2021-09-01 01:34] LABS: Basophils % 0.4 %; Eosinophils # 0.2 K/mcL (0.0-0.6); Eosinophils % 2.2 %; Hematocrit 36.1 % (37.5-50.1); Immature Granulocytes % 0.4 % (0-4); Lymphocytes # 1.9 K/mcL (0.6-4.6); Lymphocytes % 27.9 %; Mean Corpuscular HGB Conc 34.1 g/dL (31.6-35.5); Mean Corpuscular Hemoglobin 30.8 pg (28.0-33.3); Mean Corpuscular Volume 90.5 fL (83.0-100.0); Mean Platelet Volume 10.1 fL (9.4-12.4); Monocytes # 0.5 K/mcL (0.0-1.3); Monocytes % 7.2 %; Neutrophils # 4.1 K/mcL (1.6-8.9); Platelet Count 161 K/mcL (140-400); Red Blood Count 3.99 M/mcL (4.19-5.50); Red Cell Distribution Width 12.1 % (11.5-14.5); Segmented Neutrophils % 61.9 %; White Blood Count 6.7 K/mcL (4.3-11.1)
[2021-09-01 01:39] LABS: Hemoglobin 12.3 g/dL (12.9-16.9)
[2021-09-01 01:50] LABS: BUN/Creatinine Ratio 24 (6-26); Blood Urea Nitrogen 24 mg/dL (6-20); Calcium 8.6 mg/dL (8.6-10.3); Carbon Dioxide 30 mEq/L (23-29); Chloride 100 mEq/L (98-107); Glucose 94 mg/dL (70-105); Osmolality,Calculated 292 (280-300); Potassium 3.5 mEq/L (3.5-5.1); Sodium 139 mEq/L (136-145); eGFR For African Americans > 60 (> 60); eGFR For Non-African Americans > 60 (> 60)
[2021-09-01] MEDS: Morphine Sulfate 2 MG/ML SYRINGE IVP PRN ×3 (05:04→18:43)
[2021-09-01] MEDS ORDERED: Ondansetron 4 MG/2 ML VIAL IVP PRN (08:04)
[2021-09-01] MEDS: 0.9 % Sodium Chloride 1,000 ML IVC SCH (08:47)
[2021-09-01] MEDS: Acetaminophen IV 1,000 MG/100 ML BAG IVPB SCH ×2 (10:06→19:38)
[2021-09-01] MEDS: Heparin 25,000UNIT/250ML 1/2NS 25,000 UNIT/250 ML IV.SOLN IVC SCH (23:58)
[2021-09-02] MEDS: Morphine Sulfate 2 MG/ML SYRINGE IVP PRN ×2 (00:24→07:20)
[2021-09-02] MEDS: Acetaminophen IV 1,000 MG/100 ML BAG IVPB SCH ×5 (00:25→20:59)
[2021-09-02] MEDS ORDERED: *HR* Metoprolol 5 MG/5 ML VIAL IVP ONE (06:56)
[2021-09-02 07:02] LABS: Basophils % 0.6 %; Eosinophils # 0.1 K/mcL (0.0-0.6); Eosinophils % 1.4 %; Hematocrit 37.2 % (37.5-50.1); Hemoglobin 12.4 g/dL (12.9-16.9); Immature Granulocytes % 0.5 % (0-4); Lymphocytes # 0.9 K/mcL (0.6-4.6); Lymphocytes % 14.5 %; Mean Corpuscular HGB Conc 33.3 g/dL (31.6-35.5); Mean Corpuscular Hemoglobin 30.2 pg (28.0-33.3); Mean Corpuscular Volume 90.5 fL (83.0-100.0); Mean Platelet Volume 9.9 fL (9.4-12.4); Monocytes # 0.4 K/mcL (0.0-1.3); Monocytes % 5.6 %; Platelet Count 164 K/mcL (140-400); Red Blood Count 4.11 M/mcL (4.19-5.50); Segmented Neutrophils % 77.4 %; White Blood Count 6.4 K/mcL (4.3-11.1)
[2021-09-02] MEDS ORDERED: *HR* LORazepam 2 MG/ML VIAL IVP ONE (07:40)
[2021-09-02] MEDS ORDERED: *HR* LORazepam 2 MG/ML VIAL IVP PRN (07:48)
[2021-09-02 08:28] LABS: BUN/Creatinine Ratio 18 (6-26); Blood Urea Nitrogen 14 mg/dL (6-20); Calcium 8.9 mg/dL (8.6-10.3); Carbon Dioxide 26 mEq/L (23-29); Chloride 103 mEq/L (98-107); Glucose 119 mg/dL (70-105); Osmolality,Calculated 294 (280-300); Potassium 3.8 mEq/L (3.5-5.1); Sodium 141 mEq/L (136-145); eGFR For African Americans > 60 (> 60); eGFR For Non-African Americans > 60 (> 60)
[2021-09-02] MEDS: amLODIPine 5 MG TABLET PO SCH (15:31)
[2021-09-02] MEDS: cloNIDine HCL 0.1 MG TABLET PO SCH (15:31)
[2021-09-02] MEDS ORDERED: *HR* Rivaroxaban 10 MG TABLET PO SCH (17:00)
[2021-09-02] MEDS: diazePAM 5 MG TABLET PO SCH ×2 (17:25→20:10)
[2021-09-02] MEDS: Gabapentin 300 MG CAPSULE PO SCH ×2 (17:25→20:10)
[2021-09-02] MEDS: OXcarbazepine 150 MG TABLET PO SCH ×2 (17:25→20:15)
[2021-09-02] MEDS: hydrALAZINE 25 MG TABLET PO SCH (17:25)
[2021-09-02] MEDS ORDERED: Metoprolol XL (24 HR) Succ 50 MG TAB.ER.24H PO SCH (21:00)
[2021-09-03 02:30] LABS: Basophils % 0.5 %; Eosinophils # 0.1 K/mcL (0.0-0.6); Eosinophils % 1.9 %; Hematocrit 35.9 % (37.5-50.1); Hemoglobin 12.5 g/dL (12.9-16.9); Immature Granulocytes % 0.3 % (0-4); Lymphocytes # 1.4 K/mcL (0.6-4.6); Lymphocytes % 24.5 %; Mean Corpuscular HGB Conc 34.8 g/dL (31.6-35.5); Mean Corpuscular Hemoglobin 31.1 pg (28.0-33.3); Mean Corpuscular Volume 89.3 fL (83.0-100.0); Mean Platelet Volume 10.1 fL (9.4-12.4); Monocytes # 0.6 K/mcL (0.0-1.3); Monocytes % 9.5 %; Neutrophils # 3.7 K/mcL (1.6-8.9); Platelet Count 169 K/mcL (140-400); Red Blood Count 4.02 M/mcL (4.19-5.50); Red Cell Distribution Width 12.1 % (11.5-14.5); Segmented Neutrophils % 63.3 %; White Blood Count 5.9 K/mcL (4.3-11.1)
[2021-09-03 02:47] LABS: BUN/Creatinine Ratio 14 (6-26); Blood Urea Nitrogen 12 mg/dL (6-20); Calcium 9.3 mg/dL (8.6-10.3); Carbon Dioxide 30 mEq/L (23-29); Chloride 103 mEq/L (98-107); Glucose 106 mg/dL (70-105); Osmolality,Calculated 286 (280-300); Potassium 3.4 mEq/L (3.5-5.1); Sodium 138 mEq/L (136-145); eGFR For African Americans > 60 (> 60); eGFR For Non-African Americans > 60 (> 60)
[2021-09-03] MEDS: Acetaminophen IV 1,000 MG/100 ML BAG IVPB SCH ×2 (03:13→08:40)
[2021-09-03 06:54] VITALS: O2SAT 95
[2021-09-03] MEDS: diazePAM 5 MG TABLET PO SCH (08:39)
[2021-09-03] MEDS: amLODIPine 5 MG TABLET PO SCH (08:40)
[2021-09-03] MEDS: cloNIDine HCL 0.1 MG TABLET PO SCH (08:40)
[2021-09-03] MEDS: Gabapentin 300 MG CAPSULE PO SCH (08:40)
[2021-09-03] MEDS: OXcarbazepine 150 MG TABLET PO SCH (08:40)
[2021-09-03] MEDS: hydrALAZINE 25 MG TABLET PO SCH (08:40)
[2021-09-03] MEDS ORDERED: hydroCHLOROthiazide 25 MG TABLET PO SCH (09:00)
[2021-09-03] MEDS ORDERED: Acetaminophen 325 MG TABLET PO PRN (10:48)
[2021-09-03 11:13] VITALS: BP 135/88; PULSE 103; TEMP 98.8
== END 2021-09-03 13:07 | disposition home or self-care (01) | DRG 389 ==
LOC: EMEROOARM 13:18 → 3ANU 13:18 → SUATTDRO 20:46
PROVIDERS: ADMIT Hospitalist; ATTEND Student in an Organized Health Care Education/Training Program